=== PATIENT | female | born 1965 | race Caucasian/White ===

== ENCOUNTER 2023-07-20 11:21 | Outpatient (REF) | payer OTHER, SELFPAY ==
[2023-07-20 15:36] LABS: Iron 47 mcg/dL (30-160); Percent Iron Saturation 13 % (15-50); Total Iron Binding Capacity 356 mcg/dL (228-428); Unsaturated Iron Binding 309 ug/dL
[2023-07-20 15:44] LABS: TSH reflex Free T4 7.86 uIU/mL (0.32-4.0)
[2023-07-20 15:49] LABS: Vitamin B12 297 pg/mL (200-900)
[2023-07-20 16:20] LABS: Free T4 (Free Thyroxine) 0.74 ng/dL (0.71-1.85)
== END 2023-07-20 11:22 | disposition home or self-care (01) ==
LOC: HO.WFDLDS 11:21
PROVIDERS: Visit Provider Internal Medicine
DX: R53.83 Other fatigue (principal); R79.89 Other specified abnormal findings of blood chemistry; E03.8 Other specified hypothyroidism; E06.3 Autoimmune thyroiditis
CPT/HCPCS: 36415; 82607; 83540; 84439; 84443

== ENCOUNTER 2023-09-01 08:56 | Outpatient (AMB) | payer OTHER, SELFPAY ==
--- NOTE | 2023-09-01 09:07 | MHC.PC.OV ---
Vital Signs 09/01/23 09:13 Height 5 ft 7 in Weight 163 lb 6 oz BMI 25.6 BP 128/78 Blood Pressure Location Rt brachial Position Sitting Pulse 79 Pulse Source Pulse Oximeter Temp 97.8 F Temp Source Temporal Artery Scan Pulse Oximetry (%) 98 Oxygen Delivery Method Room Air Intake Visit Reasons: 6 week F/U depression Intake Note: patient here for follow up for depression. [place]uillon Debeader Required: No Allergies prochlorperazine [From Compazine] Allergy (Unknown, Verified 09/01/23 09:11) Throat closes Tobacco use date assessed: 07/17/23 Dental Screening Dental Screen Date: 07/17/23 HPI HPI Comments History of Present Illness Details 58 y/o female with past medical history of recurrent sinusitis, SVT likely POTS, anxiety & depression, hypothyroid, anemia presenting for follow up Anxiety/depression: Doing well with additional of low dose wellbutrin to her cymbalta. off zoloft CV: Following with cardiology. Plan for tilt table testing Increased sinus congestion, headache. ROS see HPI PHYSICAL EXAM: GENERAL: Alert and oriented x 3. NAD EYES: EOMI. Anicteric. HENT: Moist mucous membranes. No scleral icterus. No cervical lymphadenopathy. LUNGS: Clear to auscultation bilaterally. CARDIOVASCULAR: Regular rate and rhythm. No murmur. No JVD. ABDOMEN: Soft, non-tender +bs EXTREMITIES: No edema. Non-tender. SKIN: No rashes or lesions. Warm. NEUROLOGIC: No focal neurological deficits. CN II-XII grossly intact PSYCHIATRIC: Cooperative. Appropriate mood and affect ON LICENSE OF [facility] Medical History (Updated 09/03/23 @ 10:56 by Mattie Raymundo MD) Depression Anxiety Psoriasis Headache Peptic ulcer POTS (postural orthostatic tachycardia syndrome) Palpitations Sinusitis Cyst of ovary Family History (Updated 07/17/23 @ 11:52 by Maribel Benedict CMA) Father HTN (hypertension) Hypercholesteremia Cardiovascular disease Basal cell carcinoma Mother Hypercholesteremia Thyroid disorder Anxiety Other Mental disorder Social History (Updated 07/17/23 @ 11:22 by Maribel Benedict CMA) Housing: House e-Cigarette/Vaping Use: Never Used service: No Current occupational status: employed 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 1. Little interest or pleasure in doing things: several days 2. Feeling down, depressed, or hopeless: several days 3. Trouble falling or staying asleep, or sleeping too much: not at all 4. Feeling tired or having little energy: several days 5. Poor appetite or overeating: not at all 6. Feeling bad about yourself - or that you are a failure or have let yourself or your family down: not at all 7. Trouble concentrating on things, such as reading the newspaper or watching television: not at all 8. Moving or speaking so slowly that other people could have noticed. Or the opposite - being so fidgety or restless that you have been moving around a lot more than usual: not at all 9. Thoughts that you would be better off or of hurting yourself in some way: not at all Total score: 3 61313 - PHQ-9 Billing: Yes Source: Developed by Drs. Konstantin Joy, Cata Romero, Román Cagle and colleagues, with an educational jarett from [employer]. Thrive Questionnaire Date Thrive assessed: 09/01/23 I am a: Patient What is your living situation today?: I have a steady place to live Within the past 12 months, did the food you bought not last and you didn't have the money to get more?: Never true Within the past 12 months, did you worry whether your food would run out before you got money to buy more?: Never true Do you have trouble paying for medicines?: No Do you have trouble getting transportation to medical appointments?: No Do you have trouble paying your heating and electricity bill?: No Do you have trouble taking care of your child, family member or friend?: No Do you have trouble with day-to-day activities such as bathing, preparing meals, shopping, managing finances, etc.?: No Are you currently unemployed and looking for a job?: No Are you interested in more education?: No Please select the resources that you would like help with: None Currently or been in a relationship where the following occur: No concerns reported THRIVE Score: 0 TANVI-7 AMB Questionnaire TANVI-7 Date TANVI - 7 assessed: 09/01/23 Feeling nervous, anxious, or on edge: 1 = Several days Not being able to stop or control worryin = Several days Worrying too much about different things: 1 = Several days Trouble relaxin = Not at all Being so restless that it is hard to sit still: 0 = Not at all Becoming easily annoyed or irritable: 0 = Not at all Feeling afraid as if something awful might happen: 0 = Not at all Total TANVI-7 score (0-4 normal; 5-9 mild; 10-14 moderate; 15-21 severe): 3 Source: Developed by Drs. Konstantin Joy, Cata Romero, Román Cagle and colleagues, with an educational jarett from [employer]. TANVI-7 Assessment Billing TANVI-7 Assessment Tool: TANVI-7 Assessment 75881 Physical exam (Primary Care) Vital Signs: Last Vital Signs Temp 97.8 F 09/01/23 09:13 Pulse 79 09/01/23 09:13 BP 128/78 09/01/23 09:13 Pulse Ox 98 09/01/23 09:13 Oxygen Delivery Method Room Air 09/01/23 09:13 BMI result Body Mass Index 25.6 Tobacco/Smoking Status: Tobacco use Status Tobacco use date assessed 07/17/23 09/01/23 09:10 e-Cigarette/Vaping Use Never Used 09/01/23 09:10 PHQ-9: PHQ-9 Score PHQ-9: Total score 3 09/03/23 10:57 Thrive Assessment: Date of Thrive Assessment Date Thrive assessed 09/01/23 09/01/23 09:19 Currently or been in a relationship where the following occur: No concerns reported Assessment and Plan Assessment & Plan (1) Depression, major, recurrent, in partial remission: Comment: continue wellbutrin. continue cymbalta. both lower doses but could taper cymbalta and go up on wellbutrin Code(s): F33.41 - Major depressive disorder, recurrent, in partial remission (2) Recurrent sinus infections: Code(s): J32.9 - Chronic sinusitis, unspecified Medications: New azithromycin 500 mg PO DAILY 5 tabs 0RF 5 days Refilled bupropion HCl XL (Wellbutrin XL) 150 mg PO QAM 90 tabs 3RF amoxicillin-pot clavulanate 875-125 mg 1 tab PO BID 20 tabs 0RF 10 days Coding Level of Care Code Est Pt Level 4 (65327) Diagnoses Depression, major, recurrent, in partial remission F33.41 Recurrent sinus infections J32.9 Additional Codes TANVI-7 Assessment Billing - TANVI-7 Assessment Tool: TANVI-7 Assessment 71041 ([id number])
[2023-09-01 09:13] VITALS: BP 128/78; PULSE 79; TEMP 36.6; O2SAT 98; BMI 25.6
== END 2023-09-01 13:33 | disposition home or self-care (01) ==
PROVIDERS: PCP Internal Medicine; Visit Provider Internal Medicine
DX: J32.9 Chronic sinusitis, unspecified (principal); F33.41 Major depressive disorder, recurrent, in partial remission
CPT/HCPCS: 99214

== ENCOUNTER 2023-09-29 15:38 | Outpatient (REF) | payer OTHER, SELFPAY ==
--- NOTE | ~2023-09-29 | US_ITS ---
EXAMINATION: US THYROID CLINICAL INFORMATION: Other specified hypothyroidism. COMPARISON: None available. TECHNIQUE: Linear transducer grayscale and color Doppler examination with attention to the region of the thyroid. FINDINGS: SIZE: Measurements of the thyroid lobes and nodules are given in sagittal, anteroposterior and transverse dimensions respectively. Right Thyroid Lobe: 5.5 x 1.8 x 1.4 cm, volume 7.2 mL. Parenchyma: The gland echotexture is heterogeneous. Thyroid vascularity is increased. Left Thyroid Lobe: 5.0 x 2.0 x 2.0 cm, volume 10.5 mL. Parenchyma: The gland echotexture is heterogeneous. Thyroid vascularity is increased. Isthmus: 0.3 cm in maximum AP dimension. Estimated total number of nodules greater than or equal to 1 cm: 1. Radio Recorder nodules are described as follows: 1. Location: Right lower pole. Size: 1.1 x 1.0 x 0.8 cm, volume 0.5 mL. Nodule characteristics: Composition: Solid (2). Echogenicity: Hyperechoic (1). Shape: Taller than wide (3). Margins: Lobulated (2). Echogenic Foci: None (0). ACR TI-RADS total points: 8. ACR TI-RADS category: 5. 2. Location: Right lower pole. Size: 0.9 x 0.8 x 0.9 cm, volume 0.3 mL. Nodule characteristics: Composition: Solid (2). Echogenicity: Isoechoic (1). Shape: Not taller than wide (0). Margins: Smooth (0). Echogenic Foci: None (0). ACR TI-RADS total points: 3. ACR TI-RADS category: 3. 3. Location: Left midpole. Size: 2.3 x 1.6 x 1.7 cm, volume 3.1 mL. Nodule characteristics: Composition: Solid (2). Echogenicity: Hypoechoic (2). Shape: Not taller than wide (0). Margins: Smooth (0). Echogenic Foci: None (0). ACR TI-RADS total points: 4. ACR TI-RADS category: 4. NODES: No lymphadenopathy is seen in the tissue surrounding the thyroid gland. US/US thyroid IMPRESSION: 1.1 cm right TR5 thyroid nodule meets criteria for biopsy. Fine-needle aspiration recommended if not already performed. 2.3 cm left TR4 thyroid nodule meets criteria for biopsy. Fine-needle aspiration recommended if not already performed. This study was presented to me on November 20, 2023 for interpretation. PSA staff will provide results to referring provider at this time. Results provided to referring physician as requested. ACR TI-RADS RECOMMENDATION REFERENCE: Ultrasound-guided fine-needle aspiration, follow up ultrasound, no further followup. * TR1 (0 point) and TR2 (2 points): No FNA or followup * TR3 (3 points): FNA if more than or equal to 2.5 cm in maximum dimension, follow up ultrasound in 1, 3 and 5 years if 1.5 to 2.4 cm in maximum dimension. * TR4 (4-6 points): FNA if more than or equal to 1.5 cm in maximum dimension, follow up ultrasound in 1, 2, 3 and 5 years if 1 to 1.4 cm in maximum dimension. * TR5 (more than or equal to 7 points): FNA if more than or equal to 1 cm in maximum dimension, follow up ultrasound every year for 5 years if 0.5 to 0.9 cm in maximum dimension. * TR3, TR4 or TR5 nodules that are below the size threshold for follow up receive no followup. Electronically signed by: Lidia Santana MD 11/20/2023 08:26 AM EDT
== END 2023-09-29 15:39 | disposition home or self-care (01) ==
LOC: HO.US 15:38
PROVIDERS: PCP Internal Medicine; Visit Provider Internal Medicine
DX: E04.1 Nontoxic single thyroid nodule (principal); E03.8 Other specified hypothyroidism; E06.3 Autoimmune thyroiditis
CPT/HCPCS: 76536

== ENCOUNTER 2023-11-27 14:33 | Outpatient (AMB) | payer OTHER, SELFPAY ==
--- NOTE | 2023-11-27 14:07 | A.OFFPC_ITS ---
Intake Visit Reasons: thyroid u/s Intake Note: Patient would like to discuss the ultrasound results. 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 She is currently off levothyroxine. Has been off for some time. History of SVT. Anxiety/depression: Doing well with additional of low dose wellbutrin to her cymbalta. off zoloft CV: Following with cardiology. Has upcoming appt Increased sinus congestion, headache. Has felt flu like symptoms, increase sinus pressure, excessive fatigue for the past 6 weeks. ROS see HPI PHYSICAL EXAM: Telehealth [facility] Medical History (Updated 11/27/23 @ 14:24 by Mattie Raymundo MD) Depression Anxiety Psoriasis Headache Peptic ulcer POTS (postural orthostatic tachycardia syndrome) Palpitations Sinusitis Cyst of ovary Family History (Updated 07/17/23 @ 11:52 by Maribel Benedict CMA) Father HTN (hypertension) Hypercholesteremia Cardiovascular disease Basal cell carcinoma Mother Hypercholesteremia Thyroid disorder Anxiety Other Mental disorder Social History (Updated 07/17/23 @ 11:22 by Maribel Benedict CMA) Housing: House e-Cigarette/Vaping Use: Never Used service: No Current occupational status: employed 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 Konstantin Joy, Cata Romero, Román Cagle and colleagues, with an educational jarett from [employer]. Physical exam (Primary Care) Tobacco/Smoking Status: Tobacco use Status Tobacco use date assessed 07/17/23 11/27/23 14:20 e-Cigarette/Vaping Use Never Used 11/27/23 14:20 Thrive Assessment: Date of Thrive Assessment Date Thrive assessed 09/01/23 11/27/23 14:20 Telehealth Telehealth Telehealth Platform: Telephone Location of provider rendering services: practice address Location of patient: address on file Patient Identification confirmed using: Name, : Yes Telehealth method: voice only Patient verbally consented to treatment: Yes Patient verbally consented to billing insurance company: Yes Patient informed of any privacy concerns related to visit: Yes Minutes spent on Phone/Video with Pt.: 25 Assessment and Plan Assessment & Plan (1) Flu-like symptoms: Code(s): R68.89 - Other general symptoms and signs Plan: Labs ordered (2) Thyroid nodule: Code(s): E04.1 - Nontoxic single thyroid nodule Plan: Thyroid nodules-some meeting criteria for biopsy-referral to endocrine placed Check TSH Orders: Orders Monotest 11/28/23 R68.89 - Other general symptoms and signs Complete Blood Count Auto Diff 11/28/23 R68.89 - Other general symptoms and signs Lyme IgG/IgM w/reflex to WB 11/28/23 R68.89 - Other general symptoms and signs Medications: Refilled azithromycin 500 mg PO DAILY 5 tabs 0RF 5 days Coding Level of Care Code Tele Est Pt Level 4 (22108) Diagnoses Flu-like symptoms 8. Thyroid nodule E04.1
== END 2023-11-27 17:03 | disposition home or self-care (01) ==
LOC: HO.HMCFM 14:33
PROVIDERS: PCP Internal Medicine; Visit Provider Internal Medicine
DX: E04.1 Nontoxic single thyroid nodule (principal); R68.89 Other general symptoms and signs

== ENCOUNTER → 2023-11-27 14:33 | Outpatient (BNVA) | payer OTHER, SELFPAY | PROVIDERS: PCP Internal Medicine; Visit Provider Internal Medicine | DX: R68.89 Other general symptoms and signs (principal) ==

== ENCOUNTER 2023-11-28 13:54 | Outpatient (REF) | payer OTHER, SELFPAY ==
[2023-11-28 18:13] LABS: MANUAL DIFF FLAG NO
[2023-11-28 18:56] LABS: Basophils Percent Auto 0.8 % (0-2); Eosinophils Absolute Auto 0.2 X10*3/uL (0.0-0.4); Hematocrit 38.9 % (37.0-47.0); Hemoglobin 12.3 g/dl (12.0-16.0); Imm Gran Abs Auto 0.01 X10*3/uL (0.00-0.03); Imm Gran Pct Auto 0.3 % (0.0-0.4); Lymphocytes Absolute Auto 1.3 X10*3/uL (1.2-4.9); Mean Corpuscular HGB Conc 31.6 g/dl (31.0-35.0); Mean Corpuscular Hemoglobin 26.6 pg (27.0-33.0); Mean Platelet Volume 9.7 fL (9.4-12.3); Monocytes Absolute Auto 0.3 X10*3/uL (0.1-1.2); Monocytes Percent Auto 7.9 % (2-11); Neutrophils Absolute Auto 1.8 x10*3/uL (2.0-8.3); Platelet Count 204 X10*3/uL (160-400); Red Blood Count 4.63 X10*6/uL (4.20-5.50); Red Cell Distribution Width 13.6 % (11.0-16.0); White Blood Count 3.7 X10*3/uL (4.8-10.8)
[2023-11-28 18:58] LABS: Cholesterol 238 mg/dL (<200); HDL Cholesterol 55 mg/dL (>40); Iron 56 mcg/dL (30-160); LDL Cholesterol Calculated 164 mg/dL (<100); Percent Iron Saturation 16 % (15-50); Total Iron Binding Capacity 342 mcg/dL (228-428); Triglycerides 99 mg/dL (<150); Unsaturated Iron Binding 286 ug/dL
[2023-11-28 19:18] LABS: TSH reflex Free T4 3.73 uIU/mL (0.32-4.0)
[2023-11-28 20:14] LABS: Monotest Negative (Negative)
[2023-11-29 20:08] LABS: Lyme Abs Screen <0.90 index
== END 2023-11-28 13:55 | disposition home or self-care (01) ==
LOC: HO.WFDLDS 13:54
PROVIDERS: Visit Provider Internal Medicine
DX: R53.83 Other fatigue (principal); R68.89 Other general symptoms and signs; E06.3 Autoimmune thyroiditis; E03.8 Other specified hypothyroidism; R79.89 Other specified abnormal findings of blood chemistry; J32.9 Chronic sinusitis, unspecified
CPT/HCPCS: 36415; 80061; 83540; 84443; 85025; 86308; 86617; 86618

== ENCOUNTER 2023-12-08 07:40 | Outpatient (AMB) | payer OTHER, SELFPAY ==
--- NOTE | 2023-12-08 07:49 | MHC.OFFVIS ---
Vital Signs 12/08/23 07:50 Height 5 ft 7 in Weight 166 lb 14.239 oz BMI 26.1 BP 148/92 H Blood Pressure Location Lt brachial Position Sitting Pulse 85 Pulse Source Pulse Oximeter Intake Visit Reasons: Nontoxic single thyroid nodule-conf Intake Note: New patient present today for nontoxic single thyroid nodule office visit. Airline Lounge Receptionist Required: No Accompanied by: Daughter Allergies prochlorperazine [From Compazine] Allergy (Unknown, Verified 12/08/23 07:52) Throat closes Medication List - Last Reconciled 12/08/23 by Karen Cosby MD amoxicillin 1,000 mg PO BID amoxicillin-pot clavulanate 875-125 mg 1 tab PO BID 10 days azithromycin 500 mg PO DAILY 5 days blood sugar diagnostic ([employer] Ultra Test strips) As directed bupropion HCl XL (Wellbutrin XL) 150 mg PO QAM ntrgdxywlq-tvchgawuagbfo-xdge 50-325-40 mg 1 tab PO Q6H PRN 30 days ciclopirox 8% topical clobetasol 0.05% topical DAILY clotrimazole 1% 1 appl topical BID clotrimazole-betamethasone 1-0.05 % 1 appl topical BID duloxetine 60 mg PO DAILY fluticasone propionate 50 mcg/actuation 1 spray intranasal BID lorazepam 1 mg PO Q6H PRN 28 days mupirocin 2% 1 appl topical BID 30 days propranolol 20 mg PO TID silver sulfadiazine 1% appl topical HPI Comments Details: 58-year-old female coming in today for initial evaluation of multiple thyroid nodules. Also has history of hypothyroidism. Hypothyrodism was diagnosed 2016 and fabienne was on levothyroxine 75 mcg daily for a few years but was not very regular with it. She has now been off it for at least a year. Most rceent blood work from 07/27 showed TSH high at 7.8 and normal free T4 , however she remained off the medication and then most recent labs from 11/30/23 were normal TSH at 3.73. Diagnosed with thyroid nodules in [address] [facility] underwent FNA [address] [place] she thinks , was benign not sure how many nodules or which side. Ultrasound from September 2023, I reviewed the images myself which show multiple bilateral thyroid nodules. She has a left dominant 2.3 cm solid hypoechoic nodule, TR 4 category, per DAVID this is intermediate suspicion nodule with a 10-20% chance of malignancy. Meets criteria for FNA. On the right side she has a dominant 1.1 cm right lower pole nodule which is reported as taller than wide and lobulated making it a TR 5 category nodule, however when I look at the images myself, it is not very distinguished nodule, almost appears as if she has a pseudonodule. Given her history of Jelly's/hypothyroidism, she might have pseudonodules. I would like to hold off on biopsy of this nodule for now, we will look at it with the ultrasound briefly when I biopsy her left dominant nodule. But for now we will plan to follow this with a 6 month repeat ultrasound. Another subcentimeter right lower pole nodule 0.9 cm in maximum dimension does not meet criteria for biopsy, solid, isoechoic, TR 3 nodule, low suspicion category per DAVID guidelines with a 5-10% chance malignancy. Patient currently denies heat or cold intolerance, diarrhea or constipation, hair loss, palpitation, anxiety, weight changes, mood changes, low energy, changes in appearance of eyes or vision changes, tremors, increased diaphoresis or dry skin. Post menopausal since 49. Was recenlty diagnosed with POTs , was having palpitations, tachycardria before but since starting propranolol and other measures for POTS , all of this has resolved. Still reports fatigue. Not worsening. Gained 6 lbs over the summer. Patient denies any difficulty swallowing with food , but just some trouble swallowing with big pills , pain on swallowing or voice changes or difficulty breathing. Patient denies any history of childhood neck radiation. Denies having ever used lithium, amiodarone or biotin supplements. Patient denies any family history of thyroid cancer or thyroid disease. Daughter has thyroid nodules and Hashimotos. 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 [employer] Review of systems Constitutional: no fevers, chills or weight loss HEENT: no changes in vision Cardiac:palpitation now resolved with propranolol Pulmonary: No SOB GI:No abdominal pain, no nausea or vomiting, no anorexia, no blood in stool : no burning micturition, dysuria or increase in urinary frequency Physical exam General: sitting comfortably in no acute distress HEENT: normocephalic/atraumatic, EOM intact, moist oral mucosa Neck: supple, symmetrical, palpable left-sided 2 cm nodule Cardiac: normal heart sounds Pulm: normal breath sounds B/L, no added breath sounds Abd: not distended, no tenderness Extremities: no edema, no signs of myxedema Neuro: AAO x3, Speech: normal, no facial droop, moving all 4 extremities [facility] Medical History (Updated 12/08/23 @ 10:29 by Karen Cosby MD) Multinodular goiter Depression Anxiety Psoriasis Headache Peptic ulcer POTS (postural orthostatic tachycardia syndrome) Palpitations Sinusitis Cyst of ovary Family History Father HTN (hypertension) Hypercholesteremia Cardiovascular disease Basal cell carcinoma Mother Hypercholesteremia Thyroid disorder Anxiety Other Mental disorder Social History Housing: House e-Cigarette/Vaping Use: Never Used service: No Current occupational status: employed 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 Meets criteria for FNA. Unclear whether this was biopsied before. She also has a left lower lobe 1.1 cm nodule that is labeled as solid, hyperechoic, taller than wide and lobulated and commented on as a TR 5 nodule, however when I reviewed the images myself, she has a very heterogenous gland so looks more like a pseudonodule. I will plan to look at this nodule briefly when I plan to do the biopsy of the left mid lobe 2.3 cm nodule. CLINICAL INFORMATION: Other specified hypothyroidism. COMPARISON: None available. TECHNIQUE: Linear transducer grayscale and color Doppler examination with attention to the region of the thyroid. FINDINGS: SIZE: Measurements of the thyroid lobes and nodules are given in sagittal, anteroposterior and transverse dimensions respectively. Right Thyroid Lobe: 5.5 x 1.8 x 1.4 cm, volume 7.2 mL. Parenchyma: The gland echotexture is heterogeneous. Thyroid vascularity is increased. Left Thyroid Lobe: 5.0 x 2.0 x 2.0 cm, volume 10.5 mL. Parenchyma: The gland echotexture is heterogeneous. Thyroid vascularity is increased. Isthmus: 0.3 cm in maximum AP dimension. Estimated total number of nodules greater than or equal to 1 cm: 1. Lead Press Operator nodules are described as follows: 1. Location: Right lower pole. Size: 1.1 x 1.0 x 0.8 cm, volume 0.5 mL. Nodule characteristics: Composition: Solid (2). Echogenicity: Hyperechoic (1). Shape: Taller than wide (3). Margins: Lobulated (2). Echogenic Foci: None (0). ACR TI-RADS total points: 8. ACR TI-RADS category: 5. 2. Location: Right lower pole. Size: 0.9 x 0.8 x 0.9 cm, volume 0.3 mL. Nodule characteristics: Composition: Solid (2). Echogenicity: Isoechoic (1). Shape: Not taller than wide (0). Margins: Smooth (0). Echogenic Foci: None (0). ACR TI-RADS total points: 3. ACR TI-RADS category: 3. 3. Location: Left midpole. Size: 2.3 x 1.6 x 1.7 cm, volume 3.1 mL. Nodule characteristics: Composition: Solid (2). Echogenicity: Hypoechoic (2). Shape: Not taller than wide (0). Margins: Smooth (0). Echogenic Foci: None (0). ACR TI-RADS total points: 4. ACR TI-RADS category: 4. NODES: No lymphadenopathy is seen in the tissue surrounding the thyroid gland. US/US thyroid IMPRESSION: 1.1 cm right TR5 thyroid nodule meets criteria for biopsy. Fine-needle aspiration recommended if not already performed. 2.3 cm left TR4 thyroid nodule meets criteria for biopsy. Fine-needle aspiration recommended if not already performed. This study was presented to me on November 20, 2023 for interpretation. PSA staff will provide results to referring provider at this time. Results provided to referring physician as requested. 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 She was irregular when she was taking it. However she has been off it for about a year, recently she was having some symptoms tachycardia, palpitations, fatigue, however was also diagnosed POTS recently in your symptoms are improved with propranolol. She had blood work done which showed elevated TSH of 7.8 in July 2023 when she was off levothyroxine however continued to remain off it and most recently blood work done in November 2023 showed normal TSH of 3.27. Her weight has remained stable. Her palpitations/tachycardia has resolved she continues to have fatigue but it is not excessively worsening. At this time she can remain off levothyroxine if needed plan to repeat her labs in another 4 weeks. This could be in her own history dying, unusual for her to require levothyroxine for so many years and then come off it now. Plan: -ordered TSH, free T4 to be done in 1 month -remain off levothyroxine for now (2) Multinodular goiter: Code(s): E04.2 - Nontoxic multinodular goiter Category: Medical Plan: Patient with no personal history of head or neck radiation, with no family history of thyroid cancer who has a history multiple thyroid nodules diagnosed in 2013. She has had a biopsy of at least 1 of these nodules but she is not sure which side was done or what nodule was biopsied. She reports the result was benign. Ultrasound from September 2023, I reviewed the images myself which show multiple bilateral thyroid nodules. She has a left dominant 2.3 cm solid hypoechoic nodule, TR 4 category, per DAVID this is intermediate suspicion nodule with a 10-20% chance of malignancy. Meets criteria for FNA. On the right side she has a dominant 1.1 cm right lower pole nodule which is reported as taller than wide and lobulated making it a TR 5 category nodule, however when I look at the images myself, it is not very distinguished nodule, almost appears as if she has a pseudonodule. Given her history of Jelly's/hypothyroidism, she might have pseudonodules. I would like to hold off on biopsy of this nodule for now, we will look at it with the ultrasound briefly when I biopsy her left dominant nodule. But for now we will plan to follow this with a 6 month repeat ultrasound. Another subcentimeter right lower pole nodule 0.9 cm in maximum dimension does not meet criteria for biopsy, solid, isoechoic, TR 3 nodule, low suspicion category per DAVID guidelines with a 5-10% chance malignancy. I explained that it is common to have thyroid nodules. About 95% of the time these nodules are benign. However if the nodule is > 1 cm in size or suspicious on ultrasound then a fine need aspiration biopsy is recommended. We discussed that a FNAB involves 4-5 passes with a small gauge needle and material obtained is sent off for cytology.If the cytopathology is benign then the nodule will be followed annually with repeat ultrasounds. However if it is suspicious or malignant, we will need to discuss further management. Indeterminate cytology can be further investigated with repeat FNA, genetic testing or empiric lobectomy. Malignant cytology is managed with either lobectomy or total thyroidectomy. We discussed briefly that thyroid cancer is, in most patients, an indolent disease that does not affect mortality. We will arrange for FNA at next available opening of the left lower lobe 2.3 cm nodule and patient will follow up with me in clinic thereafter for results and further decision making. Plan: -obtain records of previous biopsy/ultrasound results from 04/19 possible -FNA of the left lower lobe 2.3 cm nodule with follow up 1-2 weeks after biopsy to discuss results -plan to monitor the right lower lobe 1.1 cm nodule with a repeat ultrasound 6 months which would be in June 2024 but we will also look at it when I do the biopsy of left lower lobe nodule Plan I spent 45 minutes in reviewing the record, seeing the patient and documenting in the medical record. Orders: Orders Thyroid Stimulating Hormone 1 Month E03.8 - Other specified hypothyroidism, E04.1 - Nontoxic single thyroid nodule, E06.3 - Autoimmune thyroiditis Thyroglobulin Antibodies 1 Month E03.8 - Other specified hypothyroidism, E04.1 - Nontoxic single thyroid nodule, E06.3 - Autoimmune thyroiditis Thyroid Peroxidase Antibodies 1 Month E03.8 - Other specified hypothyroidism, E04.1 - Nontoxic single thyroid nodule, E06.3 - Autoimmune thyroiditis US biopsy thyroid Today E04.1 - Nontoxic single thyroid nodule Free T4 (Free Thyroxine) 1 Month E03.8 - Other specified hypothyroidism, E04.1 - Nontoxic single thyroid nodule, E06.3 - Autoimmune thyroiditis US thyroid 6 Months E04.1 - Nontoxic single thyroid nodule Patient Instructions: Do blood work in 1 month We will schedule you for a biopsy of your left sided nodule and follow up with results Please do cancel your procedure with IR if your preference is to do this with us Plan for repeat ultrasound in June 2024 IF you are able to obtain your records that would be great, please attach pictures of records and send through portal or fax them Coding Level of Care Code New Pt Level 4 (78564) Diagnoses 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
[2023-12-08 07:50] VITALS: BP 148/92; PULSE 85; BMI 26.1
== END 2023-12-08 09:52 | disposition home or self-care (01) ==
PROVIDERS: PCP Internal Medicine; Visit Provider Student in an Organized Health Care Education/Training Program
DX: E03.8 Other specified hypothyroidism (principal); E06.3 Autoimmune thyroiditis; E04.2 Nontoxic multinodular goiter
CPT/HCPCS: 99204

== ENCOUNTER → 2023-12-08 07:40 | Outpatient (BNVA) | payer OTHER, SELFPAY | PROVIDERS: PCP Internal Medicine; Visit Provider Student in an Organized Health Care Education/Training Program ==

== ENCOUNTER → 2023-12-27 07:58 | Outpatient (BNV) | payer OTHER, SELFPAY | PROVIDERS: PCP Internal Medicine; Visit Provider Student in an Organized Health Care Education/Training Program | DX: E04.1 Nontoxic single thyroid nodule (principal) | CPT/HCPCS: 10005 ==

== ENCOUNTER 2023-12-27 08:56 | Outpatient (REF) | payer OTHER, SELFPAY ==
[2023-12-27 11:30] LABS: MANUAL DIFF FLAG NO
[2023-12-27 11:36] LABS: Eosinophils Absolute Auto 0.3 X10*3/uL (0.0-0.4); Eosinophils Percent Auto 6.7 % (0-4); Hematocrit 37.6 % (37.0-47.0); Hemoglobin 11.7 g/dl (12.0-16.0); Imm Gran Abs Auto 0.01 X10*3/uL (0.00-0.03); Imm Gran Pct Auto 0.3 % (0.0-0.4); Lymphocytes Absolute Auto 1.2 X10*3/uL (1.2-4.9); Lymphocytes Percent Auto 32.1 % (20-40); Mean Corpuscular HGB Conc 31.1 g/dl (31.0-35.0); Mean Corpuscular Hemoglobin 25.9 pg (27.0-33.0); Mean Corpuscular Volume 83.2 fL (80.0-98.0); Mean Platelet Volume 10.2 fL (9.4-12.3); Monocytes Absolute Auto 0.3 X10*3/uL (0.1-1.2); Monocytes Percent Auto 8.5 % (2-11); Neutrophils Percent Auto 51.4 % (45-73); Platelet Count 195 X10*3/uL (160-400); Red Blood Count 4.52 X10*6/uL (4.20-5.50); Red Cell Distribution Width 13.9 % (11.0-16.0); White Blood Count 3.9 X10*3/uL (4.8-10.8)
[2023-12-27 12:53] LABS: Free T4 (Free Thyroxine) 0.74 ng/dL (0.71-1.85); Thyroid Stimulating Hormone 3.53 uIU/mL (0.32-4.0)
[2023-12-29 04:05] LABS: Thyroglobulin Antibodies 1 IU/mL (< or = 1); Thyroid Peroxidase Antibodies 435 IU/mL (<9)
== END 2023-12-27 08:57 | disposition home or self-care (01) ==
LOC: HO.WFDLDS 08:56
PROVIDERS: Referring Provider Internal Medicine; Visit Provider Student in an Organized Health Care Education/Training Program
DX: R68.89 Other general symptoms and signs (principal); E03.8 Other specified hypothyroidism; E06.3 Autoimmune thyroiditis; E04.1 Nontoxic single thyroid nodule
CPT/HCPCS: 36415; 84439; 84443; 85025; 86376; 86800

== ENCOUNTER 2024-01-05 09:00 | Outpatient (AMB) | payer OTHER, SELFPAY ==
--- NOTE | 2024-01-05 09:14 | A.OFFVIS_ITS ---
Intake Visit Reasons: Abdominal pain Allergies prochlorperazine [From Compazine] Allergy (Unknown, Verified 12/08/23 07:52) Throat closes HPI Comments Details: 58 y/o female with past medical history of recurrent sinusitis, SVT likely POTS, anxiety & depression, hypothyroid, anemia presenting for abdominal pain Patient reports a one week history of pain in her lower abdomen (right side) that is above the ovaries and below and beside the umbilicus. History of appendectomy. Associated bloating and and distention. Tender to touch. bowel movements are irregular and loose without blood. No prior colonoscopy. No fevers seeing endocrine for thyroid. Non diagnostic biopsy. Sending alternate vial Anxiety/depression: Doing well with additional of low dose wellbutrin to her cymbalta. off zoloft CV: Following with cardiology. ROS see HPI PHYSICAL EXAM: GENERAL: Alert and oriented x 3. NAD. non toxic appearing EYES: EOMI. Anicteric. HENT: No scleral icterus. ABDOMEN: Patient grimaces when she palpates her abdomen [facility] Medical History (Updated 01/05/24 @ 10:02 by Mattie Raymundo MD) Multinodular goiter Depression Anxiety Psoriasis Headache Peptic ulcer POTS (postural orthostatic tachycardia syndrome) Palpitations Sinusitis Cyst of ovary Family History Father HTN (hypertension) Hypercholesteremia Cardiovascular disease Basal cell carcinoma Mother Hypercholesteremia Thyroid disorder Anxiety Other Mental disorder Social History Housing: House e-Cigarette/Vaping Use: Never Used service: No Current occupational status: employed 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 Current occupational exposures/hazards: No Cognitive needs: No Hearing needs: No Vision needs: Yes (glasses) Telehealth Telehealth Telehealth Platform: [facility] Location of provider rendering services: practice address Location of patient: address on file Patient Identification confirmed using: Name, : Yes Telehealth method: video Patient verbally consented to treatment: Yes Patient verbally consented to billing insurance company: Yes Patient informed of any privacy concerns related to visit: Yes Minutes spent on Phone/Video with Pt.: 31 Assessment & Plan Assessment & Plan (1) RLQ abdominal pain: Code(s): R10.31 - Right lower quadrant pain Category: Medical Plan: concern for gastroenteritis, diverticulitis. Urgent CT ordered (2) Umbilical pain: Code(s): R10.33 - Periumbilical pain Category: Medical Plan: see above Orders: Orders CT abdomen pelvis w IV con Today R10.31 - Right lower quadrant pain, R10.33 - Periumbilical pain Medications: New Readi-Cat 2 2%(w/v) (barium sulfate) 1 bottle two times daily for one day per radiology instructions 2 ea 0RF 1 day NS Refilled amoxicillin-pot clavulanate 875-125 mg 1 tab PO BID 20 tabs 1RF 10 days syvxmjamkf-fxgaukcnvugdu-bayg 50-325-40 mg 1 tab PO Q6H PRN 112 tabs 3RF pain 30 days Coding Level of Care Code Tele Est Pt Level 4 (04753) Diagnoses RLQ abdominal pain R10.31 Umbilical pain R10.33 Time Spent (min) 31
== END 2024-01-05 10:06 | disposition home or self-care (01) ==
LOC: HO.HMCFM 09:00
PROVIDERS: PCP Internal Medicine; Visit Provider Internal Medicine
DX: R10.31 Right lower quadrant pain (principal); R10.33 Periumbilical pain

== ENCOUNTER → 2024-01-05 09:00 | Outpatient (BNVA) | payer OTHER, SELFPAY | PROVIDERS: PCP Internal Medicine; Visit Provider Internal Medicine ==

== ENCOUNTER 2024-01-10 14:32 | Outpatient (AMB) | payer OTHER, SELFPAY ==
--- NOTE | 2024-01-10 14:37 | A.OFFVIS_ITS ---
Vital Signs 3 01/10/24 14:38 Height 5 ft 7 in Weight 166 lb 14.239 oz BMI 26.1 BP 156/82 H Blood Pressure Location Lt brachial Position Sitting Pulse 83 Pulse Source Pulse Oximeter Intake Visit Reasons: Biopsy f/u-conf Intake Note: Patient present today for biopsy results. Siebel Administrator Required: No Accompanied by: Spouse Allergies prochlorperazine [From Compazine] Allergy (Unknown, Verified 01/10/24 14:41) Throat closes HPI Comments Details: 58-year-old female coming in today for follow up of multinodular goiter. She is here today to discuss the results of her biopsy of the left 2.3 cm dominant nodule. HPI from prior visit Hypothyrodism was diagnosed 2016 and fabienne was on levothyroxine 75 mcg daily for a few years but was not very regular with it. She has now been off it for at least a year. blood work from 07/27 showed TSH high at 7.8 and normal free T4 , however she remained off the medication and then labs from 11/30/23 were normal TSH at 3.73. Diagnosed with thyroid nodules in 2013 Was following at [place] underwent FNA 2014 in [place] she thinks , was benign not sure how many nodules or which side. Ultrasound from September 2023, I reviewed the images myself which show multiple bilateral thyroid nodules. She has a left dominant 2.3 cm solid hypoechoic nodule, TR 4 category, per DAVID this is intermediate suspicion nodule with a 10- 20% chance of malignancy. Meets criteria for FNA. On the right side she has a dominant 1.1 cm right lower pole nodule which is reported as taller than wide and lobulated making it a TR 5 category nodule, however when I look at the images myself, it is not very distinguished nodule, almost appears as if she has a pseudonodule. Given her history of Jelly's/hypothyroidism, she might have pseudonodules. I would like to hold off on biopsy of this nodule for now, we will look at it with the ultrasound briefly when I biopsy her left dominant nodule. But for now we will plan to follow this with a 6 month repeat ultrasound. Another subcentimeter right lower pole nodule 0.9 cm in maximum dimension does not meet criteria for biopsy, solid, isoechoic, TR 3 nodule, low suspicion category per DAVID guidelines with a 5-10% chance malignancy. Patient currently denies heat or cold intolerance, diarrhea or constipation, hair loss, palpitation, anxiety, weight changes, mood changes, low energy, changes in appearance of eyes or vision changes, tremors, increased diaphoresis or dry skin. Post menopausal since 49. Was recenlty diagnosed with POTs , was having palpitations, tachycardria before but since starting propranolol and other measures for POTS , all of this has resolved. Still reports fatigue. Not worsening. Gained 6 lbs over the summer. Patient denies any difficulty swallowing with food , but just some trouble swallowing with big pills , pain on swallowing or voice changes or difficulty breathing. Patient denies any history of childhood neck radiation. Denies having ever used lithium, amiodarone or biotin supplements. Patient denies any family history of thyroid cancer or thyroid disease. Daughter has thyroid nodules and Hashimotos. Interval history Underwent FNA biopsy of the left dominant 2.3 cm nodule on 12/27/2023, which came back as nondiagnostic [place] category 1. Most recent labs 12/27/2023 showed normal thyroid function. 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[employer] [facility] Review of systems Constitutional: no fevers, chills or weight loss HEENT: no changes in vision Cardiac:palpitation now resolved with propranolol Pulmonary: No SOB GI:No abdominal pain, no nausea or vomiting, no anorexia, no blood in stool : no burning micturition, dysuria or increase in urinary frequency Physical exam General: sitting comfortably in no acute distress HEENT: normocephalic/atraumatic, EOM intact, moist oral mucosa Neck: supple, symmetrical, palpable left-sided 2 cm nodule Cardiac: normal heart sounds Pulm: normal breath sounds B/L, no added breath sounds Abd: not distended, no tenderness Extremities: no edema, no signs of myxedema Neuro: AAO x3, Speech: normal, no facial droop, moving all 4 extremities Laboratory Tests 12/27/23 09:00 TSH 3.53 Free T4 0.74 Laboratory Tests 07/20/23 11/28/23 11:22 13:57 TSH 7.86 H 3.73 Free T4 0.74 EXAMINATION: US THYROID 09/2023 CLINICAL INFORMATION: Other specified hypothyroidism. COMPARISON: None available. TECHNIQUE: Linear transducer grayscale and color Doppler examination with attention to the region of the thyroid. FINDINGS: SIZE: Measurements of the thyroid lobes and nodules are given in sagittal, anteroposterior and transverse dimensions respectively. Right Thyroid Lobe: 5.5 x 1.8 x 1.4 cm, volume 7.2 mL. Parenchyma: The gland echotexture is heterogeneous. Thyroid vascularity is increased. Left Thyroid Lobe: 5.0 x 2.0 x 2.0 cm, volume 10.5 mL. Parenchyma: The gland echotexture is heterogeneous. Thyroid vascularity is increased. Isthmus: 0.3 cm in maximum AP dimension. Estimated total number of nodules greater than or equal to 1 cm: 1. Opinion Polls Survey Worker nodules are described as follows: 1. Location: Right lower pole. Size: 1.1 x 1.0 x 0.8 cm, volume 0.5 mL. Nodule characteristics: Composition: Solid (2). Echogenicity: Hyperechoic (1). Shape: Taller than wide (3). Margins: Lobulated (2). Echogenic Foci: None (0). ACR TI-RADS total points: 8. ACR TI-RADS category: 5. 2. Location: Right lower pole. Size: 0.9 x 0.8 x 0.9 cm, volume 0.3 mL. Nodule characteristics: Composition: Solid (2). Echogenicity: Isoechoic (1). Shape: Not taller than wide (0). Margins: Smooth (0). Echogenic Foci: None (0). ACR TI-RADS total points: 3. ACR TI-RADS category: 3. 3. Location: Left midpole. Size: 2.3 x 1.6 x 1.7 cm, volume 3.1 mL. Nodule characteristics: Composition: Solid (2). Echogenicity: Hypoechoic (2). Shape: Not taller than wide (0). Margins: Smooth (0). Echogenic Foci: None (0). ACR TI-RADS total points: 4. ACR TI-RADS category: 4. NODES: No lymphadenopathy is seen in the tissue surrounding the thyroid gland. US/US thyroid IMPRESSION: 1.1 cm right TR5 thyroid nodule meets criteria for biopsy. Fine-needle aspiration recommended if not already performed. 2.3 cm left TR4 thyroid nodule meets criteria for biopsy. Fine-needle aspiration recommended if not already performed. This study was presented to me on November 20, 2023 for interpretation. [facility] staff will provide results to referring provider at this time. Results provided to referring physician as requested. 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 She has had a biopsy of at least 1 of these nodules but she is not sure which side was done or what nodule was biopsied. She reports the result was benign. Ultrasound from September 2023, I reviewed the images myself which show multiple bilateral thyroid nodules. She has a left dominant 2.3 cm solid hypoechoic nodule, TR 4 category, per DAVID this is intermediate suspicion nodule with a 10- 20% chance of malignancy. Meets criteria for FNA. On the right side she has a dominant 1.1 cm right lower pole nodule which is reported as taller than wide and lobulated making it a TR 5 category nodule, however when I look at the images myself, it is not very distinguished nodule, almost appears as if she has a pseudonodule. Given her history of Jelly's/hypothyroidism, she might have pseudonodules. We decided to hold off on biopsy of this nodule for now, Another subcentimeter right lower pole nodule 0.9 cm in maximum dimension does not meet criteria for biopsy, solid, isoechoic, TR 3 nodule, low suspicion category per DAVID guidelines with a 5-10% chance malignancy. Underwent FNA biopsy of the left dominant 2.3 cm nodule on 12/27/2023, which came back as nondiagnostic [place] category 1. I explained to the patient that we can get nondiagnostic results about 5-15% of the time. The chances of getting a diagnostic result after nondiagnostic is 60-80% so we will have to repeat the biopsy in about 3 months. When I plan to do a repeat biopsy in March 2024 I will also take a look at the right dominant lower pole 1.1 cm nodule to see if it has grown in size or needs to be biopsied/versus whether it is a pseudonodule. Most recent labs 12/27/2023 showed normal thyroid function. 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 She was irregular when she was taking it. However she has been off it for about a year, recently she was having some symptoms tachycardia, palpitations, fatigue, however was also diagnosed POTS recently in your symptoms are improved with propranolol. She had blood work done which showed elevated TSH of 7.8 in July 2023 when she was off levothyroxine however continued to remain off it and most recently blood work done in November and December 2023 showed normal TSH . Her weight has remained stable. Her palpitations/tachycardia has resolved she continues to have fatigue but it is not excessively worsening. 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
[2024-01-10 14:38] VITALS: BP 156/82; PULSE 83; BMI 26.1
== END 2024-01-10 15:24 | disposition home or self-care (01) ==
LOC: HO.ENCR 14:33
PROVIDERS: PCP Internal Medicine; Visit Provider Student in an Organized Health Care Education/Training Program
DX: E04.2 Nontoxic multinodular goiter (principal); E03.8 Other specified hypothyroidism; E06.3 Autoimmune thyroiditis
CPT/HCPCS: 99213

== ENCOUNTER 2024-02-15 13:58 | Outpatient (REF) | payer OTHER, SELFPAY ==
--- NOTE | ~2024-02-15 | US_ITS ---
EXAMINATION: US PELVIS CLINICAL INFORMATION: Right lower quadrant pain. COMPARISON: None available. TECHNIQUE: Ultrasound of the pelvis is performed using both transabdominal and transvaginal transducers along with Doppler. Transvaginal imaging is performed due to inadequate visualization transabdominally. FINDINGS: Uterus: The uterus is retroverted and retroflexed. It measures 7 x 2.9 x 4.8 cm. The double wall endometrial thickness is 0.2 mm. The uterus is smooth in contour and has normal myometrial echogenicity. No visible fibroid. Adnexa: Both ovaries are visualized. There is normal color flow to the adnexa. There is no ovarian torsion. There is no pelvic ascites or fluid collection. Right ovary measures 1.7 x 1.0 x 1.6 cm. This corresponds to a volume of 1.4 mL. Left ovary measures 2.0 x 1.7 x 1.4 cm. This corresponds to a volume of 2.5 mL. US/US pelvic and transvaginal IMPRESSION: The uterus and ovaries are normal in appearance. Electronically signed by: Truman Feliciano DO 02/16/2024 02:23 PM EST
--- OUTSIDE RECORDS SUMMARY | 2024-02-15 14:02 | XMS_ITS ---
Author Name [facility] Organization Unknown History of Medication Use Medication Directions Dispensed Refills Start Date End Date Stat Ciclopirox (PENLAC) 8 % Kit Apply 1 application(s) topically. 11/19/2023 active LORazepam (ATIVAN) 1 MG tablet Take 1 tablet (1 mg total) by mouth 4 times daily (every 6 hours) as needed for anxiety. 11/19/2023 active clobetasol (TEMOVATE) 0.05 % cream Apply topically 2 (two) times a day. 11/19/2023 active silver sulfADIAZINE (SILVADENE) 1 % cream Apply topically daily. 11/19/2023 active propranolol (INDERAL) 10 MG tablet Take 1 tablet (10 mg total) by mouth 2 (two) times a day. Upon waking and then after 8 hours 11/19/2023 active buPROPion (WELLBUTRIN XL) 150 MG 24 hr tablet Take 1 tablet (150 mg total) by mouth every morning. 11/19/2023 active clotrimazole (LOTRIMIN) 1 % cream Apply topically 2 (two) times a day. 11/19/2023 active mupirocin (BACTROBAN) 2 % cream Apply topically 2 (two) times a day. 11/19/2023 active DULoxetine (CYMBALTA) 60 MG capsule Take 1 capsule (60 mg total) by mouth daily. 11/19/2023 active levothyroxine (SYNTHROID, LEVOTHROID) 75 MCG tablet Take 1 tablet (75 mcg total) by mouth daily on an empty stomach. 11/19/2023 active butalbital-acetaminoph en-caffeine (FioriCET, ESGIC) 50-325-40 mg tablet Take 1 tablet by mouth 4 times daily (every 6 hours) as needed. 11/19/2023 active Problems Problem Status Onset Date Problem Type Date of Resoluti on Source Orthostatic intolerance active EncounterDiagnosisAct CCT
== END 2024-02-15 13:59 | disposition home or self-care (01) ==
LOC: HO.US 13:58
PROVIDERS: PCP Internal Medicine; Visit Provider Internal Medicine
DX: R10.33 Periumbilical pain (principal); R10.31 Right lower quadrant pain
CPT/HCPCS: 76830; 76856

== ENCOUNTER 2024-02-26 15:21 | Outpatient (AMB) | payer OTHER, SELFPAY ==
--- NOTE | 2024-02-26 15:43 | A.OFFPC_ITS ---
Vital Signs 02/26/24 15:59 Height 5 ft 7 in Weight 171 lb 8 oz BMI 26.9 BP 118/82 Blood Pressure Location Lt brachial Position Sitting Pulse 84 Pulse Source Pulse Oximeter Pulse Oximetry (%) 99 Oxygen Delivery Method Room Air Intake Visit Reasons: sinus infection Intake Note: Lower stomach pain, hot flashes, clammy, hair loss. Allergies prochlorperazine [From Compazine] Allergy (Unknown, Verified 01/10/24 14:41) Throat closes Tobacco use date assessed: 07/17/23 Dental Screening Dental Screen Date: 07/17/23 HPI HPI Comments History of Present Illness Details 58 y/o female with past medical history of recurrent sinusitis, SVT likely POTS, anxiety & depression, hypothyroid, anemia presenting for abdominal pain Patient has ongoing mid and lower abdominal pain and considerable bloating. More constipated than usual-stool can be hard or loose. Has intermittent full body sweats, day and night. Denies abnormal weight loss. She was seen in January Patient reports a one week history of pain in her lower abdomen (right side) that is above the ovaries and below and beside the umbilicus. History of appendectomy. Associated bloating and and distention. Tender to touch. bowel movements are irregular and loose without blood. No prior colonoscopy. No fevers. CT abd/pelvis was ordered but not approved. us abd & pelvis was ordered, only pelvis was performed for unclear reasons. This was benign. seeing endocrine for thyroid. Non diagnostic biopsy. TSH has normalized recently. TPO still elevated Anxiety/depression: Doing well with additional of low dose wellbutrin to her cymbalta. off zoloft CV: Following with cardiology, Dr Jossy WEBB see HPI PHYSICAL EXAM: GENERAL: Alert and oriented x 3. NAD EYES: EOMI. Anicteric. HENT: Moist mucous membranes. No scleral icterus. No cervical lymphadenopathy. LUNGS: Clear to auscultation bilaterally. CARDIOVASCULAR: Regular rate and rhythm. No murmur. No JVD. ABDOMEN: Distended, visibly bloated, tender to palptation +bs, no rebound or rigidity EXTREMITIES: No edema. Non-tender. SKIN: No rashes or lesions. Warm. NEUROLOGIC: No focal neurological deficits. CN II-XII grossly intact PSYCHIATRIC: Cooperative. Appropriate mood and affect [facility] Medical History (Updated 02/29/24 @ 14:45 by Mattie Raymundo MD) Multinodular goiter Depression Anxiety Psoriasis Headache Peptic ulcer POTS (postural orthostatic tachycardia syndrome) Palpitations Sinusitis Cyst of ovary Family History Father HTN (hypertension) Hypercholesteremia Cardiovascular disease Basal cell carcinoma Mother Hypercholesteremia Thyroid disorder Anxiety Other Mental disorder Social History Housing: House e-Cigarette/Vaping Use: Never Used service: No Current occupational status: employed 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 1. Little interest or pleasure in doing things: not at all 2. Feeling down, depressed, or hopeless: several days 3. Trouble falling or staying asleep, or sleeping too much: several days 4. Feeling tired or having little energy: more than half the days 5. Poor appetite or overeating: not at all 6. Feeling bad about yourself - or that you are a failure or have let yourself or your family down: not at all 7. Trouble concentrating on things, such as reading the newspaper or watching television: not at all 8. Moving or speaking so slowly that other people could have noticed. Or the opposite - being so fidgety or restless that you have been moving around a lot more than usual: not at all 9. Thoughts that you would be better off or of hurting yourself in some way: not at all Total score: 4 Source: Developed by Drs. Konstantin Joy, Cata Romero, Román Cagle and colleagues, with an educational jarett from [employer]. Thrive Questionnaire Date Thrive assessed: 09/01/23 I am a: Patient What is your living situation today?: I have a steady place to live Within the past 12 months, did the food you bought not last and you didn't have the money to get more?: Never true Within the past 12 months, did you worry whether your food would run out before you got money to buy more?: Never true Do you have trouble paying for medicines?: No Do you have trouble getting transportation to medical appointments?: No Do you have trouble paying your heating and electricity bill?: No Do you have trouble taking care of your child, family member or friend?: No Do you have trouble with day-to-day activities such as bathing, preparing meals, shopping, managing finances, etc.?: No Are you currently unemployed and looking for a job?: No Are you interested in more education?: No Please select the resources that you would like help with: None Currently or been in a relationship where the following occur: No concerns reported THRIVE Score: 0 AUDIT C Alcohol Use Questionnaire (AUDIT-C) 1. How often do you have a drink containing alcohol?: Never Total Score: 0 TANVI-7 AMB Questionnaire TANVI-7 Date TANVI - 7 assessed: 09/01/23 Feeling nervous, anxious, or on edge: 2 = More than half the days Not being able to stop or control worryin = More than half the days Worrying too much about different things: 2 = More than half the days Trouble relaxin = More than half the days Being so restless that it is hard to sit still: 2 = More than half the days Becoming easily annoyed or irritable: 1 = Several days Feeling afraid as if something awful might happen: 0 = Not at all Total TANVI-7 score (0-4 normal; 5-9 mild; 10-14 moderate; 15-21 severe): 11 Source: Developed by Drs. Konstantin Joy, Cata Romero, Román Cagle and colleagues, with an educational jarett from [employer]. Physical exam (Primary Care) Vital Signs: Last Vital Signs Pulse 84 02/26/24 15:59 BP 118/82 02/26/24 15:59 Pulse Ox 99 02/26/24 15:59 Oxygen Delivery Method Room Air 02/26/24 15:59 BMI result Body Mass Index 26.9 Tobacco/Smoking Status: Tobacco use Status Tobacco use date assessed 07/17/23 02/26/24 15:44 e-Cigarette/Vaping Use Never Used 02/26/24 15:44 PHQ-9: PHQ-9 Score PHQ-9: Total score 4 02/29/24 14:45 Thrive Assessment: Date of Thrive Assessment Date Thrive assessed 09/01/23 02/26/24 15:44 Currently or been in a relationship where the following occur: No concerns reported Coding Level of Care Code Est Pt Level 4 (93195) Diagnoses Abdominal bloating R14.0 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 Labs ordered, printed -patient plans to go to [place] (2) Hypothyroid: Code(s): E03.9 - Hypothyroidism, unspecified Category: Medical Qualifiers: Hypothyroidism type: due to Jelly's thyroiditis Qualified Code(s): E03.8 - Other specified hypothyroidism; E06.3 - Autoimmune thyroiditis Plan: Currently euthyroid with evidence of ongoing autoimmune disease (3) Depression, major, recurrent, in partial remission: Code(s): F33.41 - Major depressive disorder, recurrent, in partial remission Category: Medical Plan: Continue current medications Orders: Orders Basic Metabolic Panel 02/26/24 R10.9 - Unspecified abdominal pain, R14.0 - Abdominal distension (gaseous) Complete Blood Count Auto Diff 02/26/24 R61 - Generalized hyperhidrosis IRON PROFILE 02/26/24 R61 - Generalized hyperhidrosis TSH reflex Free T4 02/26/24 R61 - Generalized hyperhidrosis UA CC w/rflx Micro + Cult 02/26/24 R61 - Generalized hyperhidrosis H pylori Ag Stool 02/26/24 R10.9 - Unspecified abdominal pain, R14.0 - Abdominal distension (gaseous) T Spot TB 02/26/24 R61 - Generalized hyperhidrosis Referrals Gastroenterology Referral R10.31 - Right lower quadrant pain, R10.33 - Periumbilical pain, R10.9 - Unspecified abdominal pain, R14.0 - Abdominal distension (gaseous) Medications: Refilled amoxicillin-pot clavulanate 875-125 mg 1 tab PO BID 20 tabs 1RF 10 days
[2024-02-26 15:59] VITALS: BP 118/82; PULSE 84; O2SAT 99; BMI 26.9
== END 2024-02-26 16:29 | disposition home or self-care (01) ==
PROVIDERS: PCP Internal Medicine; Visit Provider Internal Medicine
DX: R14.0 Abdominal distension (gaseous) (principal); E03.8 Other specified hypothyroidism; E06.3 Autoimmune thyroiditis; F33.41 Major depressive disorder, recurrent, in partial remission

== ENCOUNTER 2024-03-04 08:54 | Outpatient (REF) | payer OTHER, SELFPAY ==
--- NOTE | ~2024-03-04 | US_ITS ---
EXAMINATION: US ABDOMEN COMPLETE CLINICAL INFORMATION: Periumbilical pain.. Right lower quadrant pain COMPARISON: None available. TECHNIQUE: Real-time imaging of the abdominal viscera. FINDINGS: PANCREAS: Visualized portions are unremarkable. ABDOMINAL AORTA: The proximal, mid, and distal segments are normal in caliber. INFERIOR VENA CAVA: Visualized portions are normal. LIVER: The liver is normal in size. The liver contour is normal. Parenchymal echogenicity is normal. No focal hepatic lesion. There is no intrahepatic biliary duct dilatation seen. GALLBLADDER: The gallbladder is physiologically distended without evidence of stones, sludge, polyps, wall thickening or pericholecystic fluid. Gallbladder wall thickness is 0.26 cm COMMON BILE DUCT: Normal in caliber measuring 0.52 cm in diameter. RIGHT KIDNEY: No hydronephrosis. No renal calculi or focal parenchymal lesions. The kidney measures 11.0 cm in maximum dimension. LEFT KIDNEY: No hydronephrosis. No renal calculi or focal parenchymal lesions. The kidney measures 12.0 cm in maximum dimension. SPLEEN: The spleen measures 12.0 cm in maximum dimension. FREE FLUID: None. US/US abdomen complete IMPRESSION: Unremarkable complete abdomen ultrasound. Electronically signed by: Conrad Mariscal MD 03/04/2024 02:06 PM [facility] [place]
== END 2024-03-04 08:55 | disposition home or self-care (01) ==
LOC: HO.HMGCX 08:54
PROVIDERS: PCP Internal Medicine; Visit Provider Internal Medicine
DX: R10.33 Periumbilical pain (principal); R10.31 Right lower quadrant pain
CPT/HCPCS: 76700

== ENCOUNTER → 2024-03-04 08:57 | Outpatient (BNV) | payer OTHER, SELFPAY | PROVIDERS: PCP Internal Medicine; Visit Provider Radiology Diagnostic Radiology | DX: R10.33 Periumbilical pain (principal); R10.31 Right lower quadrant pain | CPT/HCPCS: 76700 ==

== ENCOUNTER 2024-03-18 15:28 | Outpatient (AMB) | payer OTHER, SELFPAY ==
--- NOTE | 2024-03-18 16:20 | MHC.PC.OV ---
Vital Signs 03/18/24 16:22 Height 5 ft 7 in Intake Visit Reasons: Physical Intake Note: Physical Organisational Psychologist Required: No Allergies prochlorperazine [From Compazine] Allergy (Unknown, Verified 03/18/24 16:20) Throat closes Tobacco use date assessed: 07/17/23 Dental Screening Dental Screen Date: 07/17/23 HPI HPI Comments History of Present Illness Details 58 y/o female with past medical history of recurrent sinusitis, SVT likely POTS, anxiety & depression, hypothyroid, anemia presenting for physical Ongoing mid and lower abdominal pain and considerable bloating. Change in stools-More constipated than usual-stool can be hard or loose. This is now accompanied at times by diarrhea. Has intermittent full body sweats, day and night. For the past 2-3 months now. Had abd & pelvic u/s which were fairly reassuring. Continues to have sweating episodes. She was seen in January Patient reports a one week history of pain in her lower abdomen (right side) that is above the ovaries and below and beside the umbilicus. History of appendectomy. Associated bloating and and distention. Tender to touch. bowel movements are irregular and loose without blood. No prior colonoscopy. No fevers. CT abd/pelvis was ordered but not approved. Seeing endocrine for thyroid. Non diagnostic biopsy. Repeat is scheduled. TSH has normalized recently. TPO still elevated Anxiety/depression: Doing well with additional of low dose wellbutrin to her cymbalta. off zoloft which she did tolerate. She does report that she still is mildly depressed at times. Prone to being overwhelmed. CV: Following with cardiology, Dr Fenton. SVT, POTS. Taking propranolol currently once daily-they recommend getting up to twice daily Recurrent sinus infection-has seen ENT. Recent augmentin course with mild but not near total improvement. ROS see HPI PHYSICAL EXAM: GENERAL: Alert and oriented x 3. NAD EYES: EOMI. Anicteric. HENT: Moist mucous membranes. No scleral icterus. No cervical lymphadenopathy. LUNGS: Clear to auscultation bilaterally. CARDIOVASCULAR: Regular rate and rhythm. No murmur. No JVD. ABDOMEN: Distended, visibly bloated, tender to palptation +bs, no rebound or rigidity EXTREMITIES: No edema. Non-tender. SKIN: No rashes or lesions. Warm. NEUROLOGIC: No focal neurological deficits. CN II-XII grossly intact PSYCHIATRIC: Cooperative. 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 1. Little interest or pleasure in doing things: several days 2. Feeling down, depressed, or hopeless: several days 3. Trouble falling or staying asleep, or sleeping too much: more than half the days 4. Feeling tired or having little energy: more than half the days 5. Poor appetite or overeating: not at all 6. Feeling bad about yourself - or that you are a failure or have let yourself or your family down: not at all 7. Trouble concentrating on things, such as reading the newspaper or watching television: not at all 8. Moving or speaking so slowly that other people could have noticed. Or the opposite - being so fidgety or restless that you have been moving around a lot more than usual: not at all 9. Thoughts that you would be better off or of hurting yourself in some way: not at all Total score: 6 Depression Screening Interpretation: Positive Depression Screening Follow-up: Existing condition and New Medication prescribed Depression Screening Done: Yes 47537 - PHQ-9 Billing: Yes Source: Developed by Drs. Konstantin Joy, Cata Romero, Román Cagle and colleagues, with an educational jarett from [employer]. Thrive Questionnaire Date Thrive assessed: 03/14/24 I am a: Patient What is your living situation today?: I have a steady place to live Within the past 12 months, did the food you bought not last and you didn't have the money to get more?: Never true Within the past 12 months, did you worry whether your food would run out before you got money to buy more?: Never true Do you have trouble paying for medicines?: No Do you have trouble getting transportation to medical appointments?: No Do you have trouble paying your heating and electricity bill?: No Do you have trouble taking care of your child, family member or friend?: No Do you have trouble with day-to-day activities such as bathing, preparing meals, shopping, managing finances, etc.?: No Are you currently unemployed and looking for a job?: No Are you interested in more education?: No Please select the resources that you would like help with: None Currently or been in a relationship where the following occur: I choose not to answer THRIVE Score: 0 AUDIT C Alcohol Use Questionnaire (AUDIT-C) 1. How often do you have a drink containing alcohol?: Never Total Score: 0 TANVI-7 AMB Questionnaire TANVI-7 Date TANVI - 7 assessed: 09/01/23 Feeling nervous, anxious, or on edge: 1 = Several days Not being able to stop or control worryin = Several days Worrying too much about different things: 1 = Several days Trouble relaxin = Several days Being so restless that it is hard to sit still: 0 = Not at all Becoming easily annoyed or irritable: 1 = Several days Feeling afraid as if something awful might happen: 0 = Not at all Total TANVI-7 score (0-4 normal; 5-9 mild; 10-14 moderate; 15-21 severe): 5 Source: Developed by Drs. Konstantin Joy, Cata Romero, Román Cagle and colleagues, with an educational jarett from [employer]. Physical exam (Primary Care) Tobacco/Smoking Status: Tobacco use Status Tobacco use date assessed 07/17/23 03/18/24 16:24 e-Cigarette/Vaping Use Never Used 03/18/24 16:24 PHQ-9: PHQ-9 Score PHQ-9: Total score 6 03/18/24 16:34 Depression Screening Interpretation: Positive Depression Screening Follow-up: Existing condition and New Medication prescribed Thrive Assessment: Date of Thrive Assessment Date Thrive assessed 03/14/24 03/18/24 16:24 Currently or been in a relationship where the following occur: I choose not to answer Coding Level of Care Code Est Pt Prev Care 40-64y(10510) Diagnoses Physical exam Z00.00 Change in bowel function R19.8 Depression, major, recurrent, in partial remission F33.41 Additional Codes PHQ-9 - 24361 - PHQ-9 Billing: Yes ([id number]) Assessment & Plan Assessment & Plan (1) Physical exam: Code(s): Z00.00 - Encounter for general adult medical examination without abnormal findings Category: Medical Plan: Preventive measures discussed Chronic medical conditions, medications reconciled (2) Change in bowel function: Code(s): R19.8 - Other specified symptoms and signs involving the digestive system and abdomen Category: Medical Plan: Patient continues to have abdominal pain, change in bowel function. u/s abd & pelvis non diagnostic. CT abd/pelvis ordered. GI referral (3) Depression, major, recurrent, in partial remission: Code(s): F33.41 - Major depressive disorder, recurrent, in partial remission Category: Medical Plan: Start low dose zoloft 12.5 to 25mg daily. Continue cymbalta, wellbutrin. Orders: Orders CT abdomen pelvis w IV con 03/18/24 R10.9 - Unspecified abdominal pain, R14.0 - Abdominal distension (gaseous), R19.8 - Other specified symptoms and signs involving the digestive system and abdomen, R61 - Generalized hyperhidrosis Medications: New levofloxacin 750 mg PO DAILY 10 tabs 0RF sertraline 25 mg PO DAILY 90 tabs 3RF
== END 2024-03-18 17:18 | disposition home or self-care (01) ==
PROVIDERS: PCP Internal Medicine; Visit Provider Internal Medicine
DX: Z00.00 Encounter for general adult medical examination without abnormal findings (principal); R19.8 Other specified symptoms and signs involving the digestive system and abdomen; F33.41 Major depressive disorder, recurrent, in partial remission

== ENCOUNTER → 2024-03-18 15:28 | Outpatient (BNVA) | payer OTHER, SELFPAY | PROVIDERS: PCP Internal Medicine; Visit Provider Internal Medicine | DX: Z00.00 Encounter for general adult medical examination without abnormal findings (principal); R19.8 Other specified symptoms and signs involving the digestive system and abdomen; R10.30 Lower abdominal pain, unspecified; R14.0 Abdominal distension (gaseous); F33.41 Major depressive disorder, recurrent, in partial remission; F41.9 Anxiety disorder, unspecified | CPT/HCPCS: 96127 ==

== ENCOUNTER 2024-04-03 07:56 | Outpatient (REF) | payer OTHER, SELFPAY ==
--- OUTSIDE RECORDS SUMMARY | 2024-04-03 07:58 | XMS_ITS | Encounter Summary ---
Author Organization [facility] Address [address] [place] [address] Care Team Providers Care Systems Integration Advisor Name Role Phone Mattie Louise MD Primary [facility] Provider [facility], [facility] Primary Care Provider Unavailabl e Mattie Louise MD Primary Care Provider [facility], Pcp Primary Care Provider Unavailabl e Encounter Details Date Type Department Care Team Description 08/30/2016 Pt. Non Urgent Medic al Question Medicine/Pediatrics - [address] [phone] Bella Valderrama PA-C Social History Tobacco Use Types Packs/Day Years Used Date Smoking Tobacco: Never Smokeless Tobacco: Never Alcohol Use Standard Drinks/Week Comments No 0 (1 standard drink = 0.6 oz pur e alcohol) Sex Assigned at Date Recorded Not on file documented as of this encounter Progress Notes * Daniela Trevino L.P.N. - 08/30/2016 4:22 PM EDTFrom: Brie Curry To: Bella Valderrama PA-C Sent: 08/30/2016 3:43 PM EDT Subject: test results Dear Dr. Valderrama, Do you have my Iron, B12 and the rest of the results back as well? Thank you so much. Brie documented in this encounter Plan of Treatment Not on file documented as of this encounter Visit Diagnoses Not on filedocumented in this encounter Care Teams Systems Integration Advisor Relationship Specialty Start Date End Date Mattie Louise MD PCP - General Internal Medicine 02/16/15 07/06/20 [facility], Pcp PCP - General Internal Medicine 07/07/20 12/10/20 Mattie Louise MD PCP - General Internal Medicine 12/11/20 03/02/21 [facility], Pcp PCP - General Internal Medicine 03/03/21 documented as of this encounter
--- OUTSIDE RECORDS SUMMARY | 2024-04-03 07:58 | XMS_ITS | Encounter Summary ---
Author Organization [facility] Address [address] [place] [address] Care Team Providers Care Machine Sneller Name Role Phone Odell Gomes MD Primary Care Provider Saman Villarreal MD Primary Care Provider Unavail able Mattie Louise MD Primary Care Provider Unavaila [facility], Pcp Primary Care Provider Unavailabl e Mattie Louise MD Primary Care Provider [facility], Pcp Primary Care Provider Unavailabl e Encounter Details Date Type Department Care Team Description 01/27/2014 Pt. Non Urgent Medic al Question Medicine/Pediatrics - [address] [phone] Odell Gomes MD Social History Tobacco Use Types Packs/Day Years Used Date Smoking Tobacco: Never Smokeless Tobacco: Never Alcohol Use Standard Drinks/Week Comments No 0 (1 standard drink = 0.6 oz pur e alcohol) Sex Assigned at Date Recorded Not on file documented as of this encounter Progress Notes * Joy Tong Rn - 01/27/2014 11:07 AM ESTFrom: Brie Curry To: Odell Gomes MD Sent: 01/27/2014 10:52 AM EST Subject: my symptoms had not improved Hello, I met with Carlos Cordero on Monday. I do not have her email information on [employer], so I thought itwas best to contact you. She had told me to contact her today (Monday) if my symptoms had not improved or had gotten worse. If this was the case, she would prescribe a Z-Pack for me and fax it to [facility]. My symptoms have not improved, I feel worse than before, and I spent my whole weekend in bed. I believe a Z-Pack will help. If I could get the script sent over today, I would really appreciate it. Thank you, Brie documented in this encounter Plan of Treatment Not on file documented as of this encounter Visit Diagnoses Not on filedocumented in this encounter Care Teams Machine Sneller Relationship Specialty Start Date End Date Odell Gomes MD PCP - General Internal Medicine 07/08/13 03/05/14 Saman Gomes MD PCP - General Internal Medicine 03/06/14 02/15/15 Mattie Louise MD PCP - General Internal Medicine 02/16/15 07/06/20 [facility], Pcp PCP - General Internal Medicine 07/07/20 12/10/20 Mattie Louise MD PCP - General Internal Medicine 12/11/20 03/02/21 [facility], Pcp PCP - General Internal Medicine 03/03/21 documented as of this encounter
--- OUTSIDE RECORDS SUMMARY | 2024-04-03 07:58 | XMS_ITS | Encounter Summary ---
Author Organization [facility] Address [address] [place] [address] Care Team Providers Care Lockstitch Zipper Setter Name Role Phone Mattie Louise MD [facility], Pcp Primary Care Provider Unavailabl e Mattie Louise MD Primary Care Provider [facility], Pcp Primary Care Provider Unavailabl e Encounter Details Date Type Department Care Team Description 12/15/2016 Pt. Non Urgent Medical Question Medicine/Pediatrics - [address] [phone] Mattie Louise MD Social History Tobacco Use Types Packs/Day Years Used Date Smoking Tobacco: Never Smokeless Tobacco: Never Alcohol Use Standard Drinks/Week Comments No 0 (1 standard drink = 0.6 oz pur e alcohol) Sex Assigned at Date Recorded Not on file documented as of this encounter Progress Notes * Dory Liu RN - 12/15/2016 9:25 AM EDTFrom: Brie Curry To: Mattie Louise MD Sent: 12/15/2016 8:18 AM EDT Subject: Sinus Infection Hi Mattie, So after the liquid augmentin antibiotic, my symptoms started to improve, but are not gone. A lot of gross discolored mucus is coming out and I think the infection is still there. Do you think another round of the liquid augmentin would do the trick? Still not feeling too good. Thank you! Brie documented in this encounter Plan of Treatment Not on file documented as of this encounter Visit Diagnoses Not on filedocumented in this encounter Care Teams Lockstitch Zipper Setter Relationship Specialty Start Date End Date Mattie Louise MD PCP - General Internal Medicine 02/16/15 07/06/20 [facility], Pcp PCP - General Internal Medicine 07/07/20 12/10/20 Mattie Louise MD PCP - General Internal Medicine 12/11/20 03/02/21 [facility], Pcp PCP - General Internal Medicine 03/03/21 documented as of this encounter
--- OUTSIDE RECORDS SUMMARY | 2024-04-03 07:58 | XMS_ITS | Encounter Summary ---
Author Organization [facility] Address [address] [place] [address] Care Team Providers Care Field Crop Farm Worker Name Role Phone Mattie Louise MD Primary Care Provider [facility], Pcp Primary Care Provider Unavailabl Mattie Jacobs MD Primary Care Provider [facility], Pcp Primary Care Provider Unavailabl e Encounter Details Date Type Department Care Team Description 06/22/2015 Pt. Non Urgent Medic al Question Medicine/Pediatrics - [address] [phone] Carlos Cordero PA-C Social History Tobacco Use Types Packs/Day Years Used Date Smoking Tobacco: Never Smokeless Tobacco: Never Alcohol Use Standard Drinks/Week Comments No 0 (1 standard drink = 0.6 oz pur e alcohol) Sex Assigned at Date Recorded Not on file documented as of this encounter Progress Notes * Donna Nicole L.P.N. - 06/22/2015 9:28 AM EDTFrom: Brie Curry To: Carlos Cordero PA-C Sent: 06/22/2015 9:24 AM EDT Subject: Sinus Infection Symptoms Continue Hi, The sinus infection symptoms have improved since I started antibiotics; however, they have not completely gone away and I believe that is partially due to the fact that the infection was so far alongbefore I came in to see you. Sinus pressure, post-nasal drip, mucus/discharge, sinus pain, and fatigue still continue. I think I need another round of antibiotics - would you recommend this? It wouldhave to be in liquid form though since it's easier for me to take. Thank you so much, Brie documented in this encounter Plan of Treatment Not on file documented as of this encounter Visit Diagnoses Not on filedocumented in this encounter Care Teams Field Crop Farm Worker Relationship Specialty Start Date End Date Mattie Louise MD PCP - General Internal Medicine 02/16/15 07/06/20 [facility], Pcp PCP - General Internal Medicine 07/07/20 12/10/20 Mattie Louise MD PCP - General Internal Medicine 12/11/20 03/02/21 [facility], Pcp PCP - General Internal Medicine 03/03/21 documented as of this encounter
--- OUTSIDE RECORDS SUMMARY | 2024-04-03 07:58 | XMS_ITS | Clinical Summary ---
Author Organization [facility] Address [address] [place] [address] Care Team Providers Care Global Project Manager Name Role Phone Mattie Raymundo MD Primary Care Provider [phone] Allergies Active Allergy Reactions Criticality Noted Date Comments Prochlorperazine Anaphylaxis High 11/14/2023 Medications Medication Sig Dispensed Refills Start Date End Date Status buPROPion (WELLBUTRIN XL) 150 MG 24 hr tablet Take 1 tablet (150 mg total) by mouth every morning. 10/21/2023 Active butalbital-acetamino phen-caffeine (FioriCET, ESGIC) 50-325-40 mg tablet Take 1 tablet by mouth 4 times daily (every 6 hours) as needed. 09/18/2023 Active DULoxetine (CYMBALTA) 60 MG capsule Take 1 capsule (60 mg total) by mouth daily. 09/11/2023 Active levothyroxine (SYNTHROID, LEVOTHROID) 75 MCG tablet Take 1 tablet (75 mcg total) by mouth daily on an empty stomach. 10/09/2023 Active LORazepam (ATIVAN) 1 MG tablet Take 1 tablet (1 mg total) by mouth 4 times daily (every 6 hours) as needed for anxiety. 10/17/2023 Active Ciclopirox (PENLAC) 8 % Kit Apply 1 application(s) topically. Active clobetasol (TEMOVATE) 0.05 % cream Apply topically 2 (two) times a day. Active clotrimazole (LOTRIMIN) 1 % cream Apply topically 2 (two) times a day. Active mupirocin (BACTROBAN) 2 % cream Apply topically 2 (two) times a day. Active silver sulfADIAZINE (SILVADENE) 1 % cream Apply topically daily. Active propranolol (INDERAL) 10 MG tabletIndications:PO TS (postural orthostatic tachycardia syndrome) Take 1 tablet (10 mg total) by mouth 2 (two) times a day. Upon waking and then after 8 hours 60 tablet 5 11/14/2023 05/12/2024 Active Encounters Date Type Department Care Team Description 01/19/2024 10:13 AM EST - 01/19/2024 11:59 PM EST Hospital Encounter [facility] [place] at [address] [phone] Kartik Freitas PA-C Discharge Disposition: Home or Self Care from Last 3 Months Social History Tobacco Use Types Packs/Day Years Used Date Smoking Tobacco: Never Assessed Sex and Gender Information Value Date Recorded Sex Assigned at Female 10/18/2023 10:55 AM EDT Gender Identity Female 10/18/2023 10:55 AM EDT Sexual Orientation Heterosexual (straight) 10/17 10:55 AM EDT Last Filed Vital Signs Vital Sign Reading Time Taken Comments Blood Pressure 149/93 11/14/2023 9:35 AM EDT Pulse 114 11/14/2023 9:34 AM EDT Temperature - - Respiratory Rate - - Oxygen Saturation 97% 11/14/2023 9:34 AM EDT Inhaled Oxygen Concentration - - Weight 74.8 kg (164 lb 12.8 oz) 11/14/2023 9:34 AM EDT Height 170.2 cm (5' 7 ) 11/14/2023 9:34 AM EDT Body Mass Index 25.81 11/14/2023 9:34 AM EDT Plan of Treatment Upcoming Encounters Date Type Department Care Team (Late st Contact Info) Description 05/10/2024 10:30 AM EST Appointment [facility] [place] at [address] [phone] Kartik Freitas PA-C [address] [place] [address] Health Maintenance Due Date Last Done Comments Hepatitis C Virus Screening 1964 HIV Screening 1977 DTaP/Tdap/Td Vaccines (1 - Tdap) 06/22/1983 Hepatitis B Vaccines (1 of 3 - 19+ 3-dose series) 06/04 Pap Smear (Ages 21-65) 1985 Mammogram 2004 Colonoscopy 2009 Pneumococcal Vaccines 50+ (1 of 1 - PCV) 2014 Zoster (Shingles) Vaccine (1 of 2) 2014 Influenza Vaccine 10/05/2023 COVID-19 Vaccine ( - 2023- season) 2023 Care Teams Global Project Manager Relationship Specialty Start Date End Date Mattie Raymundo MD [address] [place] [phone] PCP - General Internal Medicine 10/18/23
--- OUTSIDE RECORDS SUMMARY | 2024-04-03 07:58 | XMS_ITS | Encounter Summary ---
Author Organization [facility] Address [address] [place] [address] Care Team Providers Care Mothercraft Nurse Name Role Phone Mattie Louise MD Primary Care Provider Unavaila [facility], Pcp Primary Care Provider Unavailabl e Mattie Louise MD Primary Care Provider [facility], Pcp Primary Care Provider Unavailabl e Encounter Details Date Type Department Care Team Description 06/22/2015 Orders Only Medicine/Pediatrics - [address] [phone] Carlos Cordero PA-C Social History Tobacco Use Types Packs/Day Years Used Date Smoking Tobacco: Never Smokeless Tobacco: Never Alcohol Use Standard Drinks/Week Comments No 0 (1 standard drink = 0.6 oz pur e alcohol) Sex Assigned at Date Recorded Not on file documented as of this encounter Plan of Treatment Not on file documented as of this encounter Visit Diagnoses Not on filedocumented in this encounter Care Teams Mothercraft Nurse Relationship Specialty Start Date End Date Mattie Louise MD PCP - General Internal Medicine 02/16/15 07/06/20 [facility], Pcp PCP - General Internal Medicine 07/07/20 12/10/20 Mattie Louise MD PCP - General Internal Medicine 12/11/20 03/02/21 [facility], Pcp PCP - General Internal Medicine 03/03/21 documented as of this encounter
--- OUTSIDE RECORDS SUMMARY | 2024-04-03 07:58 | XMS_ITS | Encounter Summary ---
Author Organization [facility] Address [address] [place] [address] Care Team Providers Care Machine Heel Seat Fitter Name Role Phone Mattie Louise MD Primary Care Provider Unavaila [facility], Pcp Primary Care Provider Unavailabl e Mattie Louise MD Primary Care Provider Unavaila [facility], Pcp Primary Care Provider Unavailabl e Encounter Details Date Type Department Care Team Description 01/04/2019 [facility] Medical Records [address] [place] [id number] Abstract, Provider Social History Tobacco Use Types Packs/Day Years [...] filedocumented in this encounter Care Teams Machine Heel Seat Fitter Relationship Specialty Start Date End Date Mattie Louise MD PCP - General Internal Medicine 02/16/15 07/06/20 [facility], Pcp PCP - General Internal Medicine 07/07/20 12/10/20 Mattie Louise MD PCP - General Internal Medicine 12/11/20 03/02/21 [facility], Pcp PCP - General Internal Medicine 03/03/21 documented as of this encounter
--- OUTSIDE RECORDS SUMMARY | 2024-04-03 07:58 | XMS_ITS | Encounter Summary ---
Author Organization [facility] Address [address] [place] [address] Care Team Providers Care Grooming Assistant Name Role Phone Mattie Louise MD Primary Care Provider Unavaila [facility], Pcp Primary Care Provider Unavailabl e Mattie Louise MD Primary Care Provider [facility], Pcp Primary Care Provider Unavailabl e Encounter Details Date Type Department Care Team Description 01/04/2019 Orders Only Medical Records [address] [place] [id number] Mattie Louise MD Social History Tobacco Use Types Packs/Day Years Used Date Smoking Tobacco: Never Smokeless Tobacco: Never Alcohol Use Standard Drinks/Week Comments No 0 (1 standard drink = 0.6 oz pur e alcohol) Sex Assigned at Date Recorded Not on file documented as of this encounter Plan of Treatment Not on file documented as of this encounter Procedures Procedure Name Priority Date/Time Associated Diagnosis Comments OUTSIDE ECHO Routine 12/31/2018 documented in this encounter Results * OUTSIDE ECHO (12/31/2018) Mattie Louise MD CARDIOLOGY documented in this encounter Visit Diagnoses Not on filedocumented in this encounter Care Teams Grooming Assistant Relationship Specialty Start Date End Date Mattie Louise MD PCP - General Internal Medicine 02/16/15 07/06/20 [facility], Pcp PCP - General Internal Medicine 07/07/20 12/10/20 Mattie Louise MD PCP - General Internal Medicine 12/11/20 03/02/21 [facility], Pcp PCP - General Internal Medicine 03/03/21 documented as of this encounter
--- OUTSIDE RECORDS SUMMARY | 2024-04-03 07:58 | XMS_ITS | Encounter Summary ---
Author Organization [facility] Address [address] [place] [address] Care Team Providers Care Graduate Student Name Role Phone Saman Gomes MD Primary Care Provider Unavail able Mattie Louise MD Primary Care Provider Unavaila [facility], Pcp Primary Care Provider Unavailabl e Mattie Louise MD [facility] Primary Care Provider Unavailabl e Encounter Details Date Type Department Care Team Description 09/24/2014 Pt. Non Urgent Medic al Question Medicine/Pediatrics - [address] [phone] Saman Gomes MD Social History Tobacco Use Types Packs/Day Years Used Date Smoking Tobacco: Never Smokeless Tobacco: Never Alcohol Use Standard Drinks/Week Comments No 0 (1 standard drink = 0.6 oz pur e alcohol) Sex Assigned at Date Recorded Not on file documented as of this encounter Progress Notes * Joy Tong Rn - 09/24/2014 8:58 AM EDTFrom: Brie Curry To: Saman Gomes MD Sent: 09/24/2014 8:52 AM EDT Subject: Anxiety/Lorazepam Hi Dr. Gomes, These past couple of days have been very stressful and last night and the night before I needed to take a lorazepam as I was extremely anxious before bedtime for past two nights. Today, I may need totake an extra one as well, depending on how the day goes. Lots going on! I wanted to notify you immediately because I receive 28 tablets/28 days. How does this change things for this month? Lorazepamis used to treat my anxiety and this anxiety attack was unexpected. Thank you. Brie (If you have any questions please call [phone]) documented in this encounter Plan of Treatment Not on file documented as of this encounter Visit Diagnoses Not on filedocumented in this encounter Care Teams Graduate Student Relationship Specialty Start Date End Date Saman Gomes MD PCP - General Internal Medicine 03/06/14 02/15/15 Mattie Louise MD PCP - General Internal Medicine 02/16/15 07/06/20 Community, Pcp PCP - General Internal Medicine 07/07/20 12/10/20 Mattie Louise MD PCP - General Internal Medicine 12/11/20 03/02/21 Community, Pcp PCP - General Internal Medicine 03/03/21 documented as of this encounter
--- OUTSIDE RECORDS SUMMARY | 2024-04-03 07:58 | XMS_ITS | Encounter Summary ---
Author Organization [facility] Address [address] [place] [address] Care Team Providers Care Sheet Metal Production Worker Name Role Phone Saman Gomes MD Primary Care Provider Unavail able Mattie Louise MD Primary Care Provider Unavaila ble [facility], Pcp Primary Care Provider Unavailabl e Mattie Louise MD Primary Care Provider Unavaila [facility], Pcp Primary Care Provider Unavailabl e Encounter Details Date Type Department Care Team Description 10/08/2014 CLINICAL NUTRITIONIST/[place] Report Medical Records [address] [place] [address] Abstract, Provider Social History Tobacco Use Types [...] on filedocumented in this encounter Care Teams Sheet Metal Production Worker Relationship Specialty Start Date End Date Saman [...]
--- OUTSIDE RECORDS SUMMARY | 2024-04-03 07:58 | XMS_ITS | Encounter Summary ---
Author Organization [facility] Address [address] [place] [address] Care Team Providers Care Superintendent Of Generation Name Role Phone Mattie Louise MD Primary Care Provider Unavaila [facility], Pcp Primary Care Provider Unavailabl e Mattie Louise MD Primary Care Provider Unavaila [facility], Pcp Primary Care Provider Unavailabl e Encounter Details Date Type Department Care Team Description 04/08/2015 Controlled Substance Contract with Plan Medical Records [address] [place] [address] Abstract, Provider Social History Tobacco Use Types [...] on filedocumented in this encounter Care Teams Superintendent Of Generation Relationship Specialty Start Date End Date Mattie Louise MD PCP - General Internal Medicine 02/16/15 07/06/20 Community, Pcp PCP - General Internal Medicine 07/07/20 12/10/20 Mattie Louise MD PCP - General Internal Medicine 12/11/20 03/02/21 Community, Pcp PCP - General Internal Medicine 03/03/21 documented as of this encounter
--- OUTSIDE RECORDS SUMMARY | 2024-04-03 07:58 | XMS_ITS | Encounter Summary ---
Author Organization [facility] Address [address] [place] [address] Care Team Providers Care Grain Oilseed Or Pasture Farm Worker Name Role Phone Mattie Louise MD Primary Care Provider Unavaila [facility], Pcp Primary Care Provider Unavailabl e Mattie Louise MD Primary Care Provider [facility], Pcp Primary Care Provider Unavailabl e Encounter Details Date Type Department Care Team Description 10/27/2015 Orders Only Medicine/Pediatrics - [address] [address] Carlos Cordero PA-C Social History Tobacco Use [...] on filedocumented in this encounter Care Teams Grain Oilseed Or Pasture Farm Worker Relationship Specialty Start Date End Date Mattie Louise MD PCP - General Internal Medicine 02/16/15 07/06/20 Community, Pcp PCP - General Internal Medicine 07/07/20 12/10/20 Mattie Louise MD PCP - General Internal Medicine 12/11/20 03/02/21 Community, Pcp PCP - General Internal Medicine 03/03/21 documented as of this encounter
--- OUTSIDE RECORDS SUMMARY | 2024-04-03 07:58 | XMS_ITS | Encounter Summary ---
Author Organization [facility] Address [address] [place] [address] Care Team Providers Care Hydrogen Plant Operations Manager Name Role Phone Mattie Louise MD Primary Care Provider Unavaila [facility], Pcp Primary Care Provider Unavailabl e Mattie Louise MD Primary Care Provider Unavaila [facility], Pcp Primary Care Provider Unavailabl e Encounter Details Date Type Department Care Team Description 05/23/2016 Orders Only Medicine/Pediatrics - [address] [phone] Bella Valderrama PA-C Leukopenia, unspecified type (Primary Dx) Social History Tobacco Use Types Packs/Day Years Used Date Smoking Tobacco: Never Smokeless Tobacco: Never Alcohol Use Standard Drinks/Week Comments No 0 (1 standard drink = 0.6 oz pur e alcohol) Sex Assigned at Date Recorded Not on file documented as of this encounter Plan of Treatment Not on file documented as of this encounter Results * DIFFERENTIAL WBC COUNT (08/30/2016 9:33 AM EDT) NEUTROPHIL 44 41 - 85 % 08/30/2016 1:15 PM EDT [facility] LYMPHOCYTE 42 15 - 48 % 08/30/2016 1:15 PM EDT [facility] ATYPICAL LYMPHOCYTE 3 1.8 - 4.6 % 08/30/2016 1:15 PM EDT [facility] MONOCYTE 6 0 - 12 % 08/30/2016 1:15 PM EDT [facility] EOSINOPHIL 5 0 - 5 % 08/30/2016 1:15 PM EDT [facility] RBC MORPHOLOGY NORMAL 08/30/2016 1:15 PM EDT [facility] BASOPHIL 0 0 - 2 % 08/30/2016 1:22 PM EDT [facility] 08/30/2016 9:33 AM EDT 08/30/2016 9:33 AM EDT Bella STALLINGS-C LAB Performing Organization Address City/[facility]/ZIP Co de Phone Number [facility] * (ABNORMAL) AUTOMATED HEMOGRAM PLATELET COUNT (08/30/2016 9:33 AM EDT) WBC 4.2(L) 4.8 - 10.8 x10-3 08/30/2016 12:29 PM EDT [facility] RBC 4.6 3.8 - 4.8 x10-6 08/30/2016 12:29 PM EDT [facility] HGB 13.1 11.5 - 16.0 g/dl 08/30/2016 12:29 PM EDT [facility] HCT 39.7 35 - 47 % 08/30/2016 12:29 PM EDT [facility] MCV 86.3 79 - 98 fl 08/30/2016 12:29 PM EDT [facility] MCH 28.5 27 - 32 pg 08/30/2016 12:29 PM EDT [facility] MCHC 33.0 32 - 37 g/dl 08/30/2016 12:29 PM EDT [facility] RDW 13.6 11 - 15 % 08/30/2016 12:29 PM EDT [facility] PLT COUNT 207 130 - 400 x10-3 08/30/2016 12:29 PM EDT [facility] MEAN PLATELET VOLUME 10.8 7 - 11 fl 08/30/2016 12:29 PM EDT [facility] 08/30/2016 9:33 AM EDT 08/30/2016 9:33 AM EDT Bella Valderrama PA-C LAB Performing Organization Address City/[facility]/ZIP Co de Phone Number [facility] [address] [place] [address] documented in this encounter Visit Diagnoses Diagnosis Leukopenia, unspecified type- Primary documented in this encounter Care Teams Hydrogen Plant Operations Manager Relationship Specialty Start Date End Date Mattie Louise MD PCP - General Internal Medicine 02/16/15 07/06/20 Community, Pcp PCP - General Internal Medicine 07/07/20 12/10/20 Mattie Louise MD PCP - General Internal Medicine 12/11/20 03/02/21 Community, Pcp PCP - General Internal Medicine 03/03/21 documented as of this encounter
--- OUTSIDE RECORDS SUMMARY | 2024-04-03 07:59 | XMS_ITS | Encounter Summary ---
Author Organization [facility] Address [address] [place] [address] Care Team Providers Care Prosthetic Aides Teacher Name Role Phone Mattie Louise MD Primary Care Provider Unavaila [facility], Pcp Primary Care Provider Unavailabl e Mattie Louise MD [facility], [facility] Primary Care Provider Unavailabl e Encounter Details Date Type Department Care Team Description 07/06/2018 PNO Controlled Substance Contract Medical Records [address] [place] [address] Abstract, Provider Social History Tobacco Use Types [...] on filedocumented in this encounter Care Teams Prosthetic Aides Teacher Relationship Specialty Start Date End Date Mattie Louise MD PCP - General Internal Medicine 02/16/15 07/06/20 Community, Pcp PCP - General Internal Medicine 07/07/20 12/10/20 Mattie Louise MD PCP - General Internal Medicine 12/11/20 03/02/21 Community, Pcp PCP - General Internal Medicine 03/03/21 documented as of this encounter
--- OUTSIDE RECORDS SUMMARY | 2024-04-03 07:59 | XMS_ITS | Encounter Summary ---
Author Organization [facility] Address [address] [place] [address] Care Team Providers Care Counting Machine Operator Name Role Phone Mattie Louise MD Primary Care Provider Unavaila [facility], Pcp Primary Care Provider Unavailabl e Mattie Louise MD Primary Care Provider [facility], Pcp Primary Care Provider Unavailabl e Encounter Details Date Type Department Care Team Description 12/14/2015 Controlled Substance Plan Medical Records [address] [place] [address] Abstract, Provider Social History Tobacco Use Types [...] on filedocumented in this encounter Care Teams Counting Machine Operator Relationship Specialty Start Date End Date Mattie Louise MD PCP - General Internal Medicine 02/16/15 07/06/20 Community, Pcp PCP - General Internal Medicine 07/07/20 12/10/20 Mattie Louise MD PCP - General Internal Medicine 12/11/20 03/02/21 Community, Pcp PCP - General Internal Medicine 03/03/21 documented as of this encounter
--- OUTSIDE RECORDS SUMMARY | 2024-04-03 07:59 | XMS_ITS | Encounter Summary ---
Author Organization [facility] Address [address] [place] [address] Care Team Providers Care Mill Recorder Name Role Phone Odell Gomes MD Primary Care Provider Unavailab Saman Malik MD Primary Care Provider Unavail able Mattie Louise MD Primary Care Provider Unavaila [facility], Pcp Primary Care Provider Unavailabl e Mattie Louise MD Primary Care Provider [facility], Pcp Primary Care Provider Unavailabl e Reason for Visit * Reason Comments E-prescribe Rx Request Encounter Details Date Type Department Care Team Description 12/01/2013 Refill Medicine/Pediatrics - [address] [address] Edith Frazier FNP E-prescribe Rx Request Social History Tobacco Use Types Packs/Day Years Used Date Smoking Tobacco: Never Smokeless Tobacco: Never Alcohol Use Standard Drinks/Week Comments No 0 (1 standard drink = 0.6 oz pur e alcohol) Sex Assigned at Date Recorded Not on file documented as of this encounter Miscellaneous Notes * Telephone Encounter - Dory Mills M.A. - 12/02/2013 10:[address] Gomes - please review. Last ov for meds 08/23/13 - due 02/2014. Per below, message left for pt to call. Per last Endo note, not taking thyroid replacement. Component Value Date TSH 4.06 11/19/2013 T4 0.88 Component Value Date NA 140 08/22/2013 K 4.0 08/22/2013 CO2 24.2 08/22/2013 CL 106 08/22/2013 BUN 10 08/22/2013 CREAT 0.8 08/22/2013 GLU 92 08/22/2013 ALB 4.3 08/22/2013 SGOT 24 08/22/2013 SGPT 18 08/22/2013 TBILI 0.3 08/22/2013 ALKPHOS 85 08/22/2013 TP 7.0 08/22/2013 CA 8.9 08/22/2013 GFR > 60 08/22/2013 * Telephone Encounter - Jessica Tanya - 12/02/2013 9:16 AM EDT Patient would like script to be: E-PRESCRIBED/FAXED TO PHARMACY WHEN WAS THE PATIENT'S LAST APPOINTMENT IN ADULT MEDICINE? 10/21/13 WHEN WAS THE LAST TIME THE PATIENT SAW THEIR PCP? 08/23/13 Does patient have an upcoming appointment? [facility] to refill request. Appt due (THE MEDICATION REQUESTED IS ON THE MED LIST ABOVE) All of the medications requested were on the CURRENT MEDS list Did you check the Pharmacy information above?: YES Patient wants: 90 -day supply Is this a mail order prescription request ? NO Patients current insurance carrier is: Payor: [facility] / Plan: PPO $20 [place] [id number] / Product Type: PPO [id number] documented in this encounter Plan of Treatment Not on file documented as of this encounter Visit Diagnoses Not on filedocumented in this encounter Care Teams Mill Recorder Relationship Specialty Start Date End Date Odell [...]
--- OUTSIDE RECORDS SUMMARY | 2024-04-03 07:59 | XMS_ITS | Encounter Summary ---
Author Organization [facility] Address [address] [place] [address] Care Team Providers Care Service Support Representative Name Role Phone Odell Gomes MD Primary Care Provider Kiraab Saman Malik MD Primary Care Provider Unavail able Mattie Louise MD Primary Care Provider Unavaila [facility], Pcp Primary Care Provider Unavailabl e Mattie Louise MD Primary Care Provider [facility], Pcp Primary Care Provider Unavailabl e Encounter Details Date Type Department Care Team Description 08/29/2013 Controlled Substance Contract with Plan Medical Records [address] [place] [address] Abstract, Provider Social History Tobacco Use Types [...] on filedocumented in this encounter Care Teams Service Support Representative Relationship Specialty Start Date End Date Odell [...]
--- OUTSIDE RECORDS SUMMARY | 2024-04-03 07:59 | XMS_ITS | Encounter Summary ---
Author Organization [facility] Address [address] [place] [address] Care Team Providers Care Environmental Health And Safety Intern Name Role Phone Mattie Louise MD Primary Care Provider Unavaila [facility], Pcp Primary Care Provider Unavailabl e Mattie Louise MD Primary Care Provider Unavaila [facility], Pcp Primary Care Provider Unavailabl e Encounter Details Date Type Department Care Team Description 03/04/2016 [facility] Medical Records [address] [place] [address] Abstract, Provider Social History Tobacco Use Types [...] on filedocumented in this encounter Care Teams Environmental Health And Safety Intern Relationship Specialty Start Date End Date Mattie Louise MD PCP - General Internal Medicine 02/16/15 07/06/20 Community, Pcp PCP - General Internal Medicine 07/07/20 12/10/20 Mattie Louise MD PCP - General Internal Medicine 12/11/20 03/02/21 Community, Pcp PCP - General Internal Medicine 03/03/21 documented as of this encounter
--- OUTSIDE RECORDS SUMMARY | 2024-04-03 07:59 | XMS_ITS | Encounter Summary ---
Author Organization [facility] Address [address] [place] [address] Care Team Providers Care Lining Marker Name Role Phone Mattie Louise MD Primary Care Provider [facility], Pcp Primary Care Provider Unavailabl e Mattie Louise MD Primary Care Provider [facility], Pcp Primary Care Provider Unavailabl e Encounter Details Date Type Department Care Team Description 01/07/2016 Refill POCKET SECRETARY ASSEMBLER - [address] [address] Clare Nick MD Social History Tobacco Use Types Packs/Day Years Used Date Smoking Tobacco: Never Smokeless Tobacco: Never Alcohol Use Standard Drinks/Week Comments No 0 (1 standard drink = 0.6 oz pur e alcohol) Sex Assigned at Date Recorded Not on file documented as of this encounter Miscellaneous Notes * Telephone Encounter - Aubree Helm R.N. - 01/07/2016 9:30 AM EDTFrom: Brie Curry To: Clare Nick MD Sent: 01/07/2016 9:04 AM EDT Subject: Medication Renewal Request Original authorizing provider: MD Brie Reyes would like a refill of the following medications: clotrimazole-betamethasone (LOTRISONE) cream [Clare Nick MD] Preferred pharmacy: [id number] [place] [address] Comment: please refill. thank you! Medication renewals requested in this message routed to other providers: lorazepam (ATIVAN) 1 MG tablet [Mattie Raymundo MD] documented in this encounter Plan of Treatment Not on file documented as of this encounter Visit Diagnoses Not on filedocumented in this encounter Care Teams Lining Marker Relationship Specialty Start Date End Date Mattie Louise MD PCP - General Internal Medicine 02/16/15 07/06/20 Community, Pcp PCP - General Internal Medicine 07/07/20 12/10/20 Mattie Louise MD PCP - General Internal Medicine 12/11/20 03/02/21 Community, Pcp PCP - General Internal Medicine 03/03/21 documented as of this encounter
--- OUTSIDE RECORDS SUMMARY | 2024-04-03 07:59 | XMS_ITS | Encounter Summary ---
Author Organization [facility] Address [address] [place] [address] Care Team Providers Care Sugar Presser Name Role Phone Mattie Louise MD [facility], Pcp Primary Care Provider Unavailabl e Mattie Louise MD Primary Care Provider [facility], Pcp Primary Care Provider Unavailabl e Reason for Referral * Non CHALINO (Routine) - Unable to reach/declined Specialty Diagnoses / Procedures Referred By Contbrain t Referred To Contact Endocrinology Procedures REFERRAL TO ENDOCRINOLOGY Bella Valderrama PA-C [address] [place] [phone] Harinder Eisenberg MD Referral ID Status Reason Start Date Expiration Date V isits Requested Visits Authorized [id number] 10/17-2 Unable to reach/decli luis alfredo 10/01/2018 10/01/2019 12 12 Encounter Details Date Type Department Care Team Description 10/01/2018 Orders Only Medicine/Pediatrics - [address] [address] Bella Valderrama PA-C Social History Tobacco Use [...] on filedocumented in this encounter Care Teams Sugar Presser Relationship Specialty Start Date End Date Mattie Louise MD PCP - General Internal Medicine 02/16/15 07/06/20 Community, Pcp PCP - General Internal Medicine 07/07/20 12/10/20 Mattie Louise MD PCP - General Internal Medicine 12/11/20 03/02/21 Community, Pcp PCP - General Internal Medicine 03/03/21 documented as of this encounter
--- OUTSIDE RECORDS SUMMARY | 2024-04-03 07:59 | XMS_ITS | Encounter Summary ---
Author Organization [facility] Address [address] [place] [address] Care Team Providers Care Mill Machinist Name Role Phone Mattie Louise MD Primary Care Provider [facility], Pcp Primary Care Provider Unavailabl e Mattie Louise MD Primary Care Provider [facility], Pcp Primary Care Provider Unavailabl e Encounter Details Date Type Department Care Team Description 03/21/2016 Pt. Non Urgent Medical Question Medicine/Pediatrics - [address] [phone] Mattie Louise MD Social History Tobacco Use Types Packs/Day Years Used Date Smoking Tobacco: Never Smokeless Tobacco: Never Alcohol Use Standard Drinks/Week Comments No 0 (1 standard drink = 0.6 oz pur e alcohol) Sex Assigned at Date Recorded Not on file documented as of this encounter Progress Notes * Daniela Trevino L.P.N. - 03/22/2016 9:28 AM ESTFrom: Brie Curry To: Mattie Raymundo MD Sent: 03/21/2016 6:38 PM EST Subject: B12 Dear Dr. Raymundo, The last time I called to make an appt. to get my monthly B12 shot, I got an appointment 3 weeks later. I would like to have it this week before [facility] year begins [facility] [employer]. Can you order a B12 shot this week, please? Thank you so much! CordiallyBrie documented in this encounter Plan of Treatment Not on file documented as of this encounter Visit Diagnoses Not on filedocumented in this encounter Care Teams Mill Machinist Relationship Specialty Start Date End Date Mattie Louise MD PCP - General Internal Medicine 02/16/15 07/06/20 Community, Pcp PCP - General Internal Medicine 07/07/20 12/10/20 Mattie Louise MD PCP - General Internal Medicine 12/11/20 03/02/21 Community, Pcp PCP - General Internal Medicine 03/03/21 documented as of this encounter
--- OUTSIDE RECORDS SUMMARY | 2024-04-03 07:59 | XMS_ITS | Encounter Summary ---
Author Organization [facility] Address [address] [place] [address] Care Team Providers Care Accounts Payable Associate Name Role Phone Odell Gomes MD Primary Care Provider Saman Villarreal MD Primary Care Provider Unavail able Mattie Louise MD Primary Care Provider Unavaila [facility], Pcp Primary Care Provider Unavailabl e Mattie Louise MD Primary Care Provider [facility], Pcp Primary Care Provider Unavailabl e Encounter Details Date Type Department Care Team Description 09/20/2013 Pt. Non Urgent Medic al Question Medicine/Pediatrics - [address] [phone] Odell Gomes MD Social History Tobacco Use Types Packs/Day Years Used Date Smoking Tobacco: Never Smokeless Tobacco: Never Alcohol Use Standard Drinks/Week Comments No 0 (1 standard drink = 0.6 oz pur e alcohol) Sex Assigned at Date Recorded Not on file documented as of this encounter Progress Notes * Donna Nicole L.P.N. - 09/20/2013 2:35 PM EDTFrom: Brie Curry To: Odell Gomes MD Sent: 09/20/2013 2:14 PM EDT Subject: test results Hello, I would love to get my test results from the ultrasound before doctor leaves for the weekend. Thank you so so much. Brie Curry my cell [phone] documented in this encounter Plan of Treatment Not on file documented as of this encounter Visit Diagnoses Not on filedocumented in this encounter Care Teams Accounts Payable Associate Relationship Specialty Start Date End Date Odell [...]
--- NOTE | 2024-04-03 08:30 | PM.PROC ---
Brief Operative Note Date of procedure: 04/03/24 Pre-op diagnosis: left mid pole 2.3 cm thyroid nodule FNA biopsy Post-op diagnosis: same Procedure: THYROID FINE NEEDLE ASPIRATION PROCEDURE NOTE ? PROCEDURE PERFORMED: Ultrasound-guided FNA of thyroid nodule ? OPERATORS: Dr. Karen Cosby ? INDICATION: left mid pole 2.3 cm thyroid nodule ; FNA performed to assess for malignancy ? DESCRIPTION OF PROCEDURE: The indications for FNA (to assess for malignancy) were reviewed with the patient in detail. Potential complications (e.g., bleeding, infection, damage to local structures, absence of clear diagnosis after FNA) were reviewed. Alternatives to FNA including conservative observation or surgery were described. The patient understood and agreed to proceed. This was documented by the signing of the written informed consent form. A time-out was performed to confirm the patient's identity and the site of planned FNA. The nodule of interest was identified using ultrasound (14 MHz linear array probe). The site of FNA was then draped in the usual fashion and carefully cleaned and prepared using alcohol swabs. The skin at the previously-identified site of needle insertion was iced and sprayed with numbing spray. Under ultrasound guidance, _5_ passes were performed using a 1.5-inch, 25-gauge needle, and sample was obtained via capillary action. The needle tip was clearly visualized to be within the nodule at the time of sampling for _4_ of _5_ passes The patient tolerated the procedure well. There were no immediate complications. A small adhesive bandage was applied, and the patient was advised to take acetaminophen (rather than NSAIDs) for any discomfort and to report any signs of inflammation/infection or marked swelling. IMPRESSION: Technically successful ultrasound-guided fine needle aspiration of left mid pole 2.3 cm thyroid nodule. PLAN: The patient was advised that I will provide follow-up regarding the cytology result and any subsequent plans. Karen Cosby MD Endocrinology Attending Condition: stable Disposition: same day
== END 2024-04-03 07:57 | disposition home or self-care (01) ==
LOC: HO.US 07:56
PROVIDERS: PCP Internal Medicine; Visit Provider Student in an Organized Health Care Education/Training Program
DX: E04.2 Nontoxic multinodular goiter (principal)
CPT/HCPCS: 10005; 88173; 88305

== ENCOUNTER → 2024-04-03 07:56 | Outpatient (BNV) | payer OTHER, SELFPAY | PROVIDERS: PCP Internal Medicine; Visit Provider Student in an Organized Health Care Education/Training Program | DX: E04.1 Nontoxic single thyroid nodule (principal) | CPT/HCPCS: 10005 ==

== ENCOUNTER 2024-04-12 10:06 | Outpatient (REF) | payer OTHER, SELFPAY ==
--- OUTSIDE RECORDS SUMMARY | 2024-04-12 10:54 | XMS_ITS | Encounter Summary ---
Author Organization [facility] Address [address] [place] [address] Care Team Providers Care Clockmaker Name Role Phone Mattie Raymundo MD Primary Care Provider [phone] Encounter Details Date Type Department Care Team ([facility] Contact Info) Description 04/08/2024 Refill [facility] Heart & Vascular [place] at [facility] - Cardiology [address] [place] [address] Kartik Freitas PA-C [address] [place] [id number] Social History Tobacco Use Types Packs/Day Years Used Date Smoking Tobacco: Never Assessed Sex and Gender Information Value Date Recorded Sex Assigned at Female 10/18/2023 10:55 AM EDT Gender Identity Female 10/18/2023 10:55 AM EDT Sexual Orientation Heterosexual (straight) 10/17 10:55 AM EDT documented as of this encounter Miscellaneous Notes * Telephone Encounter - Peterson Hogan RN - 04/08/2024 9:34 AM EST Refill for Propranolol 10 mg tabs requested. Chart reviewed and medication noted. Last visit 01/19/2024 Next visit 05/10/2024 90 day prescription with 3 refills sent documented in this encounter Plan of Treatment Upcoming Encounters Date Type Department Care Team (Late st Contact Info) Description 05/10/2024 10:30 AM EST Appointment [facility] Heart & Vascular [place] at [facility] - Cardiology [address] [place] [address] Kartik Freitas PA-C [address] [place] [address] documented as of this encounter Visit Diagnoses Diagnosis POTS (postural orthostatic tachycardia syndrome) Unspecified tachycardia documented in this encounter Care Teams Clockmaker Relationship Specialty Start Date End Date Mattie Raymundo MD [address] [place] [phone] PCP - General Internal Medicine 10/18/23 documented as of this encounter
--- OUTSIDE RECORDS SUMMARY | 2024-04-12 10:54 | XMS_ITS | Clinical Summary ---
Author Organization [facility] Address [address] [place] [address] Care Team Providers Care Rail Express Clerk Name Role Phone Mattie Raymundo MD Primary Care Provider [phone] Allergies Active Allergy Reactions Criticality Noted Date Comments Prochlorperazine Anaphylaxis High 11/14/2023 Medications Medication Sig Dispensed Refills Start Date End Date Status buPROPion (WELLBUTRIN XL) 150 MG 24 hr tablet Take 1 tablet (150 mg total) by mouth every morning. 10/21/2023 Active butalbital-acetami nophen-caffeine (FioriCET, ESGIC) 50-325-40 mg tablet Take 1 [...] topically daily. Active propranolol (INDERAL) 10 MG tabletIndications: POTS (postural orthostatic tachycardia syndrome) Take 1 tablet (10 mg total) by mouth 2 (two) times a day. Upon waking and then after 8 hours 60 tablet 5 04/08/2024 10/05/2024 Active propranolol (INDERAL) 10 MG tabletIndications: POTS (postural orthostatic tachycardia syndrome) Take 1 tablet (10 mg total) by mouth 2 (two) times a day. Upon waking and then after 8 hours 60 tablet 5 11/14/2023 04/08/2024 Discontinue d(Reorder) Encounters Date Type Department Care Team Description 04/08/2024 Refill [facility] Heart & Vascular [place] at [address] [phone] Kartik Freitas PA-C 01/19/2024 10:13 AM EST - 01/19/2024 11:59 PM EST Hospital Encounter [facility] Heart & Vascular [place] at [address] [phone] Kartik Freitas PA-C Discharge Disposition: Home or [...] Info) Description 05/10/2024 10:30 AM EST Appointment [facility] Heart & Vascular [place] at [facility] - Cardiology [address] [place] [address] Kartik Freitas PA-C [address] [place] [address] Health Maintenance Due Date Last Done Comments [...] Influenza Vaccine 10/05/2023 COVID-19 Vaccine ( - 2023-25 season) 2023 Care Teams Rail Express Clerk Relationship Specialty Start Date End Date Mattie Raymundo MD [address] [place] [phone] PCP - General Internal Medicine 10/18/23
[2024-04-12 12:02] LABS: Appearance Urine Clear; Color Urine Dark Yellow; Glucose Urine UA Negative (Negative); Leukocyte Esterase Urine Negative (Negative); Nitrite Urine Negative (Negative); PH 5.5 (5.0-9.0); Specific Gravity - Urine >= 1.030 (1.005-1.025); Urine Blood Negative (Negative); Urine Ketones Trace mg/dL (Negative); Urine Protein Negative (Neg-Trace)
[2024-04-12 12:16] LABS: Alanine Aminotransferase 9 U/L (0-31); Alkaline Phosphatase 87 U/L (39-117); Amylase 69 U/L (28-100); Anion Gap 8 (12-20); Aspartate Amino Transferase 18 U/L (5-31); Bilirubin Total 0.3 mg/dL (0.0-1.0); Blood Urea Nitrogen 13 mg/dL (9-16); Carbon Dioxide 27 mmol/L (22-29); Chloride 109 mmol/L (96-108); Estimated Glomerular Filt Rate > 60; Glucose Random 99 mg/dL (60-115); Lipase 32 U/L (8-78); Potassium 4.1 mmol/L (3.3-5.1); Sodium 140 mmol/L (135-145); Total Protein 7.2 g/dL (6.5-8.0)
[2024-04-12 12:17] LABS: Monotest Negative (Negative)
[2024-04-12 12:42] LABS: Erythrocyte Sedimentation Rate 12 MM/HR (0-20)
[2024-04-15 18:24] LABS: Babesia IgG <1:64 titer (<1:64); Babesia IgM <1:20 titer (<1:20)
== END 2024-04-12 10:07 | disposition home or self-care (01) ==
LOC: HO.WFDLDS 10:06
PROVIDERS: Visit Provider Internal Medicine
DX: M35.3 Polymyalgia rheumatica (principal); R14.0 Abdominal distension (gaseous); R10.9 Unspecified abdominal pain
CPT/HCPCS: 36415; 80053; 81003; 82150; 82550; 83690; 85652; 86141; 86308; 86753; 87086

== ENCOUNTER 2024-04-17 13:46 | Outpatient (AMB) | payer OTHER, SELFPAY ==
[2024-04-17 13:51] VITALS: BP 140/78; PULSE 78; O2SAT 94; BMI 27.6
--- NOTE | 2024-04-17 13:51 | A.OFFVIS_ITS ---
Vital Signs 3 04/17/24 13:51 Height 5 ft 7 in Weight 175 lb 14.862 oz BMI 27.6 BP 140/78 H Blood Pressure Location Lt brachial Position Sitting Pulse 78 Pulse Source Pulse Oximeter Pulse Oximetry (%) 94 Oxygen Delivery Method Room Air Intake Visit Reasons: Biopsy f/u Intake Note: Patient present for biopsy results. Adjunct Teacher Required: No Accompanied by: Spouse Allergies prochlorperazine [From Compazine] Allergy (Unknown, Verified 04/17/24 13:55) Throat closes HPI Comments Details: 58-year-old female coming in today for follow up of multinodular goiter. She is here today to discuss the results of her biopsy of the left 2.3 cm dominant nodule. HPI from prior visit Hypothyrodism was diagnosed 2016 and fabienne was on levothyroxine 75 mcg daily for a few years but was not very regular with it. She has now been off it for at least a year. blood work from 07/27 showed TSH high at 7.8 and normal free T4 , however she remained off the medication and then labs from 11/30/23 were normal TSH at 3.73. Diagnosed with thyroid nodules in 2013 Was following at [place] underwent FNA 2013 in [place] she thinks , was benign not sure how many nodules or which side. Ultrasound from September 2023, I reviewed the images myself which show multiple bilateral thyroid nodules. She has a left dominant 2.3 cm solid hypoechoic nodule, TR 4 category, per DAVID this is intermediate suspicion nodule with a 10- 20% chance of malignancy. Meets criteria for FNA. On the right side she has a dominant 1.1 cm right lower pole nodule which is reported as taller than wide and lobulated making it a TR 5 category nodule, however when I look at the images myself, it is not very distinguished nodule, almost appears as if she has a pseudonodule. Given her history of Jelly's/hypothyroidism, she might have pseudonodules. I would like to hold off on biopsy of this nodule for now, we will look at it with the ultrasound briefly when I biopsy her left dominant nodule. But for now we will plan to follow this with a 6 month repeat ultrasound. Another subcentimeter right lower pole nodule 0.9 cm in maximum dimension does not meet criteria for biopsy, solid, isoechoic, TR 3 nodule, low suspicion category per DAVID guidelines with a 5-10% chance malignancy. Patient currently denies heat or cold intolerance, diarrhea or constipation, hair loss, palpitation, anxiety, weight changes, mood changes, low energy, changes in appearance of eyes or vision changes, tremors, increased diaphoresis or dry skin. Post menopausal since 49. Was recenlty diagnosed with POTs , was having palpitations, tachycardria before but since starting propranolol and other measures for POTS , all of this has resolved. Still reports fatigue. Not worsening. Gained 6 lbs over the summer. Patient denies any difficulty swallowing with food , but just some trouble swallowing with big pills , pain on swallowing or voice changes or difficulty breathing. Patient denies any history of childhood neck radiation. Denies having ever used lithium, amiodarone or biotin supplements. Patient denies any family history of thyroid cancer or thyroid disease. Daughter has thyroid nodules and Hashimotos. Underwent FNA biopsy of the left dominant 2.3 cm nodule on 12/27/2023, which came back as nondiagnostic [place] category 1. labs 12/27/2023 showed normal thyroid function. Interval history Repeat FNA of the left dominant 2.3 cm nodule on 04/03/2024 came back as suspicious for follicular neoplasm [place] category 4, however unfortunately Afirma came back as no results due to low RNA yield. Patient is also today describing to me that over the past few months she is also having more trouble swallowing pills as well as food. She has the last 1 to finish her food. She is also complaining of some voice raspiness. She is also having more heat intolerance, fatigue. 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 [employer] Review of systems Constitutional: no fevers, chills or weight loss HEENT: no changes in vision Cardiac:palpitation now resolved with propranolol Pulmonary: No SOB GI:No abdominal pain, no nausea or vomiting, no anorexia, no blood in stool : no burning micturition, dysuria or increase in urinary frequency Physical exam General: sitting comfortably in no acute distress HEENT: normocephalic/atraumatic, EOM intact, moist oral mucosa Neck: supple, symmetrical, palpable left-sided 2 cm nodule Cardiac: normal heart sounds Pulm: normal breath sounds B/L, no added breath sounds Abd: not distended, no tenderness Extremities: no edema, no signs of myxedema Neuro: AAO x3, Speech: normal, no facial droop, moving all 4 extremities Laboratory Tests 12/27/23 09:00 TSH 3.53 Free T4 0.74 Laboratory Tests 07/20/23 11/28/23 11:22 13:57 TSH 7.86 H 3.73 Free T4 0.74 Laboratory Tests 12/27/23 09:00 TSH 3.53 Free T4 0.74 EXAMINATION: US THYROID 09/2023 CLINICAL INFORMATION: Other specified hypothyroidism. COMPARISON: None available. TECHNIQUE: Linear transducer grayscale and color Doppler examination with attention to the region of the thyroid. FINDINGS: SIZE: Measurements of the thyroid lobes and nodules are given in sagittal, anteroposterior and transverse dimensions respectively. Right Thyroid Lobe: 5.5 x 1.8 x 1.4 cm, volume 7.2 mL. Parenchyma: The gland echotexture is heterogeneous. Thyroid vascularity is increased. Left Thyroid Lobe: 5.0 x 2.0 x 2.0 cm, volume 10.5 mL. Parenchyma: The gland echotexture is heterogeneous. Thyroid vascularity is increased. Isthmus: 0.3 cm in maximum AP dimension. Estimated total number of nodules greater than or equal to 1 cm: 1. Human Resource Consultant nodules are described as follows: 1. Location: Right lower pole. Size: 1.1 x 1.0 x 0.8 cm, volume 0.5 mL. Nodule characteristics: Composition: Solid (2). Echogenicity: Hyperechoic (1). Shape: Taller than wide (3). Margins: Lobulated (2). Echogenic Foci: None (0). ACR TI-RADS total points: 8. ACR TI-RADS category: 5. 2. Location: Right lower pole. Size: 0.9 x 0.8 x 0.9 cm, volume 0.3 mL. Nodule characteristics: Composition: Solid (2). Echogenicity: Isoechoic (1). Shape: Not taller than wide (0). Margins: Smooth (0). Echogenic Foci: None (0). ACR TI-RADS total points: 3. ACR TI-RADS category: 3. 3. Location: Left midpole. Size: 2.3 x 1.6 x 1.7 cm, volume 3.1 mL. Nodule characteristics: Composition: Solid (2). Echogenicity: Hypoechoic (2). Shape: Not taller than wide (0). Margins: Smooth (0). Echogenic Foci: None (0). ACR TI-RADS total points: 4. ACR TI-RADS category: 4. NODES: No lymphadenopathy is seen in the tissue surrounding the thyroid gland. US/US thyroid IMPRESSION: 1.1 cm right TR5 thyroid nodule meets criteria for biopsy. Fine-needle aspiration recommended if not already performed. 2.3 cm left TR4 thyroid nodule meets criteria for biopsy. Fine-needle aspiration recommended if not already performed. This study was presented to me on November 20, 2023 for interpretation. [facility] staff will provide results to referring provider at this time. Results provided to referring physician as requested. 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 Current occupational exposures/hazards: No Cognitive needs: No Hearing needs: No Vision needs: Yes (glasses) Physical Exam Vital Signs: Last Vital Signs Pulse 78 04/17/24 13:51 BP 140/78 H 04/17/24 13:51 Pulse Ox 94 04/17/24 13:51 Oxygen Delivery Method Room Air 04/17/24 13:51 BMI result Body Mass Index 27.6 Assessment & Plan Assessment & Plan (1) Thyroid nodule: Code(s): E04.1 - Nontoxic single thyroid nodule Category: Medical (2) Multinodular goiter: Code(s): E04.2 - Nontoxic multinodular goiter Category: Medical Plan: Patient with no personal history of head or neck radiation, with no family history of thyroid cancer who has a history multiple thyroid nodules diagnosed in 2013. She has had a biopsy of at least 1 of these nodules but she is not sure which side was done or what nodule was biopsied. She reports the result was benign. Ultrasound from September 2023, I reviewed the images myself which show multiple bilateral thyroid nodules. She has a left dominant 2.3 cm solid hypoechoic nodule, TR 4 category, per DAVID this is intermediate suspicion nodule with a 10- 20% chance of malignancy. Meets criteria for FNA. On the right side she has a dominant 1.1 cm right lower pole nodule which is reported as taller than wide and lobulated making it a TR 5 category nodule, however when I look at the images myself, it is not very distinguished nodule, almost appears as if she has a pseudonodule. Given her history of Jelly's/hypothyroidism, she might have pseudonodules. We decided to hold off on biopsy of this nodule for now, Another subcentimeter right lower pole nodule 0.9 cm in maximum dimension does not meet criteria for biopsy, solid, isoechoic, TR 3 nodule, low suspicion category per DAVID guidelines with a 5-10% chance malignancy. Underwent FNA biopsy of the left dominant 2.3 cm nodule on 12/27/2023, which came back as nondiagnostic [place] category 1. Repeat FNA of the left dominant 2.3 cm nodule on 04/03/2024 came back as suspicious for follicular neoplasm [place] category 4, however unfortunately Afirma came back as no results due to low RNA yield. I explained to the patient that [place] category 4 nodules have a 30% chance of malignancy, but a lot of these nodules can be benign follicular adenoma, NIFTP and ideally we would like to see molecular testing on this nodule. I discussed with her both options of doing another biopsy to sent for Afirma sampling versus proceeding with lobectomy and we discussed risks and benefit of both options. She is agreeable to do another biopsied to send for Afirma sampling but she would also like to meet with the endocrine surgeon for evaluation of lobectomy versus total thyroidectomy. Patient is also now complaining of some compressive symptoms, I told her that her nodule is relatively small and I can not be totally certain that the compressive symptoms are due to the nodule, however we are going to refer her to Endocrine surgery for evaluation of lobectomy/total thyroidectomy. She is also having more heat intolerance, fatigue. We will check thyroid function. Plan: -scheduled for repeat FNA of the left midlower lobe 2.3 cm nodule for Afirma sampling with follow up 1-2 weeks after biopsy to discuss results -ordered TSH, free T4 to be done now -referral placed to Dr. 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 She was irregular when she was taking it. However she has been off it for about a year, recently she was having some symptoms tachycardia, palpitations, fatigue, however was also diagnosed POTS recently in your symptoms are improved with propranolol. She had blood work done which showed elevated TSH of 7.8 in July 2023 when she was off levothyroxine however continued to remain off it and most recently blood work done in November and December 2023 showed normal TSH . Her weight has remained stable. Her palpitations/tachycardia has resolved she continues to have fatigue which she feels has worsened recently as well as some heat intolerance. We will repeat thyroid function testing. Plan: -repeat TSH, free T4 now -remain off levothyroxine for now Plan see above Orders: Orders 2 US biopsy thyroid Today E04.1 - Nontoxic single thyroid nodule Thyroid Stimulating Hormone Today E04.2 - Nontoxic multinodular goiter Free T4 (Free Thyroxine) Today E04.2 - Nontoxic multinodular goiter Referrals 2 General Surgery Referral E04.2 - Nontoxic multinodular goiter Patient Instructions: I spent 30 minutes in reviewing the record, seeing the patient and documenting in the medical record. 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
--- OUTSIDE RECORDS SUMMARY | 2024-04-17 15:09 | XMS_ITS | Encounter Summary ---
Author Organization [employer] [facility] Address [address] [place] [address] Care Team Providers Care Body Shop Floorperson Name Role Phone Saman Gomes MD Primary Care Provider Unavail able Mattie Louise MD Primary Care Provider Unavaila [facility], Pcp Primary Care Provider Unavailabl e Mattie Louise [facility] Provider Unavailabl e Encounter Details Date Type Department Care Team Description 09/24/2014 Pt. Non Urgent Medic al Question Medicine/Pediatrics - [address] [phone] Saman Gomes MD Social History Tobacco Use [...] (If you have any questions please call [phone]) documented in this encounter Plan of Treatment Not on file documented as of this encounter Visit Diagnoses Not on filedocumented in this encounter Care Teams Body Shop Floorperson Relationship Specialty Start Date End Date Saman [...]
--- OUTSIDE RECORDS SUMMARY | 2024-04-17 15:09 | XMS_ITS | Encounter Summary ---
Author Organization [facility] Address [address] [place] [address] Care Team Providers Care Java Developer Analyst Name Role Phone Mattie Louise MD Primary Care Provider [facility], Pcp Primary Care Provider Unavailabl Mattie Jacobs MD Primary Care Provider [facility], Pcp Primary Care Provider Unavailabl e Encounter Details Date Type Department Care Team Description 06/22/2015 Pt. Non Urgent Medic al Question Medicine/Pediatrics - [address] [phone] Carlso Cordero PA-C Social History Tobacco Use Types [...] on filedocumented in this encounter Care Teams Java Developer Analyst Relationship Specialty Start Date End Date Mattie Louise MD PCP - General Internal Medicine 02/16/15 07/06/20 [facility] Pcp PCP - General Internal Medicine 07/07/20 12/10/20 Mattie Louise MD PCP - General Internal Medicine 12/11/20 03/02/21 [facility], Pcp PCP - General Internal Medicine 03/03/21 documented as of this encounter
--- OUTSIDE RECORDS SUMMARY | 2024-04-17 15:09 | XMS_ITS | Encounter Summary ---
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[employer]/[facility] Report Medical Records [address] [place] [id number] Abstract, Provider Social History Tobacco Use Types [...] on filedocumented in this encounter Care Teams Property Controller Relationship Specialty Start Date End Date Odell Gomes MD PCP - General Internal Medicine 07/08/13 03/05/14 Saman Gomes MD PCP - General Internal Medicine 03/06/14 02/15/15 Mattie Louise MD PCP - General Internal Medicine 02/16/15 07/06/20 [facility], Pcp PCP - General Internal Medicine 07/07/20 12/10/20 Mattie Louise MD PCP - General Internal Medicine 12/11/20 03/02/21 [facility], Pcp PCP - General Internal Medicine 03/03/21 documented as of this encounter
--- OUTSIDE RECORDS SUMMARY | 2024-04-17 15:09 | XMS_ITS | Encounter Summary ---
Author Organization [facility] Address [address] [place] [address] Care Team Providers Care Jumpbasting Canvas Baster Name Role Phone Mattie Louise MD Primary Care Provider [facility], Pcp Primary Care Provider Unavailabl e Mattie Louise MD Primary Care Provider [facility], Pcp Primary Care Provider Unavailabl e Encounter Details Date Type Department Care Team Description 07/11/2017 Pt. Non Urgent Medical Question Medicine/Pediatrics - [address] [phone] Mattie Louise MD Social History Tobacco Use Types Packs/Day Years Used Date Smoking Tobacco: Never Smokeless Tobacco: Never Alcohol Use Standard Drinks/Week Comments No 0 (1 standard drink = 0.6 oz pur e alcohol) Sex Assigned at Date Recorded Not on file documented as of this encounter Progress Notes * Daniela Trevino L.P.N. - 07/11/2017 10:30 AM EDTFrom: Brie Curry To: Mattie Louise MD Sent: 07/11/2017 9:45 AM EDT Subject: Ongoing sinus infection Dear Dr. Jose Shah, So after the round of augmentin in May, my symptoms started to improve, but now have come back. Alot of gross discolored mucus is coming out and I think the infection is still there. I know it's not allergy stuff and I use the netipot and flonase, but with no relief. Do you think another round of thr augmentin would do the trick? Still not feeling too good and it's been over a month. Thank you! Brie documented in this encounter Plan of Treatment Not on file documented as of this encounter Visit Diagnoses Not on filedocumented in this encounter Care Teams Jumpbasting Canvas Baster Relationship Specialty Start Date End Date Mattie Louise MD PCP - General Internal Medicine 02/16/15 07/06/20 Community, Pcp PCP - General Internal Medicine 07/07/20 12/10/20 Mattie Louise MD PCP - General Internal Medicine 12/11/20 03/02/21 Community, Pcp PCP - General Internal Medicine 03/03/21 documented as of this encounter
--- OUTSIDE RECORDS SUMMARY | 2024-04-17 15:09 | XMS_ITS | Encounter Summary ---
Author Organization [facility] Address [address] [place] [address] Care Team Providers Care Sanitary Napkin Machine Tender Name Role Phone Odell Gomes MD Primary Care Provider Saman Villarreal MD Primary Care Provider Unavail able Mattie Louise MD Primary Care Provider Unavaila [facility], Pcp Primary Care Provider Unavailabl e Mattie Louise MD Primary Care Provider [facility], Pcp Primary Care Provider Unavailabl e Encounter Details Date Type Department Care Team Description 01/27/2014 Pt. Non Urgent Medic al Question Medicine/Pediatrics - [address] [phone] Odell Gomes MD Social History Tobacco Use [...] do not have her email information on [employer], so I thought itwas best to contact [...] on filedocumented in this encounter Care Teams Sanitary Napkin Machine Tender Relationship Specialty Start Date End Date Odell [...]
--- OUTSIDE RECORDS SUMMARY | 2024-04-17 15:09 | XMS_ITS | Encounter Summary ---
Author Organization [facility] Address [address] [place] [address] Care Team Providers Care Recording Artist Name Role Phone Mattie Louise MD Primary [facility] Provider [facility], Pcp Primary Care Provider Unavailabl e Mattie Louise MD Primary Care Provider [facility], Pcp Primary Care Provider Unavailabl e Reason for Visit * Reason Comments E-prescribe Rx Request Encounter Details Date Type Department Care Team Description 08/18/2016 Refill Medicine/Pediatrics - [address] [phone] Sven aCno PA-C E-prescribe Rx Request Social History Tobacco Use Types Packs/Day Years Used Date Smoking Tobacco: Never Smokeless Tobacco: Never Alcohol Use Standard Drinks/Week Comments No 0 (1 standard drink = 0.6 oz pur e alcohol) Sex Assigned at Date Recorded Not on file documented as of this encounter Miscellaneous Notes * Telephone Encounter - Isabel Carpenter M.A. - 08/18/2016 4:29 PM EDT Rx was refaxed see other telephone encounter Please refuse RX * Telephone Encounter - Romelia Hartman - 08/18/2016 4:25 PM EDT This is a duplicate request. See JAMISON harmon earlier today documented in this encounter Plan of Treatment Not on file documented as of this encounter Visit Diagnoses Diagnosis Anxiety Anxiety state, unspecified documented in this encounter Care Teams Recording Artist Relationship Specialty Start Date End Date Mattie Louise MD PCP - General Internal Medicine 02/16/15 07/06/20 Community, Pcp PCP - General Internal Medicine 07/07/20 12/10/20 Mattie Louise MD PCP - General Internal Medicine 12/11/20 03/02/21 Community, Pcp PCP - General Internal Medicine 03/03/21 documented as of this encounter
--- OUTSIDE RECORDS SUMMARY | 2024-04-17 15:09 | XMS_ITS | Encounter Summary ---
Author Organization [facility] Address [address] [place] [address] Care Team Providers Care Senior Case Manager Name Role Phone Mattie Louise MD Primary Care Provider Unavaila [facility], Pcp Primary Care Provider Unavailabl e Mattie Louise MD Primary Care Provider [facility], Pcp Primary Care Provider Unavailabl e Reason for Visit * Reason Onset Date Comments TEST RESULTS 05/23/2016 Encounter Details Date Type Department Care Team Description 05/23/2016 Telephone Medicine/Pediatrics - [address] [phone] Mattie Louise MD TEST RESULTS Social History Tobacco Use Types Packs/Day Years Used Date Smoking Tobacco: Never Smokeless Tobacco: Never Alcohol Use Standard Drinks/Week Comments No 0 (1 standard drink = 0.6 oz pur e alcohol) Sex Assigned at Date Recorded Not on file documented as of this encounter Miscellaneous Notes * Telephone Encounter - Dory Liu RN - 05/23/2016 3:23 PM EDT Please review labs done on 05/20 * Telephone Encounter - Jodi Torres M.A. - 05/23/2016 3:22 PM EDT Pt looking for bl work done 05/20/16 please review. * Telephone Encounter - Donna David - 05/23/2016 2:57 PM EDT Inform patient: ANY URGENT OR ABNORMAL RESULTS WIILL RESULT IN A CALL BACK TO THE PATIENT JAKE. Type of test: :lab work Date test was performed: 05/20/16 Where was the test performed: [facility] Who ordered this test?: cali stanford Is the doctor here today?: YES Can the message wait until the doctor returns?: NO IF PATIENT'S PCP IS NOT IN INSTRUCT PATIENT THAT THEY WILL RECEIVE A CALL BACK WHEN THE PCP IS IN THE OFFICE NEXT. documented in this encounter Plan of Treatment Not on file documented as of this encounter Visit Diagnoses Not on filedocumented in this encounter Care Teams Senior Case Manager Relationship Specialty Start Date End Date Mattie Louise MD PCP - General Internal Medicine 02/16/15 07/06/20 Community, Pcp PCP - General Internal Medicine 07/07/20 12/10/20 Mattie Louise MD PCP - General Internal Medicine 12/11/20 03/02/21 Community, Pcp PCP - General Internal Medicine 03/03/21 documented as of this encounter
--- OUTSIDE RECORDS SUMMARY | 2024-04-17 15:09 | XMS_ITS | Clinical Summary ---
Author Organization [facility] Address [address] [place] [address] Care Team Providers Care Boat Rigger Name Role Phone Mattie Raymundo MD Primary Care Provider Allergies Active Allergy Reactions Criticality Noted Date [...] Type Department Care Team Description 04/08/2024 Refill [facility] Heart & Vascular [place] at [address] [phone] Kartik Freitas PA-C 01/19/2024 10:13 AM EST - 01/19/2024 11:59 PM EST Hospital Encounter [facility] Heart & [place] [place] at [address] [phone] Kartik Freitas PA-C Discharge Disposition: Home or [...] Info) Description 05/10/2024 10:30 AM EST Appointment [facility] Heart & [facility] [place] at [facility] - Cardiology [address] [place] [address] Kartik Freitas PA-C [address] [place] [address] Health Maintenance Due Date Last Done Comments [...] ( - 2023-25 season) 2023 Care Teams Boat Rigger Relationship Specialty Start Date End Date Mattie Raymundo MD [address] [place] [phone] PCP - General Internal Medicine 10/18/23
--- OUTSIDE RECORDS SUMMARY | 2024-04-17 15:09 | XMS_ITS | Encounter Summary ---
Author Organization [facility] Address [address] [place] [address] Care Team Providers Care Surg Tech Name Role Phone Saman Gomes MD Primary Care Provider Unavail able Mattie Louise MD Primary Care Provider Unavaila [facility], Pcp Primary Care Provider Unavailabl e Mattie Louise MD Primary Care Provider [facility]availa [facility], Pcp Primary Care Provider Unavailabl e Reason for Visit * Reason Onset Date Comments Quality-fobt 10/03/2014 Encounter Details Date Type Department Care Team Description 10/03/2014 Telephone Medicine/Pediatrics - [address] [phone] Saman Gomes MD Quality-fobt Social History Tobacco Use Types Packs/Day Years Used Date Smoking Tobacco: Never Smokeless Tobacco: Never Alcohol Use Standard Drinks/Week Comments No 0 (1 standard drink = 0.6 oz pur e alcohol) Sex Assigned at Date Recorded Not on file documented as of this encounter Miscellaneous Notes * Telephone Encounter - Jodi Torres M.A. - 10/13/2014 2:07 PM EDT Please notify pt of negative FOBT, thanks. * Telephone Encounter - Jodi Torres M.A. - 10/03/2014 8:37 AM EDT FOBT kit given to pt. documented in this encounter Plan of Treatment Not on file documented as of this encounter Procedures Procedure Name Priority Date/Time Associated Diagnosis Comments CHG BLOOD OCCULT FECAL HGB DETER IA QUAL FECES 1-3 Routine 10/13/2014 2:05 PM EDT Special screening for malignant neoplasms, colon documented in this encounter Results * BLOOD OCCULT QUAL FECAL HEMGLBN (10/13/2014 2:05 PM EDT) OCCULT BLOOD, STOOL neg INTERNAL CONTROL VALID yes Stool 10/13/2014 2:05 PM EDT Saman Gomes MD LAB documented in this encounter Visit Diagnoses Diagnosis Special screening for malignant neoplasms, colon- Primary documented in this encounter Care Teams Surg Tech Relationship Specialty Start Date End Date Saman [...]
--- OUTSIDE RECORDS SUMMARY | 2024-04-17 15:09 | XMS_ITS | Encounter Summary ---
Author Organization [facility] Address [address] [place] [address] Care Team Providers Care Business Representative Name Role Phone Saman Gomes MD Primary Care Provider Unavail able Mattie Louise MD Primary Care Provider Unavaila [facility], Pcp Primary Care Provider Unavailabl e Mattie Louise MD Primary Care Provider Unavaila [facility], Pcp Primary Care Provider Unavailabl e Encounter Details Date Type Department Care Team Description 07/14/2014 Controlled Substance Contract with Plan Medical Records [address] [place] [id number] Abstract, Provider Social History Tobacco Use Types [...] on filedocumented in this encounter Care Teams Business Representative Relationship Specialty Start Date End Date Saman [...]
--- OUTSIDE RECORDS SUMMARY | 2024-04-17 15:09 | XMS_ITS | Encounter Summary ---
Author Organization [facility] Address [address] [place] [address] Care Team Providers Care Bobbin Inspector Name Role Phone Mattie Louise MD Primary Care Provider Unavaila [facility], Pcp Primary Care Provider Unavailabl e Mattie Louise MD Primary [facility], Pcp Primary Care Provider Unavailabl e Encounter Details Date Type Department Care Team Description 05/26/2017 PNO Controlled Substance Contract Medical Records [address] [place] [id number] Abstract, Provider Social History Tobacco Use Types [...] on filedocumented in this encounter Care Teams Bobbin Inspector Relationship Specialty Start Date End Date Mattie Louise MD PCP - General Internal Medicine 02/16/15 07/06/20 Community, Pcp PCP - General Internal Medicine 07/07/20 12/10/20 Mattie Louise MD PCP - General Internal Medicine 12/11/20 03/02/21 Community, Pcp PCP - General Internal Medicine 03/03/21 documented as of this encounter
--- OUTSIDE RECORDS SUMMARY | 2024-04-17 15:09 | XMS_ITS | Clinical Summary ---
Author Organization [facility] Address [address] [place] [address] Care Team Providers Care Ui Application Developer Name Role Phone Community, Pcp Primary Care Provider Unavailabl e Allergies Active Allergy Reactions Severity Noted Date Comments Benzyl Iuv-Oqwsqwuyyzgizueg-Tgxhcifex Anaphylaxis 07/12/2013 Medications Medication Sig Dispensed Refills Start Date End Date Status Ferrous Sulfate (IRON) 325 (65 FE) MG Tab Take 1 Tab by mouth 3 times daily. 270 Tab 0 04/08/2015 Active silver sulfADIAZINE (SILVADENE) 1 % cream Apply topically as needed 50 g 1 05/19/2017 Active fluticasone (FLONASE) 50 MCG/ACT nasal spray Use 2 spray per nostril daily. 1 Bottle 5 11/01/2017 Active vitamin D (ERGOCALCIFEROL) 78223 units capsule TAKE ONE CAPSULE BY MOUTH ONE TIME PER WEEK 12 Cap 1 11/27/2018 Active levothyroxine (SYNTHROID, LEVOTHROID) 88 MCG tablet Take 1 Tab by mouth daily for 360 days. 30 Tab 11 12/06/2019 Active Cyanocobalamin ([facility] B-12) 1000 MCG/15ML Liquid Take by mouth. 450 mL 0 12/20/2019 Active pantoprazole (PROTONIX) 40 MG tablet Take 1 Tab by mouth daily. 90 Tab 1 01/07/2020 Active JLTXVEOCPA-DIJG-GTIFB INE 50-325-40 MG OR TABS (FIORICET, ESGIC) per tablet Take 1 tablet by mouth every 6 hours as needed for Pain or Headaches. 20 Tab 0 03/09/2020 Active clotrimazole-betameth asone (LOTRISONE) creamIndications:Othe r fatigue,Personal history of diseases of the blood and blood-forming organs and certain disorders involving the immune mechanism APPLY TO AREA SPARINGLY TWICE A DAY FOR UP TO TWO WEEKS 30 g 2 04/17/2020 Active lorazepam (ATIVAN) 1 MG tabletIndications:Anx iety,Fatigue, unspecified type,History of anemia,Vitamin D deficiency Take 1 Tab by mouth every 6 hours as needed for Anxiety. 112 Tab 0 05/04/2020 Active Active Problems Problem Noted Date Increased PTH level 10/17/2018 Recurrent sinus infections 06/13/2018 Leukopenia 05/23/2016 Vitamin D Deficiency-16 on 08/22/13, 20 o n 05/02/14 08/23/2013 History of anemia 08/02/2013 Allergic rhinitis 07/12/2013 Migraine with aura (weakness in shoulder s is aura)-Neuro at [facility] 07/12/2013 Hypothyroidism 07/12/2013 Anxiety 07/12/2013 Seizure 10/20/2010 Overview: 2010, felt secondary to abrupt withdrawal of fioricet, EEG negative for seizure activity Family History Medical History Relation Name Comments Hypertension Father Arthritis Mother Thyroid Disorder Mother Hypertension Paternal Grandmother CA Breast Negative Hx CA Colon Negative Hx CA Ovarian Negative Hx Uterine Cancer Negative Hx Relation Name Status Comments Brother Alive migraines, HTN Daughter Alive migraines, kerwin rgies Father Alive HTN Maternal Grandfather (Age 20s) t uberculosis from war Maternal Grandmother (Age 82) raj faith, from overmedication with anesthesia Mother Alive migraines Paternal Grandfather (Age 65) ? Paternal Grandmother (Age 91) ol d age Son Alive healthy Social History Tobacco Use Types Packs/Day Years Used Date Smoking Tobacco: Never Smokeless Tobacco: Never Alcohol Use Standard Drinks/Week Comments No 0 (1 standard drink = 0.6 oz pur e alcohol) Sex Assigned at Date Recorded Not on file Last Filed Vital Signs Vital Sign Reading Time Taken Comments Blood Pressure 124/80 12/28/2020 2:12 PM EDT Pulse 139 03/09/2020 8:38 AM EST Temperature 36.8 ??C (98.2 ??F) 03/09/2020 8:38 AM ES T Respiratory Rate 12 03/09/2020 8:38 AM EST Oxygen Saturation 98% 03/09/2020 8:38 AM EST Inhaled Oxygen Concentration - - Weight 61.7 kg (136 lb) 12/28/2020 2:12 PM EDT Height 170.2 cm (5' 7 ) 12/28/2020 2:12 PM EDT Body Mass Index 21.3 12/28/2020 2:12 PM EDT Plan of Treatment Health Maintenance Due Date Last Done Comments Covid-19 Vaccine (#1) 1964 DTAP/TDAP/TD (1 - Tdap) 06/22/1983 MAMMOGRAM 2004 SHINGLES VACCINE (1 of 2) 2014 COLON CANCER SCREEN WITH STO OL CARD 10/14/2015 10/13/2014 BASELINE HEALTH EXAM 40-64 04/08/2017 04/08/2015, CERVICAL CANCER SCREENING 05/17/20202015, 07/04/2014 (External Completion of test per patient (Patient reports normal results)) INFLUENZA (#1) 2023 11/18/2014 (Refu sed), 03/17/2014 (Refused) CHOLESTEROL SCREENING 12/04/2024 12/05/2019 , 06/13/2018, 12/02/2016, Additional history exists PNEUMOCOCCAL VACCINE FOR HIG H RISK PATIENTS (#1) 2029 HEPATITIS C SCREENING Completed 08/22/2013 Care Teams Ui Application Developer Relationship Specialty Start Date End Date Community, Pcp PCP - General Internal Medicine 03/03/21
--- OUTSIDE RECORDS SUMMARY | 2024-04-17 15:09 | XMS_ITS | Encounter Summary ---
Author Organization [facility] Address [address] [place] [id number] Care Team Providers Care Sheet Catcher Name Role Phone Mattie Raymundo MD Primary Care Provider [phone] Encounter Details Date Type Department Care Team ([facility] Contact Info) Description 04/08/2024 Refill [facility] Heart & Vascular [place] at [facility] - Cardiology [address] [place] [address] Kartik Freitas PA-C [address] [place] [id number] Social History Tobacco Use Types Packs/Day Years [...] Info) Description 05/10/2024 10:30 AM EST Appointment [facility] Heart & Vascular [place] at [facility] - Cardiology [address] [place] [address] Kartik Freitas PA-C [address] [place] [address] documented as of this encounter Visit Diagnoses Diagnosis POTS (postural orthostatic tachycardia syndrome) Unspecified tachycardia documented in this encounter Care Teams Sheet Catcher Relationship Specialty Start Date End Date Mattie Raymundo MD [address] [place] [phone] PCP - General Internal Medicine 10/18/23 documented as of this encounter
--- OUTSIDE RECORDS SUMMARY | 2024-04-17 15:09 | XMS_ITS | Encounter Summary ---
Author Organization [facility] Address [address] [place] [address] Care Team Providers Care Print Color Operator Name Role Phone Mattie Louise MD Primary Care Provider [facility], Pcp Primary Care Provider Unavailabl e Mattie Louise MD Primary Care Provider [facility], Pcp Primary Care Provider Unavailabl e Encounter Details Date Type Department Care Team Description 01/14/2019 Pt. Non Urgent Medical Question Medicine/Pediatrics - [address] [phone] Mattie Louise MD Social History Tobacco Use Types Packs/Day Years Used Date Smoking Tobacco: Never Smokeless Tobacco: Never Alcohol Use Standard Drinks/Week Comments No 0 (1 standard drink = 0.6 oz pur e alcohol) Sex Assigned at Date Recorded Not on file documented as of this encounter Progress Notes * Daniela Trevino L.P.N. - 01/15/2019 8:36 AM ESTFrom: Brie Curry To: Mattie Louise MD Sent: 01/14/2019 7:27 PM EST Subject: Event heart monitor resoults Dear Dr. Raymundo, I was wondering after today's visit with Dr. Perez, who will be receiving the resoults of the event heart monitor i had for a month? I think you since you were the one that ordered it for me. But Dr. Perez will contact [facility] where i had my ultrasound of the heart to see if they have it. I signed a release form to give him permission to get all the results from them. Thank you so much for all that you do. All the best, Brie Silva Dr. gave me propranolol as an abortive med. and ordered a stress test. RS documented in this encounter Plan of Treatment Not on file documented as of this encounter Visit Diagnoses Not on filedocumented in this encounter Care Teams Print Color Operator Relationship Specialty Start Date End Date Mattie Louise MD PCP - General Internal Medicine 02/16/15 07/06/20 Community, Pcp PCP - General Internal Medicine 07/07/20 12/10/20 Mattie Louise MD PCP - General Internal Medicine 12/11/20 03/02/21 Community, Pcp PCP - General Internal Medicine 03/03/21 documented as of this encounter
--- OUTSIDE RECORDS SUMMARY | 2024-04-17 15:09 | XMS_ITS | Encounter Summary ---
Author Organization [facility] Address [address] [place] [address] Care Team Providers Care Drop Wire Stringer Name Role Phone Mattie Louise MD Primary Care Provider [facility], Pcp Primary Care Provider Unavailabl Mattie Jacobs MD Primary Care Provider [facility], Pcp Primary Care Provider Unavailabl e Encounter Details Date Type Department Care Team Description 03/31/2017 Pt. Non Urgent Medic al Question Medicine/Pediatrics - [address] [phone] Carlos Cordero PA-C Social History Tobacco Use Types Packs/Day Years Used Date Smoking Tobacco: Never Smokeless Tobacco: Never Alcohol Use Standard Drinks/Week Comments No 0 (1 standard drink = 0.6 oz pur e alcohol) Sex Assigned at Date Recorded Not on file documented as of this encounter Progress Notes * Daniela Trevino L.P.NZeus - 03/31/2017 9:59 AM ESTFrom: Brie Curry To: Carlos Cordero PA-C Sent: 03/31/2017 7:20 AM EST Subject: Sinus Infection Dear Carlos, I hope you are well. I am writing because you told me to follow-up if I don't feel completely better with the round penicillin, so that we can try a more traditional antibiotic to treat my sinus infection. Though I have improved slightly, I know that I waited too long (as you also noticed) and I believe I need Augmentin to completely finish off the infection. I know I usually have liquid forms ofantibiotic, but can I please have the pill form of the Augmentin? The liquid form gives me indigestion and more of an upset stomach, so I want to practice swallowing the pills instead. I think the Augmentin pills will definitely make me feel 100%. Please let me know if you have any questions. Thankyou! All the best, Brie documented in this encounter Plan of Treatment Not on file documented as of this encounter Visit Diagnoses Not on filedocumented in this encounter Care Teams Drop Wire Stringer Relationship Specialty Start Date End Date Mattie Louise MD PCP - General Internal Medicine 02/16/15 07/06/20 Community, Pcp PCP - General Internal Medicine 07/07/20 12/10/20 Mattie Louise MD PCP - General Internal Medicine 12/11/20 03/02/21 Community, Pcp PCP - General Internal Medicine 03/03/21 documented as of this encounter
--- OUTSIDE RECORDS SUMMARY | 2024-04-17 15:09 | XMS_ITS | Encounter Summary ---
Author Organization [facility] Address [address] [place] [address] Care Team Providers Care Donations Attendant Name Role Phone Odell oGmes MD Primary Care Provider Saman Villarreal MD Primary Care Provider Unavail able Mattie Louise MD Primary Care Provider Unavaila [facility], Pcp Primary Care Provider Unavailabl e Mattie Louise MD Primary Care Provider [facility], Pcp Primary Care Provider Unavailabl e Encounter Details Date Type Department Care Team Description 01/27/2014 Pt. Non Urgent Medic al Question Medicine/Pediatrics - [address] [phone] Odell Gomes MD Social History Tobacco Use Types Packs/Day Years Used Date Smoking Tobacco: Never Smokeless Tobacco: Never Alcohol Use Standard Drinks/Week Comments No 0 (1 standard drink = 0.6 oz pur e alcohol) Sex Assigned at Date Recorded Not on file documented as of this encounter Progress Notes * Joy Tong Rn - 01/27/2014 11:01 AM ESTFrom: Brie Curry To: Odell Gomes MD Sent: 01/27/2014 10:51 AM EST Subject: symptoms had not improved Aisha, I met with Carlos Cordero on Monday. I do not have her email information on [employer], so I thought itwas best to contact [...] on filedocumented in this encounter Care Teams Donations Attendant Relationship Specialty Start Date End Date Odell [...]
--- OUTSIDE RECORDS SUMMARY | 2024-04-17 15:10 | XMS_ITS | Encounter Summary ---
Author Organization [facility] Address [address] [place] [address] Care Team Providers Care Typing Checker Name Role Phone Mattie Louise MD Primary Care Provider Unavaila [facility], Pcp Primary Care Provider Unavailabl e Mattie Louise MD Primary Care Provider [facility], Pcp Primary Care Provider Unavailabl e Encounter Details Date Type Department Care Team Description 10/02/2018 [facility] Medical Records [address] [place] [id number] Abstract, Provider Social History Tobacco Use Types [...] on filedocumented in this encounter Care Teams Typing Checker Relationship Specialty Start Date End Date Mattie Louise MD PCP - General Internal Medicine 02/16/15 07/06/20 [facility], Pcp PCP - General Internal Medicine 07/07/20 12/10/20 Mattie Louise MD PCP - General Internal Medicine 12/11/20 03/02/21 [facility], Pcp PCP - General Internal Medicine 03/03/21 documented as of this encounter
--- OUTSIDE RECORDS SUMMARY | 2024-04-17 15:10 | XMS_ITS | Encounter Summary ---
Author Organization [employer] [facility] Address [address] [place] [address] Care Team Providers Care Car Dropper Name Role Phone Odell Gomes MD Primary Care Provider Unavailab Saman Malik MD Primary Care Provider Unavail able Mattie Louise MD Primary Care Provider Unavaila [facility], Pcp Primary Care Provider Unavailabl e Mattie Louise MD Primary Care Provider [facility], Pcp Primary Care Provider Unavailabl e Reason for Visit * Reason Comments E-prescribe Rx Request Encounter Details Date Type Department Care Team Description 12/01/2013 Refill Medicine/Pediatrics - [address] [phone] Edith Frazier FNP E-prescribe Rx Request Social [...] an upcoming appointment? [facility]ill [facility]. Appt due (THE MEDICATION REQUESTED IS ON THE MED LIST ABOVE) All of the medications requested were on the CURRENT MEDS list Did you check the Pharmacy information above?: YES Patient wants: 90 -day supply Is this a mail order prescription request ? NO Patients current insurance carrier is: Payor: [facility] / Plan: PPO $20 STORY [id number] / Product Type: PPO [id number] documented in this encounter Plan of Treatment Not on file documented as of this encounter Visit Diagnoses Not on filedocumented in this encounter Care Teams Car Dropper Relationship Specialty Start Date End Date Odell [...]
--- OUTSIDE RECORDS SUMMARY | 2024-04-17 15:10 | XMS_ITS | Encounter Summary ---
Author Organization [facility] Address [address] [place] [address] Care Team Providers Care Record Producer Name Role Phone Mattie Louise MD Primary Care Provider [facility], Pcp Primary Care Provider Mattie Tineo MD Primary Care Provider [facility], Pcp Primary Care Provider Unavailabl e Encounter Details Date Type Department Care Team Description 10/03/2018 Pt. Non Urgent Medical Question Medicine/Pediatrics - [address] [phone] Mattie Louise MD Social History Tobacco Use Types Packs/Day Years Used Date Smoking Tobacco: Never Smokeless Tobacco: Never Alcohol Use Standard Drinks/Week Comments No 0 (1 standard drink = 0.6 oz pur e alcohol) Sex Assigned at Date Recorded Not on file documented as of this encounter Progress Notes * Dory Liu RN - 10/03/2018 4:00 PM EDTFrom: Brie Curry To: Mattie Louise MD Sent: 10/03/2018 3:38 PM EDT Subject: Test Results Hi Dr. Raymundo, Thanks for sending the test results back. I would love to try restarting the B12 injections for nowto see if that will remedy the deficiency. Also, for the levothyroxine/thyroid issue - do you thinkwe can up my dose to be like [place]'s (my daughter's)? She had trouble lowering her TSH until it was prescribed as the 75 mcg dose Monday-Monday, and two 75 mcg tablets on Monday. Maybe I can do the same and see if it levels out before increasing the daily dose overall? It may be just what I need since the TSH isn't dangerously high, but enough for me to feel it. Look forward to hearing back! Best, Brie documented in this encounter Plan of Treatment Not on file documented as of this encounter Visit Diagnoses Not on filedocumented in this encounter Care Teams Record Producer Relationship Specialty Start Date End Date Mattie Louise MD PCP - General Internal Medicine 02/16/15 07/06/20 [facility], Pcp PCP - General Internal Medicine 07/07/20 12/10/20 Mattie Louise MD PCP - General Internal Medicine 12/11/20 03/02/21 [facility], Pcp PCP - General Internal Medicine 03/03/21 documented as of this encounter
--- OUTSIDE RECORDS SUMMARY | 2024-04-17 15:10 | XMS_ITS | Encounter Summary ---
Author Organization [facility] Address [address] [place] [address] Care Team Providers Care Embossing Clerk Name Role Phone Odell Gomes MD Primary [...] Non Urgent Medic al Question Medicine/Pediatrics - [address] [phone] Odell Gomes MD Social History Tobacco Use [...] so so much. Brie Curry my cell [phone] documented in this encounter Plan of Treatment Not on file documented as of this encounter Visit Diagnoses Not on filedocumented in this encounter Care Teams Embossing Clerk Relationship Specialty Start Date End Date Odell [...]
--- OUTSIDE RECORDS SUMMARY | 2024-04-17 15:10 | XMS_ITS | Encounter Summary ---
Author Organization [facility] Address [address] [place] [address] Care Team Providers Care Engineering Secretary Name Role Phone Mattie Louise MD Primary Care Provider [facility], Pcp Primary Care Provider Unavailabl Mattie Jacobs MD Primary Care Provider [facility], Pcp Primary Care Provider Unavailabl e Encounter Details Date Type Department Care Team Description 06/14/2018 Orders Only Medicine/Pediatrics - [address] [phone] Bella Valderrama PA-C Low serum calcium (Primary Dx); Hypothyroidism, unspecified type Social History Tobacco Use Types Packs/Day Years Used Date Smoking Tobacco: Never Smokeless Tobacco: Never Alcohol Use Standard Drinks/Week Comments No 0 (1 standard drink = 0.6 oz pur e alcohol) Sex Assigned at Date Recorded Not on file documented as of this encounter Plan of Treatment Scheduled Orders Name Type Priority Associated Diagnoses Orde r Schedule THYROID PROFILE W/TSH Lab Routine Hypothyroidism, unspecified type Expected: 06/14/2018, Expires: 06/14/2019 documented as of this encounter Results * CALCIUM,TOTAL (10/01/2018 9:19 AM EDT) CALCIUM 9.3 8.5 - 10.5 mg/dL 10/01/2018 12:55 PM EDT [facility] 10/01/2018 9:19 AM EDT 10/01/2018 9:19 AM EDT Bella Valderrama PA-C LAB [email or web address] Facile System * (ABNORMAL) PTH INTACT (10/01/2018 9:19 AM EDT) INTACT PTH 99(H) 18 - 88 pg/mL 10/01/2018 2:16 PM EDT [facility] 10/01/2018 9:19 AM EDT 10/01/2018 9:19 AM EDT Bella Valderrama PA-C LAB [facility] documented in this encounter Visit Diagnoses Diagnosis Low serum calcium- Primary Hypothyroidism, unspecified type documented in this encounter Care Teams Engineering Secretary Relationship Specialty Start Date End Date Mattie Louise MD PCP - General Internal Medicine 02/16/15 07/06/20 [facility], Pcp PCP - General Internal Medicine 07/07/20 12/10/20 Mattie Louise MD PCP - General Internal Medicine 12/11/20 03/02/21 [facility], Pcp PCP - General Internal Medicine 03/03/21 documented as of this encounter
--- OUTSIDE RECORDS SUMMARY | 2024-04-17 15:10 | XMS_ITS | Encounter Summary ---
Author Organization [facility] Address [address] [place] [address] Care Team Providers Care Event Marketing Coordinator Name Role Phone Odell Gomes MD Primary Care Provider Kiraab Saman Malik MD Primary Care Provider Unavail able Mattie Louise MD Primary Care Provider Unavaila [facility], Pcp Primary Care Provider Unavailabl e Mattie Louise MD [facility], Pcp Primary Care Provider Unavailabl e Encounter Details Date Type Department Care Team Description 07/15/2013 Release of Information Medical Records [address] [place] [id number] Abstract, Provider Social History Tobacco Use Types [...] on filedocumented in this encounter Care Teams Event Marketing Coordinator Relationship Specialty Start Date End Date Odell [...]
--- OUTSIDE RECORDS SUMMARY | 2024-04-17 15:10 | XMS_ITS | Encounter Summary ---
Author Organization [facility] Address [address] [place] [address] Care Team Providers Care Engineering Teacher Name Role Phone Odell Gomes MD Primary Care Provider Kiraab Saman Malik MD Primary Care Provider Unavail able Mattie Louise MD Primary Care Provider Unavaila [facility], Pcp Primary Care Provider Unavailabl e Mattie Louise MD Primary Care Provider [facility], Pcp Primary Care Provider Unavailabl e Encounter Details Date Type Department Care Team Description 08/29/2013 Controlled Substance Contract with Plan Medical Records [address] [place] [id number] Abstract, Provider Social History Tobacco Use Types [...] on filedocumented in this encounter Care Teams Engineering Teacher Relationship Specialty Start Date End Date Odell [...]
--- OUTSIDE RECORDS SUMMARY | 2024-04-17 15:10 | XMS_ITS | Encounter Summary ---
Author Organization [facility] Address [address] [place] [address] Care Team Providers Care Grounds Maintenance Supervisor Name Role Phone Mattie Louise MD Primary Care Provider Unavaila [facility], Pcp Primary Care Provider Unavailabl e Mattie Louise MD Primary Care Provider Unavaila [facility], Pcp Primary Care Provider Unavailabl e Reason for Visit * Reason Onset Date Comments Provider Call Back 08/29/2018 Encounter Details Date Type Department Care Team Description 08/29/2018 Telephone Dermatology - [address] [phone] Edilia Limon PA-C Provider Call Back Social History Tobacco Use Types Packs/Day Years Used Date Smoking Tobacco: Never Smokeless Tobacco: Never Alcohol Use Standard Drinks/Week Comments No 0 (1 standard drink = 0.6 oz pur e alcohol) Sex Assigned at Date Recorded Not on file documented as of this encounter Miscellaneous Notes * Telephone Encounter - Esthela Solis M.A. - 09/11/2018 2:29 PM EDT Spoke to pt that she needs to call her insurance and billing dept. * Telephone Encounter - Edilia Limon - 09/10/2018 7:56 AM EDT She will need to discuss this with the insurance company and the billing department. The insurance company can request a copy of her visit. * Telephone Encounter - Esthela Solis M.A. - 09/05/2018 11:34 AM EDT Please advise. Thank you * Telephone Encounter - Edilia Kauffman - 08/29/2018 10:05 AM EDT Patient was here on 09/12/2017 and had skin tags removed that were in her under arm, and that wouldbleed every time she would shave. She has recently gotten a bill for this procedure, and her Insurance company ([employer]) told the patient that the skin tags were considered cosmetic, but that you could appeal this stating that it was medically necessary for the patient to have them removedas they were constantly getting cut/open and to avoid infection. documented in this encounter Plan of Treatment Not on file documented as of this encounter Visit Diagnoses Not on filedocumented in this encounter Care Teams Grounds Maintenance Supervisor Relationship Specialty Start Date End Date Mattie Louise MD PCP - General Internal Medicine 02/16/15 07/06/20 [facility], Pcp PCP - General Internal Medicine 07/07/20 12/10/20 Mattie Louise MD PCP - General Internal Medicine 12/11/20 03/02/21 [facility], Pcp PCP - General Internal Medicine 03/03/21 documented as of this encounter
== END 2024-04-17 14:52 | disposition home or self-care (01) ==
PROVIDERS: PCP Internal Medicine; Visit Provider Student in an Organized Health Care Education/Training Program
DX: E04.1 Nontoxic single thyroid nodule (principal); E04.2 Nontoxic multinodular goiter; E03.8 Other specified hypothyroidism; E06.3 Autoimmune thyroiditis
CPT/HCPCS: 99214

== ENCOUNTER 2024-04-17 13:46 | Outpatient (REF) | payer OTHER, SELFPAY ==
--- OUTSIDE RECORDS SUMMARY | 2024-04-17 16:08 | XMS_ITS | Encounter Summary ---
Author Organization [facility] Address [address] [place] [address] Care Team Providers Care Sandblaster Supervisor Name Role Phone Mattie Louise MD Primary [facility] Provider [facility], Pcp Primary Care Provider Unavailabl e Mattie Louise MD Primary Care Provider [facility], Pcp Primary Care Provider Unavailabl e Encounter Details Date Type Department Care Team Description 12/15/2016 Pt. Non Urgent Medical Question Medicine/Pediatrics - [address] [phone] Mattie Louise MD Social History Tobacco Use [...] on filedocumented in this encounter Care Teams Sandblaster Supervisor Relationship Specialty Start Date End Date Mattie Louise MD PCP - General Internal Medicine 02/16/15 07/06/20 [facility], Pcp PCP - General Internal Medicine 07/07/20 12/10/20 Mattie Louise MD PCP - General Internal Medicine 12/11/20 03/02/21 [facility], Pcp PCP - General Internal Medicine 03/03/21 documented as of this encounter
--- OUTSIDE RECORDS SUMMARY | 2024-04-17 16:08 | XMS_ITS | Encounter Summary ---
Author Organization [facility] Address [address] [place] [address] Care Team Providers Care Bridge Attacher Name Role Phone Odell Gomes MD Primary Care Provider Kiraab Saman Malik MD Primary Care Provider Unavail able Mattie Louise MD Primary Care Provider [facility]availa [facility]cp Primary Care Provider Unavailabl e Mattie Louise MD [facility] Primary Care Provider Unavailabl e Encounter Details Date Type Department Care Team Description 07/15/2013 Release of Information Medical Records [address] [place] [id number] Abstract, Provider Social History Tobacco Use Types [...] on filedocumented in this encounter Care Teams Bridge Attacher Relationship Specialty Start Date End Date Odell [...]
--- OUTSIDE RECORDS SUMMARY | 2024-04-17 16:08 | XMS_ITS | Encounter Summary ---
Author Organization [facility] Address [address] [place] [address] Care Team Providers Care Supervisor Agricultural Education Name Role Phone Odell Gomes MD Primary Care Provider Saman Villarreal MD Primary Care Provider Unavail able Mattie Louise MD Primary Care Provider Unavaila [facility], Pcp Primary Care Provider Unavailabl e Mattie Louise MD Primary Care Provider [facility], Pcp Primary Care Provider Unavailabl e Encounter Details Date Type Department Care Team Description 01/27/2014 Pt. Non Urgent Medic al Question Medicine/Pediatrics - [address] [phone] Odell Gomes MD Social History Tobacco Use [...] do not have her email information on [employer], so I thought itwas best to contact [...] on filedocumented in this encounter Care Teams Supervisor Agricultural Education Relationship Specialty Start Date End Date Odell [...]
--- OUTSIDE RECORDS SUMMARY | 2024-04-17 16:08 | XMS_ITS | Encounter Summary ---
Author Organization [employer] [facility] Address [address] [place] [address] Care Team Providers Care Window Repairer Name Role Phone Odell Gomes MD Primary Care Provider Kiraab Saman Malik MD Primary Care Provider Unavail able Mattie Louise MD Primary Care Provider Unavaila [facility], Pcp Primary Care Provider Unavailabl e Mattie Louise MD Primary Care Provider [facility], Pcp Primary Care Provider Unavailabl e Encounter Details Date Type Department Care Team Description 08/29/2013 Controlled Substance Contract with Plan Medical Records [address] [place] [address] Abstract, Provider Social History Tobacco Use Types [...] on filedocumented in this encounter Care Teams Window Repairer Relationship Specialty Start Date End Date Odell [...]
--- OUTSIDE RECORDS SUMMARY | 2024-04-17 16:08 | XMS_ITS | Clinical Summary ---
Author Organization [facility] Address [address] [place] [address] Care Team Providers Care Program Attendant Name Role Phone Mattie Raymundo MD Primary Care Provider [phone] Allergies Active Allergy Reactions Criticality Noted Date [...] Type Department Care Team Description 04/08/2024 Refill [facility] [place] at [address] [phone] Kartik Freitas PA-C 01/19/2024 10:13 AM EST - 01/19/2024 11:59 PM EST Hospital Encounter [facility] [place] at [address] [phone] Kartik Freitas PA-C Discharge Disposition: Home or [...] Info) Description 05/10/2024 10:30 AM EST Appointment [facility] [place] at [facility] - Cardiology [address] [place] [address] Kartik Freitas PA-C [address] [place] [address] Health Maintenance Due Date Last Done Comments [...] ( - 2023-25 season) 2023 Care Teams Program Attendant Relationship Specialty Start Date End Date Mattie Raymundo MD [address] [place] [phone] PCP - General Internal Medicine 10/18/23
--- OUTSIDE RECORDS SUMMARY | 2024-04-17 16:08 | XMS_ITS | Encounter Summary ---
Author Organization [facility] Address [address] [place] [address] Care Team Providers Care Staffing Administrator Name Role Phone Saman Gomes MD Primary Care Provider Unavail able Mattie Louise MD Primary Care Provider Unavaila ble [facility], Pcp Primary Care Provider Unavailabl e Mattie Louise MD Primary Care Provider Unavaila [facility], Pcp Primary Care Provider Unavailabl e Encounter Details Date Type Department Care Team Description 08/11/2014 Transfer Records Medical Records [address] [place] [address] Social History Tobacco Use Types Packs/Day Years [...] on filedocumented in this encounter Care Teams Staffing Administrator Relationship Specialty Start Date End Date Saman [...]
--- OUTSIDE RECORDS SUMMARY | 2024-04-17 16:08 | XMS_ITS | Encounter Summary ---
Author Organization [facility] Address [address] [place] [address] Care Team Providers Care Capital Markets Specialist Name Role Phone Mattie Louise MD Primary [facility] Provider [facility], Pcp Primary Care Provider Unavailabl e Mattie Louise MD Primary Care Provider [facility], Pcp Primary Care Provider Unavailabl e Encounter Details Date Type Department Care Team Description 08/30/2016 Pt. Non Urgent Medic al Question Medicine/Pediatrics - [address] [phone] Bella Valderrama PA-C Social History Tobacco Use [...] on filedocumented in this encounter Care Teams Capital Markets Specialist Relationship Specialty Start Date End Date Mattie Louise MD PCP - General Internal Medicine 02/16/15 07/06/20 [facility], Pcp PCP - General Internal Medicine 07/07/20 12/10/20 Mattie Louise MD PCP - General Internal Medicine 12/11/20 03/02/21 [facility], Pcp PCP - General Internal Medicine 03/03/21 documented as of this encounter
--- OUTSIDE RECORDS SUMMARY | 2024-04-17 16:08 | XMS_ITS | Encounter Summary ---
Author Organization [employer] [facility] Address [address] [place] [address] Care Team Providers Care Elevator Repairer Apprentice Name Role Phone Saman Gomes MD Primary Care Provider Unavail able Mattie Louise MD Primary Care Provider Unavaila ble [facility], Pcp Primary Care Provider Unavailabl e Mattie Louise MD Primary Care Provider Unavaila [facility], Pcp Primary Care Provider Unavailabl e Encounter Details Date Type Department Care Team Description 10/08/2014 [facility] Report Medical Records [address] [place] [address] Abstract, Provider Social History Tobacco Use Types [...] on filedocumented in this encounter Care Teams Elevator Repairer Apprentice Relationship Specialty Start Date End Date Saman [...]
--- OUTSIDE RECORDS SUMMARY | 2024-04-17 16:08 | XMS_ITS | Encounter Summary ---
Author Organization [facility] Address [address] [place] [address] Care Team Providers Care Fuel Injection Servicer Name Role Phone Mattie Louise MD Primary Care Provider Unavaila [facility], Pcp Primary Care Provider Unavailabl e Mattie Louise MD Primary Care Provider Unavaila [facility], Pcp Primary Care Provider Unavailabl e Encounter Details Date Type Department Care Team Description 04/08/2015 Controlled Substance Contract with Plan Medical Records [address] [place] [address] Abstract, Provider Social History Tobacco Use Types [...] on filedocumented in this encounter Care Teams Fuel Injection Servicer Relationship Specialty Start Date End Date Mattie Louise MD PCP - General Internal Medicine 02/16/15 07/06/20 [facility], Pcp PCP - General Internal Medicine 07/07/20 12/10/20 Mattie Louise MD PCP - General Internal Medicine 12/11/20 03/02/21 [facility], Pcp PCP - General Internal Medicine 03/03/21 documented as of this encounter
--- OUTSIDE RECORDS SUMMARY | 2024-04-17 16:08 | XMS_ITS | Encounter Summary ---
Author Organization [facility] [facility] Address [address] [place] [address] Care Team Providers Care Slasher Tender Name Role Phone Mattie Louise MD Primary Care Provider Unavaila [facility], Pcp Primary Care Provider Unavailabl e Mattie Louise MD Primary Care Provider Unavaila [facility], Pcp Primary Care Provider Unavailabl e Encounter Details Date Type Department Care Team Description 05/11/2020 [facility] Medical Records [address] [place] [address] Abstract, Provider Social History Tobacco Use Types [...] on filedocumented in this encounter Care Teams Slasher Tender Relationship Specialty Start Date End Date Mattie Louise MD PCP - General Internal Medicine 02/16/15 07/06/20 [facility], Pcp PCP - General Internal Medicine 07/07/20 12/10/20 Mattie Louise MD PCP - General Internal Medicine 12/11/20 03/02/21 [facility], Pcp PCP - General Internal Medicine 03/03/21 documented as of this encounter
--- OUTSIDE RECORDS SUMMARY | 2024-04-17 16:08 | XMS_ITS | Encounter Summary ---
Author Organization [facility] Address [address] [place] [address] Care Team Providers Care Dog Walker Name Role Phone Mattie Louise MD Primary Care Provider Unavaila [facility], Pcp Primary Care Provider Unavailabl e Mattie Louise MD Primary Care Provider [facility], Pcp Primary Care Provider Unavailabl e Reason for Visit * Reason Onset Date Comments TEST RESULTS 05/23/2016 Encounter Details Date Type Department Care Team Description 05/23/2016 Telephone Medicine/Pediatrics - [address] [phone] Mattie Louise MD TEST RESULTS Social History [...] on filedocumented in this encounter Care Teams Dog Walker Relationship Specialty Start Date End Date Mattie Louise MD PCP - General Internal Medicine 02/16/15 07/06/20 [facility], Pcp PCP - General Internal Medicine 07/07/20 12/10/20 Mattie Louise MD PCP - General Internal Medicine 12/11/20 03/02/21 [facility], Pcp PCP - General Internal Medicine 03/03/21 documented as of this encounter
--- OUTSIDE RECORDS SUMMARY | 2024-04-17 16:08 | XMS_ITS | Encounter Summary ---
Author Organization [employer] [facility] Address [address] [place] [address] Care Team Providers Care Manufacturing Coordinator Name Role Phone Mattie Louise MD Primary Care Provider Unavaila [facility], Pcp Primary Care Provider Unavailabl e Mattie Louise MD Primary Care Provider [facility], Pcp Primary Care Provider Unavailabl e Encounter Details Date Type Department Care Team Description 06/22/2015 Orders Only Medicine/Pediatrics - [address] [phone] Carlos Cordero PA-C Social History Tobacco Use [...] on filedocumented in this encounter Care Teams Manufacturing Coordinator Relationship Specialty Start Date End Date Mattie Louise MD PCP - General Internal Medicine 02/16/15 07/06/20 Community, Pcp PCP - General Internal Medicine 07/07/20 12/10/20 Mattie Louise MD PCP - General Internal Medicine 12/11/20 03/02/21 Community, Pcp PCP - General Internal Medicine 03/03/21 documented as of this encounter
--- OUTSIDE RECORDS SUMMARY | 2024-04-17 16:08 | XMS_ITS | Encounter Summary ---
Author Organization [employer] [facility] Address [address] [place] [address] Care Team Providers Care Flying I Instructor Name Role Phone Mattie Louise MD Primary Care Provider Unavaila [facility], Pcp Primary Care Provider Unavailabl e Mattie Louise MD [facility], [facility]cp Primary Care Provider Unavailabl e Encounter Details Date Type Department Care Team Description 07/06/2018 PNO Controlled Substance Contract Medical Records [address] [place] [id number] Abstract, Provider Social History Tobacco Use Types [...] on filedocumented in this encounter Care Teams Flying I Instructor Relationship Specialty Start Date End Date Mattie Louise MD PCP - General Internal Medicine 02/16/15 07/06/20 Community, Pcp PCP - General Internal Medicine 07/07/20 12/10/20 Mattie Louise MD PCP - General Internal Medicine 12/11/20 03/02/21 Community, Pcp PCP - General Internal Medicine 03/03/21 documented as of this encounter
--- OUTSIDE RECORDS SUMMARY | 2024-04-17 16:08 | XMS_ITS | Encounter Summary ---
Author Organization [facility] Address [address] [place] [address] Care Team Providers Care Valve Seater Operator Name Role Phone Mattie Louise MD Primary Care Provider [facility], Pcp Primary Care Provider Unavailabl e Mattie Louise MD Primary Care Provider [facility], Pcp Primary Care Provider Unavailabl e Encounter Details Date Type Department Care Team Description 01/14/2019 Pt. Non Urgent Medical Question Medicine/Pediatrics - [address] [phone] Mattie Louise MD Social History Tobacco Use [...] for me. But Dr. Perez will contact [facility] where i had my ultrasound of [...] on filedocumented in this encounter Care Teams Valve Seater Operator Relationship Specialty Start Date End Date Mattie Louise MD PCP - General Internal Medicine 02/16/15 07/06/20 Community, Pcp PCP - General Internal Medicine 07/07/20 12/10/20 Mattie Louise MD PCP - General Internal Medicine 12/11/20 03/02/21 Community, Pcp PCP - General Internal Medicine 03/03/21 documented as of this encounter
--- OUTSIDE RECORDS SUMMARY | 2024-04-17 16:08 | XMS_ITS | Encounter Summary ---
Author Organization [facility] [facility] Address [address] [place] [address] Care Team Providers Care Chief Electrician Name Role Phone Mattie Louise MD Primary Care Provider Unavaila [facility], Pcp Primary Care Provider Unavailabl e Mattie Louise MD Primary Care Provider [facility], Pcp Primary Care Provider Unavailabl e Encounter Details Date Type Department Care Team Description 04/23/2020 Orders Only Medicine/Pediatrics - [address] [phone] Mattie Louise MD Social History Tobacco Use [...] on filedocumented in this encounter Care Teams Chief Electrician Relationship Specialty Start Date End Date Mattie Louise MD PCP - General Internal Medicine 02/16/15 07/06/20 Community, Pcp PCP - General Internal Medicine 07/07/20 12/10/20 Mattie Louise MD PCP - General Internal Medicine 12/11/20 03/02/21 Community, Pcp PCP - General Internal Medicine 03/03/21 documented as of this encounter
--- OUTSIDE RECORDS SUMMARY | 2024-04-17 16:08 | XMS_ITS | Encounter Summary ---
Author Organization [employer] [facility] Address [address] [place] [address] Care Team Providers Care [facility] Name Role Phone Odell Gomes MD Primary Care Provider Kiraab Saman Malik MD Primary Care Provider Unavail able Mattie Louise MD Primary Care Provider Unavaila [facility], Pcp Primary Care Provider Unavailabl e Mattie Louise MD Primary Care Provider [facility], Pcp Primary Care Provider Unavailabl e Encounter Details Date Type Department Care Team Description 08/06/2013 OPERATIONS LOGISTICS ANALYST/[facility] Report Medical Records [address] [place] [address] Abstract, Provider Social History Tobacco Use Types [...] on filedocumented in this encounter Care Teams [facility] Relationship Specialty Start Date End Date Odell Gomes MD PCP - General Internal Medicine 07/08/13 03/05/14 Saman Gomes MD PCP - General Internal Medicine 03/06/14 02/15/15 Mattie Louise MD PCP - General Internal Medicine 02/16/15 07/06/20 [facility], Pcp PCP - General Internal Medicine 07/07/20 12/10/20 Mattie Louise MD PCP - General Internal Medicine 12/11/20 03/02/21 Community, Pcp PCP - General Internal Medicine 03/03/21 documented as of this encounter
--- OUTSIDE RECORDS SUMMARY | 2024-04-17 16:08 | XMS_ITS | Encounter Summary ---
Author Organization [facility] Address [address] [place] [address] Care Team Providers Care Industrial Engineering Technician Name Role Phone Mattie Raymundo MD Primary Care Provider [phone] Encounter Details Date Type Department Care Team ([facility] Contact Info) Description 04/08/[address] [facility] [place] [facility] - Cardiology [address] [place] [address] Kartik Freitas PA-C [address] [place] [address] Social History Tobacco Use Types Packs/Day Years [...] Info) Description 05/10/2024 10:[address] [facility] [place] [facility] - Cardiology [address] [place] [address] Kartik Freitas PA-C [address] [place] [address] documented as of this encounter Visit Diagnoses Diagnosis POTS (postural orthostatic tachycardia syndrome) Unspecified tachycardia documented in this encounter Care Teams Industrial Engineering Technician Relationship Specialty Start Date End Date Mattie Raymundo MD [address] [place] [phone] PCP - General Internal Medicine 10/18/23 documented as of this encounter
--- OUTSIDE RECORDS SUMMARY | 2024-04-17 16:08 | XMS_ITS | Encounter Summary ---
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 - 05/19/2015 12:58 PM EDTFrom: Brie Curry To: Clare Nick MD Sent: 05/19/2015 12:18 PM EDT Subject: test results Hi Dr. Nick, I was just wondering what were my results of east infection and pop smear tests. Thank you. Brie PS: waiting to p-up correct prescription. documented in this encounter Plan of Treatment Not on file documented as of this encounter Visit Diagnoses Not on filedocumented in this encounter Care Teams Key Maker Relationship Specialty Start Date End Date Mattie Louise MD PCP - General Internal Medicine 02/16/15 07/06/20 Community, Pcp PCP - General Internal Medicine 07/07/20 12/10/20 Mattie Louise MD PCP - General Internal Medicine 12/11/20 03/02/21 Community, Pcp PCP - General Internal Medicine 03/03/21 documented as of this encounter
--- OUTSIDE RECORDS SUMMARY | 2024-04-17 16:09 | XMS_ITS | Encounter Summary ---
Author Organization [employer] [facility] Address [address] [place] [address] Care Team Providers Care District Sales Manager Name Role Phone Mattie Louise MD Primary Care Provider Unavaila [facility], Pcp Primary Care Provider Unavailabl e Mattie Louise MD Primary Care Provider Unavaila [facility], Pcp Primary Care Provider Unavailabl e Encounter Details Date Type Department Care Team Description 03/04/2016 [facility] Medical Records [address] [place] [address] Abstract, Provider Social History Tobacco Use Types [...] on filedocumented in this encounter Care Teams District Sales Manager Relationship Specialty Start Date End Date Mattie Louise MD PCP - General Internal Medicine 02/16/15 07/06/20 Community, Pcp PCP - General Internal Medicine 07/07/20 12/10/20 Mattie Louise MD PCP - General Internal Medicine 12/11/20 03/02/21 Community, Pcp PCP - General Internal Medicine 03/03/21 documented as of this encounter
--- OUTSIDE RECORDS SUMMARY | 2024-04-17 16:09 | XMS_ITS | Encounter Summary ---
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 thank you! Medication renewals requested in this message routed to other providers: lorazepam (ATIVAN) 1 MG tablet [Mattie Raymundo MD] documented in this encounter Plan of Treatment Not on file documented as of this encounter Visit Diagnoses Not on filedocumented in this encounter Care Teams Flower Grower Relationship Specialty Start Date End Date Mattie Louise MD PCP - General Internal Medicine 02/16/15 07/06/20 Community, Pcp PCP - General Internal Medicine 07/07/20 12/10/20 Mattie Louise MD PCP - General Internal Medicine 12/11/20 03/02/21 Community, Pcp PCP - General Internal Medicine 03/03/21 documented as of this encounter
--- OUTSIDE RECORDS SUMMARY | 2024-04-17 16:09 | XMS_ITS | Encounter Summary ---
Author Organization [facility] Address [address] [place] [address] Care Team Providers Care Heat Treater Head Name Role Phone Mattie Louise MD Primary Care Provider Unavaila [facility], Pcp Primary Care Provider Unavailabl e Mattie Louise MD Primary Care Provider [facility], Pcp Primary Care Provider Unavailabl e Encounter Details Date Type Department Care Team Description 10/01/2018 Orders Only Medicine/Pediatrics - [address] [address] Mattie Louise MD Lightheaded (Primary Dx); Hypothyroidism, unspecified type; History of anemia; Scoliosis, unspecified scoliosis type, unspecified spinal region; Back pain, unspecified back location, unspecified back pain laterality, unspecified chronicity Social History Tobacco Use Types Packs/Day Years Used Date Smoking Tobacco: Never Smokeless Tobacco: Never Alcohol Use Standard Drinks/Week Comments No 0 (1 standard drink = 0.6 oz pur e alcohol) Sex Assigned at Date Recorded Not on file documented as of this encounter Plan of Treatment Not on file documented as of this encounter Results * (ABNORMAL) CBC (AUTO DIFF PLATELET) (10/01/2018 9:19 AM EDT) WHITE BLOOD COUNT 3.9(L) 4.8 - 10.8 x10-3/uL 10/01/2018 12:52 PM EDT [facility] RED BLOOD COUNT 4.6 3.8 - 4.8 x10-6/uL 10/01/2018 12:52 PM EDT [facility] Hemoglobin 12.9 11.5 - 16.0 g/dL 10/01/2018 12:52 PM EDT [facility] Hematocrit 40.9 35 - 47 % 10/01/2018 12:52 PM EDT [facility] MEAN CORPUSCULAR VOLUME 89.1 79 - 98 fL 10/01/2018 12:52 PM EDT [facility] CORPUS[facility]ULAR HEMOGLOBIN 28.1 27 - 32 pg 10/01/2018 12:52 PM EDT [facility] MEAN CORPUSCULAR HGB CONC 31.5(L) 32 - 37 g/dL 10/01/2018 12:52 PM EDT [facility] RED CELL DISTRIBUTION WIDTH 12.3 11 - 15 % 10/01/2018 12:52 PM EDT [facility] 170 130 - 400 x10-3/uL 10/01/2018 12:52 PM EDT [facility] MEAN PLATELET VOLUME 10.8 7 - 11 fL 10/01/2018 12:52 PM EDT [facility] NRBC % AUTO 0.0 <1 % 10/01/2018 12:52 PM EDT [facility] NEUTROPHILS % 52.3 % 10/01/2018 12:52 PM EDT [facility] LYMPH % 35.2 % 10/01/2018 12:52 PM EDT [facility] MONO % 6.2 % 10/01/2018 12:52 PM EDT [facility] EOS % 5.2 % 10/01/2018 12:52 PM EDT [facility] BASO % 0.8 % 10/01/2018 12:52 PM EDT [facility] IMMATURE GRANULOCYTES % 0.3 % 10/01/2018 12:52 PM EDT [facility] NRBC # AUTO 0.00 <0.1 x10-3/uL 10/01/2018 12:52 PM EDT [facility] NEUT # 2.02 1.5 - 7.0 x10-3/uL 10/01/2018 12:52 PM EDT [facility] LYMPH # 1.36 1 - 5.0 x10-3/uL 10/01/2018 12:52 PM EDT [facility] MONO # 0.24 0.2 - 1.0 x10-3/uL 10/01/2018 12:52 PM EDT [facility] EOS # 0.20 0 - 0.5 x10-3/uL 10/01/2018 12:52 PM EDT [facility] BASO # 0.03 0 - 0.2 x10-3/uL 10/01/2018 12:52 PM EDT [facility] IMMATURE GRANULOCYTES # 0.01 0 - 0.03 x10-3/uL 10/01/2018 12:52 PM EDT [facility] 10/01/2018 9:19 AM EDT 10/01/2018 9:20 AM EDT Mattie Louise MD LAB [facility] * FERRITIN ASSAY (10/01/2018 9:19 AM EDT) [facility] FERRITIN 17 8 - 252 ng/mL 10/01/2018 1:27 PM EDT [facility] 10/01/2018 9:19 AM EDT 10/01/2018 9:20 AM EDT Mattie Louise MD LAB [facility] * COMPREHENSIVE METABOLIC PANEL (10/01/2018 9:19 AM EDT) Pathologist [facility] GLUCOSE 90 70 - 100 mg/dL 10/01/2018 1:03 PM EDT [facility] Comment:Reference range appl icable to fasting specimens only CREAT 0.80 0.5 - 1.1 mg/dL 10/01/2018 1:03 PM EDT [facility] GLOMERULAR FILTRATION RATE > 60 10/01/2018 1:03 PM EDT [facility] Comment: If patient is -Vincentian, multiply result by 1.21 Chronic Kidney Disease: < 60 ml/min/1.73 square meters Kidney Failure: < 15 ml/min/1.73 square meters NA 141 133 - 145 mmol/L 10/01/2018 1:03 PM EDT [facility] K 4.1 3.5 - 5.5 mmol/L 10/01/2018 1:03 PM EDT [facility] CL 107 96 - 110 mmol/L 10/01/2018 1:03 PM EDT [facility] CARBON DIOXIDE (CO2) 28 21 - 32 mmol/L 10/01/2018 1:03 PM EDT [facility] ANION GAP 6 3 - 11 10/01/2018 1:03 PM EDT [facility] CALCIUM 9.2 8.5 - 10.5 mg/dL 10/01/2018 1:03 PM EDT [facility] TOTAL PROTEIN (TP) 7.3 6.0 - 8.0 G/dL 10/01/2018 1:03 PM EDT [facility] Albumin 3.9 3.2 - 5.0 G/dL 10/01/2018 1:03 PM EDT [facility] SGOT 10 10 - 42 U/L 10/01/2018 1:03 PM EDT [facility] SGPT 14 10 - 60 U/L 10/01/2018 1:03 PM EDT [facility] Blood Urea Nitrogen 16 5 - 25 mg/dL 10/01/2018 1:27 PM EDT [facility] BILIRUBIN TOTAL 0.3 0.0 - 1.4 mg/dL 10/01/2018 1:27 PM EDT [facility] ALK PHOS 71 42 - 121 U/L 10/01/2018 1:27 PM EDT [facility] 10/01/2018 9:19 AM EDT 10/01/2018 9:20 AM EDT Mattie Louise MD LAB [facility] * (ABNORMAL) THYROID PROFILE W/TSH (10/01/2018 9:19 AM EDT) TSH CASCADE 4.52(H) 0.40 - 4.00 uIU/ml 10/01/2018 1:11 PM EDT [facility] 10/01/2018 9:19 AM EDT 10/01/2018 9:20 AM EDT Mattie Louise MD LAB [facility] * (ABNORMAL) VITAMIN B-12, ASSAY (10/01/2018 9:19 AM EDT) VITAMIN B12 219(L) 250 - 900 pg/mL 10/01/2018 1:27 PM EDT [facility] 10/01/2018 9:19 AM EDT 10/01/2018 9:20 AM EDT Mattie Louise MD LAB Performing Organization Address City/[facility]/ZIP Co de Phone Number [employer] * IRON/TIBC (10/01/2018 9:19 AM EDT) IRON (FE) 57 40 - 150 ug/dL 10/01/2018 1:03 PM EDT [facility] TOTAL IRON BINDING CAPACITY 342 250 - 450 ug/dL 10/01/2018 1:27 PM EDT [facility] % FE SATURATION 17 15 - 50 % 9 1:27 PM EDT [facility] 10/01/2018 9:19 AM EDT 10/01/2018 9:20 AM EDT Mattie Louise MD LAB Performing Organization Address [facility] Co de Phone Number [employer] documented in this encounter Visit Diagnoses Diagnosis Lightheaded- Primary Dizziness and giddiness Hypothyroidism, unspecified type History of anemia Personal history of diseases of blood and blood-forming organs Scoliosis, unspecified scoliosis type, unspecified spinal region Back pain, unspecified back location, unspecified back pain laterality, unspecified chronicity documented in this encounter Care Teams Heat Treater Head Relationship Specialty Start Date End Date Mattie Louise MD PCP - General Internal Medicine 02/16/15 07/06/20 Community, Pcp PCP - General Internal Medicine 07/07/20 12/10/20 Mattie Louise MD PCP - General Internal Medicine 12/11/20 03/02/21 Community, Pcp PCP - General Internal Medicine 03/03/21 documented as of this encounter
--- OUTSIDE RECORDS SUMMARY | 2024-04-17 16:09 | XMS_ITS | Encounter Summary ---
Author Organization [facility] Address [address] [place] [address] Care Team Providers Care Quiller Runner Name Role Phone Mattie Louise MD Primary Care Provider [facility], Pcp Primary Care Provider Mattie Tineo MD Primary Care Provider [facility], Pcp Primary Care Provider Unavailabl e Encounter Details Date Type Department Care Team Description 10/03/2018 Pt. Non Urgent Medical Question Medicine/Pediatrics - [address] [phone] Mattie Louise MD Social History Tobacco Use [...] can up my dose to be like Chester's (my daughter's)? She had trouble lowering her [...] on filedocumented in this encounter Care Teams Quiller Runner Relationship Specialty Start Date End Date Mattie Louise MD PCP - General Internal Medicine 02/16/15 07/06/20 Community, Pcp PCP - General Internal Medicine 07/07/20 12/10/20 Mattie Louise MD PCP - General Internal Medicine 12/11/20 03/02/21 Community, Pcp PCP - General Internal Medicine 03/03/21 documented as of this encounter
--- OUTSIDE RECORDS SUMMARY | 2024-04-17 16:09 | XMS_ITS | Encounter Summary ---
Author Organization [facility] Address [address] [place] [address] Care Team Providers Care Grain Distributor Name Role Phone Mattie Louise MD [facility], Pcp Primary Care Provider Unavailabl e Mattie Louise MD Primary Care Provider [facility], Pcp Primary Care Provider Unavailabl e Reason for Referral * Non CHALINO (Routine) - Unable to reach/declined Specialty Diagnoses / Procedures Referred By Contbrain t Referred To Contact Endocrinology Procedures REFERRAL TO ENDOCRINOLOGY Bella Valderrama PA-C [address] [place] [id number] Harinder Eisenberg MD Referral ID Status Reason Start Date Expiration Date V isits Requested Visits Authorized [id number] & [id number] 10/17-2 Unable to reach/decli luis alfredo 10/01/2018 10/01/2019 12 12 Encounter Details Date Type Department Care Team Description 10/01/2018 Orders Only Medicine/Pediatrics - [address] [phone] Bella Valderrama PA-C Social History Tobacco Use [...] filedocumented in this encounter Care Teams Grain Distributor Relationship Specialty Start Date End Date Mattie Louise MD PCP - General Internal Medicine 02/16/15 07/06/20 Community, Pcp PCP - General Internal Medicine 07/07/20 12/10/20 Mattie Louise MD PCP - General Internal Medicine 12/11/20 03/02/21 Community, Pcp PCP - General Internal Medicine 03/03/21 documented as of this encounter
--- OUTSIDE RECORDS SUMMARY | 2024-04-17 16:09 | XMS_ITS | Encounter Summary ---
Author Organization [facility] Address [address] [place] [address] Care Team Providers Care Truck Sales Representative Name Role Phone Odell Gomes MD Primary Care Provider Saman Villarreal MD Primary Care Provider Unavail able Mattie Louise MD Primary Care Provider Unavaila [facility], Pcp Primary Care Provider Unavailabl e Mattie Louise MD Primary Care Provider [facility], Pcp Primary Care Provider Unavailabl e Encounter Details Date Type Department Care Team Description 09/20/2013 Pt. Non Urgent Medic al Question Medicine/Pediatrics - [address] [phone] Odell Gomes MD Social History Tobacco Use [...] so so much. Brie Curry my cell [phone] documented in this encounter Plan of Treatment Not on file documented as of this encounter Visit Diagnoses Not on filedocumented in this encounter Care Teams Truck Sales Representative Relationship Specialty Start Date End Date [...]
--- OUTSIDE RECORDS SUMMARY | 2024-04-17 16:09 | XMS_ITS | Encounter Summary ---
Author Organization [facility] Address [address] [place] [address] Care Team Providers Care Hearing Instrument Specialist Name Role Phone Mattie Louise MD Primary Care Provider Unavaila [facility], Pcp Primary Care Provider Unavailabl e Mattie Louise MD Primary Care Provider [facility], Pcp Primary Care Provider Unavailabl e Encounter Details Date Type Department Care Team Description 12/14/2015 Controlled Substance Plan Medical Records [address] [place] [id number] Abstract, Provider Social History Tobacco Use Types [...] on filedocumented in this encounter Care Teams Hearing Instrument Specialist Relationship Specialty Start Date End Date Mattie Louise MD PCP - General Internal Medicine 02/16/15 07/06/20 Community, Pcp PCP - General Internal Medicine 07/07/20 12/10/20 Mattie Louise MD PCP - General Internal Medicine 12/11/20 03/02/21 Community, Pcp PCP - General Internal Medicine 03/03/21 documented as of this encounter
--- OUTSIDE RECORDS SUMMARY | 2024-04-17 16:09 | XMS_ITS | Encounter Summary ---
Author Organization [facility] Address [address] [place] [address] Care Team Providers Care Member Service Specialist Name Role Phone Mattie Louise MD Primary Care Provider Unavaila [facility], Pcp Primary Care Provider Unavailabl e Mattie Louise MD Primary Care Provider Unavaila [facility], Pcp Primary Care Provider Unavailabl e Reason for Visit * Reason Onset Date Comments Provider Call Back 08/29/2018 Encounter Details Date Type Department Care Team Description 08/29/2018 Telephone Dermatology - [address] [phone] Edilia Limon PA-C Provider Call Back Social [...] for this procedure, and her Insurance company ([email or web address]) told the patient that the skin tags were considered cosmetic, but that you could appeal this stating that it was medically necessary for the patient to have them removedas they were constantly getting cut/open and to avoid infection. documented in this encounter Plan of Treatment Not on file documented as of this encounter Visit Diagnoses Not on filedocumented in this encounter Care Teams Member Service Specialist Relationship Specialty Start Date End Date Mattie Louise MD PCP - General Internal Medicine 02/16/15 07/06/20 [facility], Pcp PCP - General Internal Medicine 07/07/20 12/10/20 Mattie Louise MD PCP - General Internal Medicine 12/11/20 03/02/21 Community, Pcp PCP - General Internal Medicine 03/03/21 documented as of this encounter
[2024-04-17 16:23] LABS: Free T4 (Free Thyroxine) 0.86 ng/dL (0.71-1.85); Thyroid Stimulating Hormone 4.24 uIU/mL (0.32-4.0)
== END 2024-04-17 13:47 | disposition home or self-care (01) ==
LOC: HO.LAB 13:46
PROVIDERS: PCP Internal Medicine; Visit Provider Student in an Organized Health Care Education/Training Program
DX: E04.2 Nontoxic multinodular goiter (principal)
CPT/HCPCS: 36415; 84439; 84443

== ENCOUNTER 2024-05-01 13:50 | Outpatient (REF) | payer OTHER, SELFPAY ==
--- NOTE | ~2024-05-01 | CT_ITS ---
EXAMINATION: CT ABDOMEN PELVIS WITH IV CONTRAST HISTORY: R14.0 - Abdominal distension (gaseous) COMPARISON: There are no prior studies for comparison. TECHNIQUE: CT scan of the abdomen and pelvis was performed following administration of 85 mL Omnipaque 350 using standard departmental protocol. Coronal and sagittal reformatted images were generated and reviewed. The patient received oral contrast material. This CT exam was performed with one or more of the following dose reduction techniques: automated exposure control, adjustment of the mA and/or kV according to patient size, use of iterative reconstruction technique. DLP: 457 mGy-cm FINDINGS: LOWER CHEST: The visualized lung bases are clear. There is no pleural effusion. CARDIOVASCULATURE: The heart is normal in size. There is no pericardial effusion. LIVER: The liver is normal in size and contour. No liver mass is identified. The hepatic and portal veins are patent. GALLBLADDER / BILE DUCTS: The gallbladder is unremarkable. There is no intra or extrahepatic biliary ductal dilatation. SPLEEN: The spleen is normal in size. No focal splenic lesion is identified. PANCREAS: The pancreas is unremarkable in appearance. ADRENAL GLANDS: Within normal limits. KIDNEYS/RETROPERITONEUM: No renal calculi are identified. There is no hydronephrosis. No renal masses are identified. LYMPH NODES: No abdominal or pelvic lymphadenopathy. VASCULATURE: The abdominal aorta is normal in caliber. MESENTERY/PERITONEUM: No free fluid. No masses. There is no free intraperitoneal gas. STOMACH: The stomach is collapsed, limiting evaluation. SMALL BOWEL: The small bowel is normal in caliber. COLON: There is a moderate to large amount of stool throughout the colon. APPENDIX: The appendix is not seen, however no inflammatory changes are seen adjacent to the cecum. URINARY BLADDER/PELVIC ORGANS: The urinary bladder is collapsed, limiting evaluation. The uterus is unremarkable. BONES / SOFT TISSUES: No suspicious bony or soft tissue abnormalities. CT/CT abdomen pelvis w IV con IMPRESSION: Moderate to large amount of stool throughout the colon. Electronically signed by: Konstantin Mcdowell MD 05/01/2024 02:37 PM [facility]
[2024-05-01] MEDS: iohexoL 350 MG/ML 100 ML INFUS..BTL IV (14:25)
--- OUTSIDE RECORDS SUMMARY | 2024-05-01 17:00 | XMS_ITS | Clinical Summary ---
Author Organization [facility] Address [address] [place] [address] Care Team Providers Care Waterworks Chief Engineer Name Role Phone Mattie Raymundo MD Primary Care Provider [phone] Allergies Active Allergy Reactions Criticality Noted Date [...] Type Department Care Team Description 04/08/[address] [facility] Heart & Vascular [place] at [address] [phone] Kartik Freitas PA-C from Last 3 Months Social History Tobacco [...] Info) Description 05/10/2024 10:30 AM EST Appointment [facility] Heart & Vascular [place] at [address] [place] [phone] Kartik Freitas PA-C [address] [place] [address] Health Maintenance Due Date Last Done Comments [...] ( - 2023-25 season) 2023 Care Teams Waterworks Chief Engineer Relationship Specialty Start Date End Date Mattie Raymundo MD [address] [place] [phone] PCP - General Internal Medicine 10/18/23
--- OUTSIDE RECORDS SUMMARY | 2024-05-01 17:00 | XMS_ITS | Encounter Summary ---
Author Organization [facility] Address [address] [place] [address] Care Team Providers Care Sort Supervisor Name Role Phone Mattie Raymundo MD Primary Care Provider [phone] Encounter Details Date Type Department Care Team ([facility] Contact Info) Description 04/08/2024 Refill [facility] Heart & Vascular [place] at [facility] - Cardiology [address] [place] [address] Kartik Freitas PA-C [address] [place] [address] Social History Tobacco Use Types Packs/Day Years [...] Info) Description 05/10/2024 10:30 AM EST Appointment [facility] Heart & Vascular [place] at [facility] - Cardiology [address] [place] [address] Kartik Freitas PA-C [address] [place] [address] documented as of this encounter Visit Diagnoses Diagnosis POTS (postural orthostatic tachycardia syndrome) Unspecified tachycardia documented in this encounter Care Teams Sort Supervisor Relationship Specialty Start Date End Date Mattie Raymundo MD [address] [place] [phone] PCP - General Internal Medicine 10/18/23 documented as of this encounter
== END 2024-05-01 13:51 | disposition home or self-care (01) ==
LOC: HO.CT 13:50
PROVIDERS: PCP Internal Medicine; Visit Provider Internal Medicine
DX: R14.0 Abdominal distension (gaseous) (principal); R61 Generalized hyperhidrosis; R10.9 Unspecified abdominal pain; R19.8 Other specified symptoms and signs involving the digestive system and abdomen
CPT/HCPCS: 74177; Q9967

== ENCOUNTER → 2024-05-01 13:51 | Outpatient (BNV) | payer OTHER, SELFPAY | PROVIDERS: PCP Internal Medicine; Visit Provider Radiology Diagnostic Radiology | DX: K56.41 Fecal impaction (principal) | CPT/HCPCS: 74177 ==

== ENCOUNTER 2024-05-08 07:58 | Outpatient (REF) | payer OTHER, SELFPAY ==
--- OUTSIDE RECORDS SUMMARY | 2024-05-08 08:05 | XMS_ITS | Clinical Summary ---
Author Organization [facility] Address [address] [place] [address] Care Team Providers Care Gravity Flow Irrigator Name Role Phone Mattie Raymundo MD Primary Care Provider [phone] Allergies Active Allergy Reactions Criticality Noted Date [...] hours 60 tablet 5 04/08/2024 10/05/2024 Active Encounters Date Type Department Care Team Description 04/08/2024 Refill [facility] Heart & Vascular [place] at [facility] - Cardiology [address] [place] [address] Kartik Freitas PA-C from Last 3 Months [...] 11/14/2023 9:34 AM EDT Plan of Treatment Health Maintenance Due [...] 2) 2014 Influenza Vaccine 10/05/2023 COVID-19 Vaccine (2023- season) 2023 Care Teams Gravity Flow Irrigator Relationship Specialty Start Date End Date Mattie Raymundo MD [address] [place] [phone] PCP - General Internal Medicine 10/18/23
--- OUTSIDE RECORDS SUMMARY | 2024-05-08 08:05 | XMS_ITS | Encounter Summary ---
Author Organization [email or web address] [facility] Address [address] [place] [address] Care Team Providers Care Bulk Gas Specialist Name Role Phone Mattie Louise MD Primary Care Provider Unavaila [facility], Pcp Primary Care Provider Unavailabl e Mattie Louise MD Primary Care Provider Unavaila [facility], Pcp Primary Care Provider Unavailabl e Encounter Details Date Type Department Care Team Description 05/23/2016 Orders Only Medicine/Pediatrics - [address] [phone] Bella Valderrama PA-C Leukopenia, unspecified type (Primary [...] - 85 % 08/30/2016 1:15 PM EDT [facility] LYMPHOCYTE 42 15 - 48 % 08/30/2016 1:15 PM EDT [facility] ATYPICAL LYMPHOCYTE 3 1.8 - 4.6 % 08/30/2016 1:15 PM EDT [facility] MONOCYTE 6 0 - 12 % 08/30/2016 1:15 PM EDT [facility] EOSINOPHIL 5 0 - 5 % 08/30/2016 1:15 PM EDT [facility] RBC MORPHOLOGY NORMAL 08/30/2016 1:15 PM EDT [facility] BASOPHIL 0 0 - 2 % 08/30/2016 1:22 PM EDT [facility] 08/30/2016 9:33 AM EDT 08/30/2016 9:33 AM EDT Bella STALLINGS-C LAB Performing Organization Address City/[facility]/ZIP Co de Phone Number [facility] * (ABNORMAL) AUTOMATED HEMOGRAM PLATELET [...] Co de Phone Number [facility] [address] [place] [address] documented in this encounter Visit Diagnoses Diagnosis Leukopenia, unspecified type- Primary documented in this encounter Care Teams Bulk Gas Specialist Relationship Specialty Start Date End Date Mattie Louise MD PCP - General Internal Medicine 02/16/15 07/06/20 [facility], Pcp PCP - General Internal Medicine 07/07/20 12/10/20 Mattie Louise MD PCP - General Internal Medicine 12/11/20 03/02/21 [facility], Pcp PCP - General Internal Medicine 03/03/21 documented as of this encounter
--- OUTSIDE RECORDS SUMMARY | 2024-05-08 08:05 | XMS_ITS | Encounter Summary ---
Author Organization [facility] Address [address] [place] [address] Care Team Providers Care Parole Officer Name Role Phone Odell Gomes MD Primary Care Provider Saman Villarreal MD Primary Care Provider Unavail able Mattie Louise MD Primary Care Provider Unavaila [facility], Pcp Primary Care Provider Unavailabl e Mattie Louise MD Primary Care Provider [facility], Pcp Primary Care Provider Unavailabl e Encounter Details Date Type Department Care Team Description 01/27/2014 Pt. Non Urgent Medic al Question Medicine/Pediatrics - [address] [phone] Odell Gomes MD Social History Tobacco Use [...] do not have her email information on [employer], so I thought itwas best to contact [...] on filedocumented in this encounter Care Teams Parole Officer Relationship Specialty Start Date End Date Odell [...]
--- OUTSIDE RECORDS SUMMARY | 2024-05-08 08:05 | XMS_ITS | Encounter Summary ---
Author Organization [employer] [facility] Address [address] [place] [address] Care Team Providers Care Shank Scourer Name Role Phone Mattie Louise MD Primary Care Provider Unavaila [facility], Pcp Primary Care Provider Unavailabl e Mattie Louise MD Primary Care Provider [facility], Pcp Primary Care Provider Unavailabl e Encounter Details Date Type Department Care Team Description 03/31/2017 Orders Only Medicine/Pediatrics - [address] [phone] Carlos Cordero PA-C Social History Tobacco Use [...] on filedocumented in this encounter Care Teams Shank Scourer Relationship Specialty Start Date End Date Mattie Louise MD PCP - General Internal Medicine 02/16/15 07/06/20 [facility], Pcp PCP - General Internal Medicine 07/07/20 12/10/20 Mattie Louise MD PCP - General Internal Medicine 12/11/20 03/02/21 [facility], Pcp PCP - General Internal Medicine 03/03/21 documented as of this encounter
--- OUTSIDE RECORDS SUMMARY | 2024-05-08 08:05 | XMS_ITS | Encounter Summary ---
Author Organization [email or web address] [facility] Address [address] [place] [address] Care Team Providers Care Wireless Communications Engineer Name Role Phone Odell Gomes MD Primary Care Provider Kiraab Saman Malik MD Primary Care Provider Unavail able Mattie Louise MD Primary Care Provider Unavaila [facility], Pcp Primary Care Provider Unavailabl e Mattie Louise MD [facility], Pcp Primary Care Provider Unavailabl e Encounter Details Date Type Department Care Team Description 08/06/2013 PARKING OFFICER/[facility] Report Medical Records [address] [place] [address] Abstract, Provider Social History Tobacco Use Types [...] on filedocumented in this encounter Care Teams Wireless Communications Engineer Relationship Specialty Start Date End Date Odell Gomes MD PCP - General Internal Medicine 07/08/13 03/05/14 Saman Gomes MD PCP - General Internal Medicine 03/06/14 02/15/15 Mattie Louise MD PCP - General Internal Medicine 02/16/15 07/06/20 [facility], [facility]cp PCP - General Internal Medicine 07/07/20 12/10/20 Mattie Louise MD PCP - General Internal Medicine 12/11/20 03/02/21 [facility], Pcp PCP - General Internal Medicine 03/03/21 documented as of this encounter
--- OUTSIDE RECORDS SUMMARY | 2024-05-08 08:05 | XMS_ITS | Encounter Summary ---
Author Organization [facility] Address [address] [place] [address] Care Team Providers Care Outside Sales Professional Name Role Phone Mattie Louise MD Primary [facility], Pcp Primary Care Provider Unavailabl e Mattie Louise MD Primary Care Provider [facility], Pcp Primary Care Provider Unavailabl e Reason for Visit * Reason Comments E-prescribe Rx Request Encounter Details Date Type Department Care Team Description 08/18/2016 Refill Medicine/Pediatrics - [address] [address] Sven Cano PA-C E-prescribe Rx Request Social History Tobacco [...] unspecified documented in this encounter Care Teams Outside Sales Professional Relationship Specialty Start Date End Date Mattie Louise MD PCP - General Internal Medicine 02/16/15 07/06/20 [facility], Pcp PCP - General Internal Medicine 07/07/20 12/10/20 Mattie Louise MD PCP - General Internal Medicine 12/11/20 03/02/21 [facility], Pcp PCP - General Internal Medicine 03/03/21 documented as of this encounter
--- OUTSIDE RECORDS SUMMARY | 2024-05-08 08:05 | XMS_ITS | Encounter Summary ---
Author Organization [employer] [facility] Address [address] [place] [address] Care Team Providers Care Network Architect Name Role Phone Saman Gomes MD Primary Care Provider Unavail able Mattie Louise MD Primary Care Provider Unavaila [facility], Pcp Primary Care Provider Unavailabl e Mattie Louise MD Primary Care Provider Unavaila [facility], Pcp Primary Care Provider Unavailabl e Encounter Details Date Type Department Care Team Description 10/08/2014 HOSE SUSPENDER CUTTER/[employer] Report Medical Records [address] [place] [address] Abstract, Provider Social History Tobacco Use Types [...] on filedocumented in this encounter Care Teams Network Architect Relationship Specialty Start Date End Date Saman [...]
--- OUTSIDE RECORDS SUMMARY | 2024-05-08 08:05 | XMS_ITS | Encounter Summary ---
Author Organization [facility] Address [address] [place] [address] Care Team Providers Care Material Checker Name Role Phone Mattie Raymundo MD Primary Care Provider [phone] Encounter Details Date Type Department Care Team ([facility] Contact Info) Description 04/08/2024 Refill [facility] Heart & Vascular [place] at [facility] - Cardiology [address] [place] [address] Kartik Freitas PA-C [address] [place] [address] Social History Tobacco Use Types Packs/Day Years [...] tachycardia documented in this encounter Care Teams Material Checker Relationship Specialty Start Date End Date Mattie Raymundo MD [address] [place] [phone] PCP - General Internal Medicine 10/18/23 documented as of this encounter
--- OUTSIDE RECORDS SUMMARY | 2024-05-08 08:05 | XMS_ITS | Clinical Summary ---
Author Organization [facility] Address [address] [place] [address] Care Team Providers Care Major Account Manager Name Role Phone [facility], Pcp Primary Care Provider Unavailabl e Allergies Active Allergy Reactions Severity Noted Date Comments Benzyl Tlr-Rspnwebdthopkdqj-Gbgxpgnim Anaphylaxis 07/12/2013 Medications Medication Sig Dispensed Refills [...] Bottle 5 11/01/2017 Active vitamin D (ERGOCALCIFEROL) 45816 units capsule TAKE ONE CAPSULE BY MOUTH [...] mouth daily. 90 Tab 1 01/07/2020 Active [id number]-BQIXV INE 50-325-40 MG OR TABS (FIORICET, ESGIC) [...] (weakness in shoulder s is aura)-Neuro at [facility] 07/12/2013 Hypothyroidism 07/12/2013 Anxiety 07/12/2013 Seizure [...] HEPATITIS C SCREENING Completed 08/22/2013 Care Teams Major Account Manager Relationship Specialty Start Date End Date Community, Pcp PCP - General Internal Medicine 03/03/21
--- OUTSIDE RECORDS SUMMARY | 2024-05-08 08:05 | XMS_ITS | Encounter Summary ---
Author Organization [facility] Address [address] [place] [address] Care Team Providers Care Band Nailer Name Role Phone Mattie Louise MD Primary Care Provider Unavaila [facility], Pcp Primary Care Provider Unavailabl e Mattie Louise MD Primary Care Provider [facility], Pcp Primary Care Provider Unavailabl e Encounter Details Date Type Department Care Team Description 01/04/2019 Orders Only Medical Records [address] [place] [address] Mattie Louise MD Social History Tobacco Use [...] on filedocumented in this encounter Care Teams Band Nailer Relationship Specialty Start Date End Date Mattie Louise MD PCP - General Internal Medicine 02/16/15 07/06/20 [facility], Pcp PCP - General Internal Medicine 07/07/20 12/10/20 Mattie Louise MD PCP - General Internal Medicine 12/11/20 03/02/21 [facility], Pcp PCP - General Internal Medicine 03/03/21 documented as of this encounter
--- OUTSIDE RECORDS SUMMARY | 2024-05-08 08:05 | XMS_ITS | Encounter Summary ---
Author Organization [employer] [facility] Address [address] [place] [address] Care Team Providers Care Armature Winder Repair Helper Name Role Phone Mattie Louise MD Primary Care Provider Unavaila [facility], Pcp Primary Care Provider Unavailabl e Mattie Louise MD Primary [facility], Pcp Primary Care Provider Unavailabl e Encounter Details Date Type Department Care Team Description 07/06/2018 PNO Controlled Substance Contract Medical Records [address] [place] [phone] Abstract, Provider Social History Tobacco Use Types [...] on filedocumented in this encounter Care Teams Armature Winder Repair Helper Relationship Specialty Start Date End Date Mattie Louise MD PCP - General Internal Medicine 02/16/15 07/06/20 [facility], Pcp PCP - General Internal Medicine 07/07/20 12/10/20 Mattie Louise MD PCP - General Internal Medicine 12/11/20 03/02/21 [facility], Pcp PCP - General Internal Medicine 03/03/21 documented as of this encounter
--- OUTSIDE RECORDS SUMMARY | 2024-05-08 08:05 | XMS_ITS | Encounter Summary ---
Author Organization [facility] Address [address] [place] [address] Care Team Providers Care Form Raiser Name Role Phone Odell Gomes MD Primary Care Provider Saman Villarreal MD Primary Care Provider Unavail able Mattie Louise MD Primary Care Provider Unavaila [facility], Pcp Primary Care Provider Unavailabl e Mattie Louise MD Primary Care Provider [facility], Pcp Primary Care Provider Unavailabl e Encounter Details Date Type Department Care Team Description 09/20/2013 Pt. Non Urgent Medic al Question Medicine/Pediatrics - [address] [phone] Odell Gomes MD Social History Tobacco Use [...] so so much. Brie Curry my cell [phone] documented in this encounter Plan of Treatment Not on file documented as of this encounter Visit Diagnoses Not on filedocumented in this encounter Care Teams Form Raiser Relationship Specialty Start Date End Date Odell [...]
--- OUTSIDE RECORDS SUMMARY | 2024-05-08 08:05 | XMS_ITS | Encounter Summary ---
Author Organization [employer] [facility] Address [address] [place] [address] Care Team Providers Care Environmental Engineering Aide Name Role Phone Saman Gomes MD Primary Care Provider Unavail able Mattie Louise MD Primary Care Provider Unavaila [facility], Pcp Primary Care Provider Unavailabl e Mattie Louise MD [facility] Primary Care Provider Unavailabl e Encounter Details Date Type Department Care Team Description 09/24/2014 Pt. Non Urgent Medic al Question Medicine/Pediatrics - [address] [phone] Saman Gomes MD Social History Tobacco Use [...] (If you have any questions please call [phone]) documented in this encounter Plan of Treatment Not on file documented as of this encounter Visit Diagnoses Not on filedocumented in this encounter Care Teams Environmental Engineering Aide Relationship Specialty Start Date End Date Saman [...]
--- OUTSIDE RECORDS SUMMARY | 2024-05-08 08:05 | XMS_ITS | Encounter Summary ---
Author Organization [employer] [facility] Address [address] [place] [address] Care Team Providers Care Picc Nurse Name Role Phone Mattie Louise MD Primary Care Provider Unavaila [facility], Pcp Primary Care Provider Unavailabl e Mattie Louise MD Primary Care Provider [facility], Pcp Primary Care Provider Unavailabl e Encounter Details Date Type Department Care Team Description 10/27/2015 Orders Only Medicine/Pediatrics - [address] [address] Carlos Cordero PA-C Social History Tobacco Use [...] on filedocumented in this encounter Care Teams Picc Nurse Relationship Specialty Start Date End Date Mattie Louise MD PCP - General Internal Medicine 02/16/15 07/06/20 [facility], Pcp PCP - General Internal Medicine 07/07/20 12/10/20 Mattie Louise MD PCP - General Internal Medicine 12/11/20 03/02/21 [facility], Pcp PCP - General Internal Medicine 03/03/21 documented as of this encounter
--- OUTSIDE RECORDS SUMMARY | 2024-05-08 08:05 | XMS_ITS | Encounter Summary ---
Author Organization [facility] Address [address] [place] [address] Care Team Providers Care Family Readiness Support Assistant Name Role Phone Mattie Louise MD Primary Care Provider [facility], Pcp Primary Care Provider Unavailabl e Mattie Louise MD Primary Care Provider [facility], Pcp Primary Care Provider Unavailabl e Encounter Details Date Type Department Care Team Description 08/30/2016 Pt. Non Urgent Medic al Question Medicine/Pediatrics - [address] [address] Bella Valderrama PA-C Social History Tobacco Use Types Packs/Day Years Used Date Smoking Tobacco: Never Smokeless Tobacco: Never Alcohol Use Standard Drinks/Week Comments No 0 (1 standard drink = 0.6 oz pur e alcohol) Sex Assigned at Date Recorded Not on file documented as of this encounter Progress Notes * Daniela Trevino L.P.N. - 08/30/2016 4:22 PM EDTFrom: Bire Curry To: Bella Valderrama PA-C Sent: 08/30/2016 3:43 PM EDT Subject: test results Dear Dr. Valderrama, Do you have my Iron, B12 and the rest of the results back as well? Thank you so much. Brie documented in this encounter Plan of Treatment Not on file documented as of this encounter Visit Diagnoses Not on filedocumented in this encounter Care Teams Family Readiness Support Assistant Relationship Specialty Start Date End Date Mattie Louise MD PCP - General Internal Medicine 02/16/15 07/06/20 [facility], Pcp PCP - General Internal Medicine 07/07/20 12/10/20 Mattie oLuise MD PCP - General Internal Medicine 12/11/20 03/02/21 [facility], Pcp PCP - General Internal Medicine 03/03/21 documented as of this encounter
--- OUTSIDE RECORDS SUMMARY | 2024-05-08 08:05 | XMS_ITS | Encounter Summary ---
Author Organization [employer] [facility] Address [address] [place] [address] Care Team Providers Care Photoengraving Machine Operator/Tender Name Role Phone Mattie Louise MD Primary Care Provider Unavaila [facility], Pcp Primary Care Provider Unavailabl e Mattie Louise MD Primary Care Provider Unavaila [facility], Pcp Primary Care Provider Unavailabl e Encounter Details Date Type Department Care Team Description 05/11/2020 [facility] Medical Records [address] [place] [id number] Abstract, Provider Social History Tobacco Use Types [...] on filedocumented in this encounter Care Teams Photoengraving Machine Operator/Tender Relationship Specialty Start Date End Date Mattie Louise MD PCP - General Internal Medicine 02/16/15 07/06/20 [facility], Pcp PCP - General Internal Medicine 07/07/20 12/10/20 Mattie Louise MD PCP - General Internal Medicine 12/11/20 03/02/21 [facility], Pcp PCP - General Internal Medicine 03/03/21 documented as of this encounter
--- OUTSIDE RECORDS SUMMARY | 2024-05-08 08:05 | XMS_ITS | Encounter Summary ---
Author Organization [employer] [facility] Address [address] [place] [address] Care Team Providers Care Patent Agent Name Role Phone Odell Gomes MD Primary Care Provider Kiraab Saman Malik MD Primary Care Provider Unavail able Mattie Louise MD Primary Care Provider Unavaila [facility], Pcp Primary Care Provider Unavailabl e Mattie Louise MD Primary Care Provider [facility], Pcp Primary Care Provider Unavailabl e Encounter Details Date Type Department Care Team Description 08/29/2013 Controlled Substance Contract with Plan Medical Records [address] [place] [id number] Abstract, Provider Social History Tobacco Use Types [...] on filedocumented in this encounter Care Teams Patent Agent Relationship Specialty Start Date End Date Odell [...]
--- OUTSIDE RECORDS SUMMARY | 2024-05-08 08:05 | XMS_ITS | Encounter Summary ---
Author Organization [facility] Address [address] [place] [address] Care Team Providers Care Tennis Professional Name Role Phone Mattie Louise MD Primary Care Provider Unavaila [facility], Pcp Primary Care Provider Unavailabl e Mattie Louise MD Primary Care Provider [facility], Pcp Primary Care Provider Unavailabl e Encounter Details Date Type Department Care Team Description 10/01/2018 Orders Only Medicine/Pediatrics - [address] [phone] Mattie Louise MD Lightheaded (Primary Dx); Hypothyroidism, [...] 98 fL 10/01/2018 12:52 PM EDT [facility] CORP[facility] HEMOGLOBIN 28.1 27 - 32 pg 10/01/2018 12:52 PM EDT [facility] HGB CONC 31.5(L) 32 - 37 g/dL 10/01/2018 12:52 PM EDT [facility] RED CELL DISTRIBUTION WIDTH 12.3 11 - 15 % 10/01/2018 12:52 PM [facility] 170 130 - 400 x10-3/uL 10/01/2018 12:52 PM EDT [facility] ME[facility] PLATELET VOLUME 10.8 7 - 11 fL 10/01/2018 12:52 PM EDT [facility] NRBC % AUTO 0.0 <1 % 10/01/2018 12:52 PM EDT [facility] NEUTROPHILS % 52.3 % 10/01/2018 12:52 PM EDT [facility] LYMPH % 35.2 % 10/01/2018 12:52 [...] AM EDT Mattie Louise MD LAB [facility] * FERRITIN ASSAY (10/01/2018 9:19 AM EDT) [facility] FERRITIN 17 8 - 252 ng/mL 10/01/2018 1:27 PM EDT [facility] 10/01/2018 9:19 AM EDT 10/01/2018 9:20 AM EDT Mattie Louise MD LAB [facility] * COMPREHENSIVE METABOLIC PANEL (10/01/2018 9:19 AM EDT) Pathologist [facility] GLUCOSE 90 70 - 100 mg/dL 10/01/2018 1:03 PM EDT [facility] Comment:Reference range appl icable to fasting specimens only CREAT 0.80 0.5 - 1.1 mg/dL 10/01/2018 1:03 PM EDT [facility] GLOMERULAR FILTRATION RATE > 60 10/01/2018 1:03 PM EDT [facility] Comment: If patient is -[place], multiply result by 1.21 Chronic Kidney Disease: [...] AM EDT Mattie Louise MD LAB [facility] * (ABNORMAL) THYROID PROFILE W/TSH (10/01/2018 9:19 AM EDT) TSH CASCADE 4.52(H) 0.40 - 4.00 uIU/ml 10/01/2018 1:11 PM EDT [facility] 10/01/2018 9:19 AM EDT 10/01/2018 9:20 AM EDT Mattie Louise MD LAB [facility] * (ABNORMAL) VITAMIN B-12, ASSAY (10/01/2018 9:19 AM EDT) VITAMIN B12 219(L) 250 - 900 pg/mL 10/01/2018 1:27 PM EDT [facility] 10/01/2018 9:19 AM EDT 10/01/2018 9:20 AM EDT Mattie Louise MD LAB Performing Organization Address City/[facility]/ZIP Co de Phone Number [employer] * IRON/TIBC (10/01/2018 9:19 AM EDT) IRON (FE) 57 40 - 150 ug/dL 10/01/2018 1:03 PM EDT [facility] TOTAL IRON BINDING CAPACITY 342 250 - 450 ug/dL 10/01/2018 1:27 PM EDT [facility] % FE SATURATION 17 15 - 50 % 9 1:27 PM EDT [facility] 10/01/2018 9:19 AM EDT 10/01/2018 9:20 AM EDT Mattie Louise MD LAB Performing Organization Address [facility] Co de Phone Number [employer] documented in this encounter Visit Diagnoses Diagnosis Lightheaded- Primary Dizziness and giddiness Hypothyroidism, unspecified type History of anemia Personal history of diseases of blood and blood-forming organs Scoliosis, unspecified scoliosis type, unspecified spinal region Back pain, unspecified back location, unspecified back pain laterality, unspecified chronicity documented in this encounter Care Teams Tennis Professional Relationship Specialty Start Date End Date Mattie Louise MD PCP - General Internal Medicine 02/16/15 07/06/20 [facility], Pcp PCP - General Internal Medicine 07/07/20 12/10/20 Mattie Louise MD PCP - General Internal Medicine 12/11/20 03/02/21 [facility], Pcp PCP - General Internal Medicine 03/03/21 documented as of this encounter
--- OUTSIDE RECORDS SUMMARY | 2024-05-08 08:05 | XMS_ITS | Encounter Summary ---
Author Organization [facility] Address [address] [place] [address] Care Team Providers Care Final Assembler Name Role Phone Mattie Louise MD Primary Care Provider Unavaila [facility], Pcp Primary Care Provider Unavailabl e Mattie Louise MD Primary Care Provider Unavaila [facility], Pcp Primary Care Provider Unavailabl e Encounter Details Date Type Department Care Team Description 03/04/2016 [facility] Medical Records [address] [place] [id number] Abstract, Provider Social History Tobacco Use Types [...] on filedocumented in this encounter Care Teams Final Assembler Relationship Specialty Start Date End Date Mattie Louise MD PCP - General Internal Medicine 02/16/15 07/06/20 [facility], Pcp PCP - General Internal Medicine 07/07/20 12/10/20 Mattie Louise MD PCP - General Internal Medicine 12/11/20 03/02/21 [facility], Pcp PCP - General Internal Medicine 03/03/21 documented as of this encounter
--- OUTSIDE RECORDS SUMMARY | 2024-05-08 08:05 | XMS_ITS | Encounter Summary ---
Author Organization [facility] Address [address] [place] [address] Care Team Providers Care Manager Business Continuity Name Role Phone Mattie Louise MD Primary Care Provider [facility], Pcp Primary Care Provider Unavailabl e Mattie Louise MD Primary Care Provider [facility], Pcp Primary Care Provider Unavailabl e Encounter Details Date Type Department Care Team Description 03/21/2016 Pt. Non Urgent Medical Question Medicine/Pediatrics - [address] [phone] Mattie Louise MD Social History Tobacco Use [...] on filedocumented in this encounter Care Teams Manager Business Continuity Relationship Specialty Start Date End Date Mattie Louise MD PCP - General Internal Medicine 02/16/15 07/06/20 [facility], Pcp PCP - General Internal Medicine 07/07/20 12/10/20 Mattie Louise MD PCP - General Internal Medicine 12/11/20 03/02/21 [facility], Pcp PCP - General Internal Medicine 03/03/21 documented as of this encounter
--- OUTSIDE RECORDS SUMMARY | 2024-05-08 08:05 | XMS_ITS | Encounter Summary ---
Author Organization [facility] Address [address] [place] [address] Care Team Providers Care Geothermal Heat Pump Machinist Name Role Phone Mattie Louise MD Primary Care Provider [facility], Pcp Primary Care Provider Unavailabl e Mattie Louise MD Primary Care Provider [facility], Pcp Primary Care Provider Unavailabl e Encounter Details Date Type Department Care Team Description 01/14/2019 Pt. Non Urgent Medical Question Medicine/Pediatrics - [address] [phone] Mattie Louise MD Social History Tobacco Use [...] for me. But Dr. Perez will contact [facility] where i had my ultrasound of [...] on filedocumented in this encounter Care Teams Geothermal Heat Pump Machinist Relationship Specialty Start Date End Date Mattie Louise MD PCP - General Internal Medicine 02/16/15 07/06/20 [facility], Pcp PCP - General Internal Medicine 07/07/20 12/10/20 Mattie Louise MD PCP - General Internal Medicine 12/11/20 03/02/21 [facility], Pcp PCP - General Internal Medicine 03/03/21 documented as of this encounter
--- OUTSIDE RECORDS SUMMARY | 2024-05-08 08:05 | XMS_ITS | Encounter Summary ---
Author Organization [employer] [facility] Address [address] [place] [address] Care Team Providers Care Overseer Kosher Kitchen Name Role Phone Mattie Louise MD Primary Care Provider Unavaila [facility], Pcp Primary Care Provider Unavailabl e Mattie Louise MD [facility], Pcp Primary Care Provider Unavailabl e Encounter Details Date Type Department Care Team Description 05/26/2017 [facility] Controlled Substance Contract Medical Records [address] [place] [id number] Abstract, Provider Social History Tobacco Use Types [...] on filedocumented in this encounter Care Teams Overseer Kosher Kitchen Relationship Specialty Start Date End Date Mattie Louise MD PCP - General Internal Medicine 02/16/15 07/06/20 [facility], Pcp PCP - General Internal Medicine 07/07/20 12/10/20 Mattie Louise MD PCP - General Internal Medicine 12/11/20 03/02/21 [facility], Pcp PCP - General Internal Medicine 03/03/21 documented as of this encounter
--- OUTSIDE RECORDS SUMMARY | 2024-05-08 08:05 | XMS_ITS | Encounter Summary ---
Author Organization [facility] Address [address] [place] [address] Care Team Providers Care Risk Control Manager Name Role Phone Mattie Louise MD Primary Care Provider [facility], Pcp Primary Care Provider Unavailabl Mattie Jacobs MD Primary Care Provider [facility], Pcp Primary Care Provider Unavailabl e Encounter Details Date Type Department Care Team Description 03/31/2017 Pt. Non Urgent Medic al Question Medicine/Pediatrics - [address] [phone] Carlos Cordero PA-C Social History Tobacco Use [...] on filedocumented in this encounter Care Teams Risk Control Manager Relationship Specialty Start Date End Date Mattie Louise MD PCP - General Internal Medicine 02/16/15 07/06/20 [facility], Pcp PCP - General Internal Medicine 07/07/20 12/10/20 Mattie Louise MD PCP - General Internal Medicine 12/11/20 03/02/21 [facility], Pcp PCP - General Internal Medicine 03/03/21 documented as of this encounter
--- OUTSIDE RECORDS SUMMARY | 2024-05-08 08:05 | XMS_ITS | Encounter Summary ---
Author Organization [facility] Address [address] [place] [address] Care Team Providers Care Maintenance Service Technician Name Role Phone Mattei Louise MD Primary Care Provider [facility], Pcp Primary Care Provider Unavailabl e Mattie Louise MD Primary Care Provider [facility], Pcp Primary Care Provider Unavailabl e Encounter Details Date Type Department Care Team Description 01/07/2016 Refill ORDERLY - [address] [address] Clare Nick MD Social History Tobacco Use [...] Renewal Request Original authorizing provider: MD Brie Reyse would like a refill of the following medications: clotrimazole-betamethasone (LOTRISONE) cream [Clare Nick MD] Preferred pharmacy: [id number] [place] [address] Comment: please refill. thank you! Medication renewals requested in this message routed to other providers: lorazepam (ATIVAN) 1 MG tablet [Mattie Raymundo MD] documented in this encounter Plan of Treatment Not on file documented as of this encounter Visit Diagnoses Not on filedocumented in this encounter Care Teams Maintenance Service Technician Relationship Specialty Start Date End Date Mattie Louise MD PCP - General Internal Medicine 02/16/15 07/06/20 [facility], Pcp PCP - General Internal Medicine 07/07/20 12/10/20 Mattie Louise MD PCP - General Internal Medicine 12/11/20 03/02/21 Community, Pcp PCP - General Internal Medicine 03/03/21 documented as of this encounter
--- NOTE | 2024-05-08 08:36 | PM.PROC ---
Brief Operative Note Date of procedure: 05/08/24 Pre-op diagnosis: left mid 2.1 cm thyroid nodule FNA biopsy Post-op diagnosis: same Procedure: THYROID FINE NEEDLE ASPIRATION PROCEDURE NOTE ? PROCEDURE PERFORMED: Ultrasound-guided FNA of thyroid nodule ? OPERATORS: Dr. Karen Cosby ? INDICATION:left mid 2.1 cm thyroid nodule ; FNA performed to assess for malignancy ? DESCRIPTION OF PROCEDURE: The indications for FNA (to assess for malignancy) were reviewed with the patient in detail. Potential complications (e.g., bleeding, infection, damage to local structures, absence of clear diagnosis after FNA) were reviewed. Alternatives to FNA including conservative observation or surgery were described. The patient understood and agreed to proceed. This was documented by the signing of the written informed consent form. A time-out was performed to confirm the patient's identity and the site of planned FNA. The nodule of interest was identified using ultrasound (14 MHz linear array probe). The site of FNA was then draped in the usual fashion and carefully cleaned and prepared using alcohol swabs. The skin at the previously-identified site of needle insertion was iced and sprayed with numbing spray. Under ultrasound guidance, 5__ passes were performed using a 1.5-inch, 25-gauge needle, and sample was obtained via capillary action. The needle tip was clearly visualized to be within the nodule at the time of sampling for _5_ of _5_ passes The patient tolerated the procedure well. There were no immediate complications. A small adhesive bandage was applied, and the patient was advised to take acetaminophen (rather than NSAIDs) for any discomfort and to report any signs of inflammation/infection or marked swelling. IMPRESSION: Technically successful ultrasound-guided fine needle aspiration of left mid 2.1 cm thyroid nodule . PLAN: The patient was advised that I will provide follow-up regarding the cytology result and any subsequent plans. Karen Cosby MD Endocrinology Attending Condition: stable Disposition: same day
== END 2024-05-08 07:59 | disposition home or self-care (01) ==
LOC: HO.US 07:58
PROVIDERS: PCP Internal Medicine; Visit Provider Student in an Organized Health Care Education/Training Program
DX: E04.2 Nontoxic multinodular goiter (principal)
CPT/HCPCS: 10005; 88173; 88305

== ENCOUNTER → 2024-05-08 07:58 | Outpatient (BNV) | payer OTHER, SELFPAY | PROVIDERS: PCP Internal Medicine; Visit Provider Student in an Organized Health Care Education/Training Program | DX: E04.1 Nontoxic single thyroid nodule (principal) | CPT/HCPCS: 10005 ==

== ENCOUNTER 2024-06-03 08:51 | Outpatient (AMB) | payer OTHER, SELFPAY ==
[2024-06-03 08:56] VITALS: BP 124/76; PULSE 82; O2SAT 97; BMI 27.3
--- NOTE | 2024-06-03 08:56 | A.OFFVIS_ITS ---
Vital Signs 3 06/03/24 08:56 Height 5 ft 7 in Weight 174 lb 2.643 oz BMI 27.3 BP 124/76 Blood Pressure Location Rt brachial Position Sitting Pulse 82 Pulse Source Pulse Oximeter Pulse Oximetry (%) 97 Oxygen Delivery Method Room Air Intake Visit Reasons: Biopsy f/u Intake Note: Patient presents today for Thyroid Biopsy Results: L Desktop Publisher Required: No Accompanied by: Self / Same As Patient Allergies prochlorperazine [From Compazine] Allergy (Unknown, Verified 06/03/24 08:57) Throat closes Medication List - Last Reconciled 06/03/24 by Karen Cosby MD amoxicillin 2,000 mg (4 x 500 mg) PO ONCE PRN azithromycin For 250 mg dose pack: take 500 mg today (day 1), then 250 mg for 4 days (days 2-5) PO blood sugar diagnostic ([employer] Ultra Test strips) As directed bupropion HCl XL (Wellbutrin XL) 150 mg PO QAM nrerjdsnmi-fcbsgcnkyhkhk-oorh 50-325-40 mg 1 tab PO Q6H PRN 30 days ciclopirox 8% topical clobetasol 0.05% topical DAILY clotrimazole 1% 1 appl topical BID clotrimazole-betamethasone 1-0.05 % 1 appl topical BID duloxetine 60 mg PO DAILY fluticasone propionate 50 mcg/actuation 1 spray intranasal BID levofloxacin 750 mg PO DAILY lorazepam 1 mg PO Q6H PRN 28 days mupirocin 2% 1 appl topical BID 30 days propranolol 20 mg PO TID sertraline 25 mg PO DAILY silver sulfadiazine 1% appl topical HPI Comments Details: 58-year-old female coming in today for follow up of multinodular goiter. HPI from prior visit Hypothyrodism was diagnosed 2016 and fabienne was on levothyroxine 75 mcg daily for a few years but was not very regular with it. She has now been off it for at least a year. blood work from 07/27 showed TSH high at 7.8 and normal free T4 , however she remained off the medication and then labs from 11/30/23 were normal TSH at 3.73. Diagnosed with thyroid nodules in 2013 Was following at [facility] underwent FNA 2013 in [place] she thinks , was benign not sure how many nodules or which side. Ultrasound from September 2023, I reviewed the images myself which show multiple bilateral thyroid nodules. She has a left dominant 2.3 cm solid hypoechoic nodule, TR 4 category, per DAVID this is intermediate suspicion nodule with a 10- 20% chance of malignancy. Meets criteria for FNA. On the right side she has a dominant 1.1 cm right lower pole nodule which is reported as taller than wide and lobulated making it a TR 5 category nodule, however when I look at the images myself, it is not very distinguished nodule, almost appears as if she has a pseudonodule. Given her history of Jelly's/hypothyroidism, she might have pseudonodules. I would like to hold off on biopsy of this nodule for now, we will look at it with the ultrasound briefly when I biopsy her left dominant nodule. Another subcentimeter right lower pole nodule 0.9 cm in maximum dimension does not meet criteria for biopsy, solid, isoechoic, TR 3 nodule, low suspicion category per DAVID guidelines with a 5-10% chance malignancy. Patient currently denies heat or cold intolerance, diarrhea or constipation, hair loss, palpitation, anxiety, weight changes, mood changes, low energy, changes in appearance of eyes or vision changes, tremors, increased diaphoresis or dry skin. Post menopausal since 49. Was recenlty diagnosed with POTs , was having palpitations, tachycardria before but since starting propranolol and other measures for POTS , all of this has resolved. Still reports fatigue. Not worsening. Gained 6 lbs over the summer 2023. Patient denies any difficulty swallowing with food , but just some trouble swallowing with big pills , pain on swallowing or voice changes or difficulty breathing. Patient denies any history of childhood neck radiation. Denies having ever used lithium, amiodarone or biotin supplements. Patient denies any family history of thyroid cancer or thyroid disease. Daughter has thyroid nodules and Hashimotos. Underwent FNA biopsy of the left dominant 2.3 cm nodule on 12/27/2023, which came back as nondiagnostic Tamaroa category 1. labs 12/27/2023 showed normal thyroid function. Repeat FNA of the left dominant 2.3 cm nodule on 04/03/2024 came back as suspicious for follicular neoplasm Tamaroa category 4, however unfortunately Afirma came back as no results due to low RNA yield. Patient is also describing to me that over the past few months she is also having more trouble swallowing pills as well as food. She has the last 1 to finish her food. She is also complaining of some voice raspiness. She is also having more heat intolerance, fatigue. 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[employer] [facility] Physical exam General: sitting comfortably in no acute distress HEENT: normocephalic/atraumatic, EOM intact, moist oral mucosa Neck: supple, symmetrical, palpable left-sided 2 cm nodule Cardiac: normal heart sounds Pulm: normal breath sounds B/L, no added breath sounds Abd: not distended, no tenderness Extremities: no edema, no signs of myxedema Neuro: AAO x3, Speech: normal, no facial droop, moving all 4 extremities Laboratory Tests 12/27/23 09:00 TSH 3.53 Free T4 0.74 Laboratory Tests 04/17/24 15:07 TSH 4.24 H Free T4 0.86 Laboratory Tests 07/20/23 11/28/23 11:22 13:57 TSH 7.86 H 3.73 Free T4 0.74 Laboratory Tests 12/27/23 09:00 TSH 3.53 Free T4 0.74 EXAMINATION: US THYROID 09/2023 CLINICAL INFORMATION: Other specified hypothyroidism. COMPARISON: None available. TECHNIQUE: Linear transducer grayscale and color Doppler examination with attention to the region of the thyroid. FINDINGS: SIZE: Measurements of the thyroid lobes and nodules are given in sagittal, anteroposterior and transverse dimensions respectively. Right Thyroid Lobe: 5.5 x 1.8 x 1.4 cm, volume 7.2 mL. Parenchyma: The gland echotexture is heterogeneous. Thyroid vascularity is increased. Left Thyroid Lobe: 5.0 x 2.0 x 2.0 cm, volume 10.5 mL. Parenchyma: The gland echotexture is heterogeneous. Thyroid vascularity is increased. Isthmus: 0.3 cm in maximum AP dimension. Estimated total number of nodules greater than or equal to 1 cm: 1. Plastic Extrusion Operator nodules are described as follows: 1. Location: Right lower pole. Size: 1.1 x 1.0 x 0.8 cm, volume 0.5 mL. Nodule characteristics: Composition: Solid (2). Echogenicity: Hyperechoic (1). Shape: Taller than wide (3). Margins: Lobulated (2). Echogenic Foci: None (0). ACR TI-RADS total points: 8. ACR TI-RADS category: 5. 2. Location: Right lower pole. Size: 0.9 x 0.8 x 0.9 cm, volume 0.3 mL. Nodule characteristics: Composition: Solid (2). Echogenicity: Isoechoic (1). Shape: Not taller than wide (0). Margins: Smooth (0). Echogenic Foci: None (0). ACR TI-RADS total points: 3. ACR TI-RADS category: 3. 3. Location: Left midpole. Size: 2.3 x 1.6 x 1.7 cm, volume 3.1 mL. Nodule characteristics: Composition: Solid (2). Echogenicity: Hypoechoic (2). Shape: Not taller than wide (0). Margins: Smooth (0). Echogenic Foci: None (0). ACR TI-RADS total points: 4. ACR TI-RADS category: 4. NODES: No lymphadenopathy is seen in the tissue surrounding the thyroid gland. US/US thyroid IMPRESSION: 1.1 cm right TR5 thyroid nodule meets criteria for biopsy. Fine-needle aspiration recommended if not already performed. 2.3 cm left TR4 thyroid nodule meets criteria for biopsy. Fine-needle aspiration recommended if not already performed. This study was presented to me on November 20, 2023 for interpretation. PSA staff will provide results to referring provider at this time. Results provided to referring physician as requested. [facility] Medical History (Updated 06/03/24 @ 09:23 by Karen Cosby MD) Vitamin D deficiency Multinodular goiter Depression Anxiety Psoriasis Headache Peptic ulcer POTS (postural orthostatic tachycardia syndrome) Palpitations Sinusitis Cyst of ovary Surgical History (Updated 06/03/24 @ 09:01 by SOBEIDA Dugan) Hx of dilation and curettage Hx of removal of cyst History of laparoscopic appendectomy Hx of biopsy Family History Father HTN (hypertension) Hypercholesteremia Cardiovascular disease Basal cell carcinoma Mother Hypercholesteremia Thyroid disorder Anxiety Other Mental disorder Social History Housing: House e-Cigarette/Vaping Use: Never Used service: No Current occupational status: employed 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 Current occupational exposures/hazards: No Cognitive needs: No Hearing needs: No Vision needs: Yes (glasses) Physical Exam Vital Signs: Last Vital Signs Pulse 82 06/03/24 08:56 BP 124/76 06/03/24 08:56 Pulse Ox 97 06/03/24 08:56 Oxygen Delivery Method Room Air 06/03/24 08:56 BMI result Body Mass Index 27.3 Assessment & Plan Assessment & Plan (1) Multinodular goiter: Code(s): E04.2 - Nontoxic multinodular goiter Category: Medical Plan: Patient with no personal history of head or neck radiation, with no family history of thyroid cancer who has a history multiple thyroid nodules diagnosed in 2013. She has had a biopsy of at least 1 of these nodules but she is not sure which side was done or what nodule was biopsied. She reports the result was benign. Ultrasound from September 2023, I reviewed the images myself which show multiple bilateral thyroid nodules. She has a left dominant 2.3 cm solid hypoechoic nodule, TR 4 category, per DAVID this is intermediate suspicion nodule with a 10- 20% chance of malignancy. Meets criteria for FNA. On the right side she has a dominant 1.1 cm right lower pole nodule which is reported as taller than wide and lobulated making it a TR 5 category nodule, however when I looked at it myself when I did the biopsy ultrasounds, it is not very distinguished nodule, almost appears as if she has a pseudonodule. Given Another subcentimeter right lower pole nodule 0.9 cm in maximum dimension does not meet criteria for biopsy, solid, isoechoic, TR 3 nodule, low suspicion category per DAVID guidelines with a 5-10% chance malignancy. Underwent FNA biopsy of the left dominant 2.3 cm nodule on 12/27/2023, which came back as nondiagnostic Tamaroa category 1. Repeat FNA of the left dominant 2.3 cm nodule on 04/03/2024 came back as suspicious for follicular neoplasm Tamaroa category 4, however unfortunately Afirma came back as no results due to low RNA yield. FNA again repeated 05/08/2024 of the dominant left midpole 2.3 cm nodule to get molecular testing results which on cytology was now labeled as AUS with nuclear atypia, Tamaroa category 3, Afirma came back as suspicious 50% risk of malignancy Given suspicious Afirma results, next step would be to undergo either left lobectomy versus total thyroidectomy. She has an appointment with Dr. Adali Lawrence at [facility] on 06/20/2024 for surgical evaluation. I discussed with her that it would be fair to have left lobectomy to get diagnostic pathology results and then if she was found to have cancer, proceed with completion thyroidectomy, or she could also choose to have total thyroidectomy given she does have a subcentimeter nodule on the contralateral side. I discussed with her that she is at high-risk of developing hypothyroidism even with just lobectomy given she has had elevated TSH levels. Last TSH level from April 2024 elevated at 4.24, free T4 normal at 0.86. 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 Given planning for surgical evaluation, with the risk of parathyroid injury during surgery, we will check a vitamin-D level. She is not on any vitamin-D supplements. Plan: -scheduled for surgical evaluation with Dr. 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 She was irregular when she was taking it. However she has been off it for about a year, recently she was having some symptoms tachycardia, palpitations, fatigue, however was also diagnosed POTS recently in your symptoms are improved with propranolol. She had blood work done which showed elevated TSH of 7.8 in July 2023 when she was off levothyroxine however continued to remain off it and blood work done in November and December 2023 showed normal TSH . Her weight has remained stable. Her palpitations/tachycardia has resolved she continues to have fatigue which she feels has worsened recently as well as some heat intolerance. Most recent blood work done in April 2024 did show TSH was mildly elevated at 4.24, free T4 normal at 0.86, for now she does not need any levothyroxine treatment. Plan see above Orders: Orders 2 Vitamin D 25-OH Total Today E55.9 - Vitamin D deficiency, unspecified Patient Instructions: Take vitamin D 1000 units daily from now on Do vitamin D blood work Follow up with Dr. 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
== END 2024-06-03 09:32 | disposition home or self-care (01) ==
LOC: HO.ENCR 08:52
PROVIDERS: PCP Internal Medicine; Visit Provider Student in an Organized Health Care Education/Training Program
DX: E04.2 Nontoxic multinodular goiter (principal); E03.8 Other specified hypothyroidism; E06.3 Autoimmune thyroiditis
CPT/HCPCS: 99213

== ENCOUNTER 2024-06-03 09:44 | Outpatient (REF) | payer OTHER, SELFPAY ==
[2024-06-03 11:48] LABS: Free T4 (Free Thyroxine) 0.86 ng/dL (0.71-1.85); TSH reflex Free T4 3.16 uIU/mL (0.32-4.0)
[2024-06-03 11:58] LABS: Vitamin D 25-OH Total 21.3 ng/mL (>30)
== END 2024-06-03 09:45 | disposition home or self-care (01) ==
LOC: HO.10HDL 09:44
PROVIDERS: Visit Provider Student in an Organized Health Care Education/Training Program
DX: E55.9 Vitamin D deficiency, unspecified (principal); E04.1 Nontoxic single thyroid nodule; E04.2 Nontoxic multinodular goiter
CPT/HCPCS: 36415; 82306; 84439; 84443

== ENCOUNTER 2024-08-19 10:47 | Outpatient (REF) | payer OTHER, SELFPAY ==
[2024-08-19 14:42] LABS: Free T4 (Free Thyroxine) 0.85 ng/dL (0.71-1.85); Thyroid Stimulating Hormone 13.47 uIU/mL (0.32-4.0)
== END 2024-08-19 10:48 | disposition home or self-care (01) ==
LOC: HO.WFDLDS 10:47
PROVIDERS: Student in an Organized Health Care Education/Training Program; Visit Provider Student in an Organized Health Care Education/Training Program
DX: E04.2 Nontoxic multinodular goiter (principal)
CPT/HCPCS: 36415; 84439; 84443

== ENCOUNTER 2024-08-20 12:59 | Outpatient (AMB) | payer OTHER, SELFPAY ==
--- NOTE | 2024-08-20 13:00 | A.OFFVIS_ITS ---
Vital Signs 3 08/20/24 13:01 Height 5 ft 7 in Weight 180 lb 8.937 oz BMI 28.3 BP 134/84 Blood Pressure Location Rt brachial Position Sitting Pulse 48 L Pulse Source Pulse Oximeter Pulse Oximetry (%) 96 Oxygen Delivery Method Room Air Intake Visit Reasons: Post op questions Intake Note: Patient present today for post op questions. 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 Petroleum Required: No Accompanied by: Daughter Allergies prochlorperazine [From Compazine] Allergy (Unknown, Verified 08/20/24 13:06) Throat closes Medication List - Last Reconciled 08/20/24 by Karen Cosby MD amoxicillin 2,000 mg (4 x 500 mg) PO ONCE PRN amoxicillin-pot clavulanate 875-125 mg 1 tab PO BID azithromycin For 250 mg dose pack: take 500 mg today (day 1), then 250 mg for 4 days (days 2-5) PO blood sugar diagnostic ([employer] Ultra Test strips) As directed bupropion HCl XL (Wellbutrin XL) 150 mg PO QAM fhytndbxqf-dyuiqtrtaudji-wxug 50-325-40 mg 1 tab PO Q6H PRN 30 days ciclopirox 8% topical clobetasol 0.05% topical DAILY clotrimazole 1% 1 appl topical BID clotrimazole-betamethasone 1-0.05 % 1 appl topical BID duloxetine 60 mg PO DAILY fluticasone propionate 50 mcg/actuation 1 spray intranasal BID levofloxacin 750 mg PO DAILY lorazepam 1 mg PO Q6H PRN 28 days mupirocin 2% 1 appl topical BID 30 days propranolol 20 mg PO TID sertraline 25 mg PO DAILY silver sulfadiazine 1% appl topical tramadol 50 mg PO Q6H PRN HPI Comments Details: 58-year-old female coming in today for follow up of thyroid cancer,Status post left lobectomy and isthmus 07/24/[address] 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 Stage I, pT1b NX. AJCC stage I, DAVID low risk of recurrence. HPI from prior visit Hypothyrodism was diagnosed 2016 and fabienne was on levothyroxine 75 mcg daily for a few years but was not very regular with it. She has now been off it for at least a year. blood work from 07/27 showed TSH high at 7.8 and normal free T4 , however she remained off the medication and then labs from 11/30/23 were normal TSH at 3.73. Diagnosed with thyroid nodules in 2013 Was following at [place] underwent FNA 2014 in [place] she thinks , was benign not sure how many nodules or which side. 09/26: Ultrasound from September 2023, I reviewed the images myself which show multiple bilateral thyroid nodules. She has a left dominant 2.3 cm solid hypoechoic nodule, TR 4 category, per DAVID this is intermediate suspicion nodule with a 10-20% chance of malignancy. Meets criteria for FNA. On the right side she has a dominant 1.1 cm right lower pole nodule which is reported as taller than wide and lobulated making it a TR 5 category nodule, however when I look at the images myself, it is not very distinguished nodule, almost appears as if she has a pseudonodule. Given her history of Jelly's/hypothyroidism, she might have pseudonodules. I would like to hold off on biopsy of this nodule for now, we will look at it with the ultrasound briefly when I biopsy her left dominant nodule. Another subcentimeter right lower pole nodule 0.9 cm in maximum dimension does not meet criteria for biopsy, solid, isoechoic, TR 3 nodule, low suspicion category per DAVID guidelines with a 5-10% chance malignancy. 12/27/2023: Underwent FNA biopsy of the left dominant 2.3 cm nodule on 12/27/2023, which came back as nondiagnostic Horner category 1. labs 12/27/2023 showed normal thyroid function. 04/03/2024: Repeat FNA of the left dominant 2.3 cm nodule on 04/03/2024 came back as suspicious for follicular neoplasm Horner category 4, however unfortunately Afirma came back as no results due to low RNA yield. 05/08/2024: FNA again repeated 05/08/2024 of the dominant left midpole 2.3 cm nodule to get molecular testing results which on cytology was now labeled as AUS with nuclear atypia, Horner category 3, Afirma came back as suspicious 50% risk of malignancy Patient denies any history of childhood neck radiation. Denies having ever used lithium, amiodarone or biotin supplements. Patient denies any family history of thyroid cancer or thyroid disease. Daughter has thyroid nodules and Hashimotos. Interval history 07/24/2024: Status post left lobectomy and isthmus 07/24/[address] 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 Stage I, pT1b NX. AJCC stage I, DAVID low risk of recurrence. 08/19/2024: TSH 13.47, free T4 0.85 Pending completion thyroidectomy, waiting to hear from the surgical office. Overall she did well postoperatively, feels swallowing is better and that voice is also better. No calcium issues after the surgery. 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 [employer] Physical exam General: sitting comfortably in no acute distress HEENT: normocephalic/atraumatic, Neck: supple, surgical scar healing well Cardiac: normal heart sounds Pulm: normal breath sounds B/L, no added breath sounds Abd: not distended, no tenderness Laboratory Tests 12/27/23 09:00 TSH 3.53 Free T4 0.74 Laboratory Tests 04/17/24 15:07 TSH 4.24 H Free T4 0.86 Laboratory Tests 06/03/24 08/19/24 09:58 10:50 25-OH Vitamin D Total 21.3 L TSH 3.16 13.47 H Free T4 0.86 0.85 Laboratory Tests 07/20/23 11/28/23 11:22 13:57 TSH 7.86 H 3.73 Free T4 0.74 Laboratory Tests 12/27/23 09:00 TSH 3.53 Free T4 0.74 EXAMINATION: US THYROID 09/2023 CLINICAL INFORMATION: Other specified hypothyroidism. COMPARISON: None available. TECHNIQUE: Linear transducer grayscale and color Doppler examination with attention to the region of the thyroid. FINDINGS: SIZE: Measurements of the thyroid lobes and nodules are given in sagittal, anteroposterior and transverse dimensions respectively. Right Thyroid Lobe: 5.5 x 1.8 x 1.4 cm, volume 7.2 mL. Parenchyma: The gland echotexture is heterogeneous. Thyroid vascularity is increased. Left Thyroid Lobe: 5.0 x 2.0 x 2.0 cm, volume 10.5 mL. Parenchyma: The gland echotexture is heterogeneous. Thyroid vascularity is increased. Isthmus: 0.3 cm in maximum AP dimension. Estimated total number of nodules greater than or equal to 1 cm: 1. Microfilm Technician nodules are described as follows: 1. Location: Right lower pole. Size: 1.1 x 1.0 x 0.8 cm, volume 0.5 mL. Nodule characteristics: Composition: Solid (2). Echogenicity: Hyperechoic (1). Shape: Taller than wide (3). Margins: Lobulated (2). Echogenic Foci: None (0). ACR TI-RADS total points: 8. ACR TI-RADS category: 5. 2. Location: Right lower pole. Size: 0.9 x 0.8 x 0.9 cm, volume 0.3 mL. Nodule characteristics: Composition: Solid (2). Echogenicity: Isoechoic (1). Shape: Not taller than wide (0). Margins: Smooth (0). Echogenic Foci: None (0). ACR TI-RADS total points: 3. ACR TI-RADS category: 3. 3. Location: Left midpole. Size: 2.3 x 1.6 x 1.7 cm, volume 3.1 mL. Nodule characteristics: Composition: Solid (2). Echogenicity: Hypoechoic (2). Shape: Not taller than wide (0). Margins: Smooth (0). Echogenic Foci: None (0). ACR TI-RADS total points: 4. ACR TI-RADS category: 4. NODES: No lymphadenopathy is seen in the tissue surrounding the thyroid gland. US/US thyroid IMPRESSION: 1.1 cm right TR5 thyroid nodule meets criteria for biopsy. Fine-needle aspiration recommended if not already performed. 2.3 cm left TR4 thyroid nodule meets criteria for biopsy. Fine-needle aspiration recommended if not already performed. This study was presented to me on November 20, 2023 for interpretation. PSA staff will provide results to referring provider at this time. Results provided to referring physician as requested. [facility] Medical History (Updated 08/20/24 @ 14:08 by Karen Cosby MD) Thyroid cancer Vitamin D deficiency Multinodular goiter Depression Anxiety Psoriasis Headache Peptic ulcer POTS (postural orthostatic tachycardia syndrome) Palpitations Sinusitis Cyst of ovary Surgical History (Updated 08/20/24 @ 13:05 by SOBEIDA Schwartz) History of thyroid surgery Hx of dilation and curettage Hx of removal of cyst History of laparoscopic appendectomy Hx of biopsy Family History Father HTN (hypertension) Hypercholesteremia Cardiovascular disease Basal cell carcinoma Mother Hypercholesteremia Thyroid disorder Anxiety Other Mental disorder Social History Housing: House e-Cigarette/Vaping Use: Never Used service: No Current occupational status: employed 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 Current occupational exposures/hazards: No Cognitive needs: No Hearing needs: No Vision needs: Yes (glasses) Physical Exam Vital Signs: Last Vital Signs Pulse 48 L 08/20/24 13:01 BP 134/84 08/20/24 13:01 Pulse Ox 96 08/20/24 13:01 Oxygen Delivery Method Room Air 08/20/24 13:01 BMI result Body Mass Index 28.3 Assessment & Plan Assessment & Plan (1) Thyroid cancer: Code(s): C73 - Malignant neoplasm of thyroid gland Category: Medical Plan: 58-year-old female with no family history of thyroid cancer, with no personal history of head or neck radiation who was found to have multinodular goiter, also with a history of Jelly's disease, coming in today for follow up of thyroid cancer,Status post left lobectomy and isthmus 07/24/[address] 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 Stage I, pT1b NX. AJCC stage I, DAVID low risk of recurrence.07/24/2024: Status post left lobectomy and isthmus 07/24/[address] 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 Stage I, pT1b NX. AJCC stage I, DAVID low risk of recurrence. Given the size of the 2 cm focus less microscopic invasion into the margins, I agree with for surgeons assessment that she would benefit from completion thyroidectomy. Discussed in detail with the patient regarding prognosis of PTC in that it is a slow growing indolent cancer in most cases and that 95% of the people have good prognosis after surgery with less than 5% risk of recurrence. We discussed that depending on her surgical pathology after completion thyroidectomy and postoperative thyroglobulin levels we will determine whether she needs radioactive iodine or not. For now we will start her on low-dose levothyroxine since labs from 08/19/2024 showed TSH elevated at 13.47 and free T4 normal at 0.85. Post completion thyroidectomy depending on postoperative thyroglobulin levels we will determine how much TSH suppression does she need. Plan: -plan for completion thyroidectomy with Dr. Adali Lawrence at [facility] -start levothyroxine 50 mcg daily -TSH and free T4 to be done in 6 weeks -follow up in 3 months All questions were answered, patient verbalized understanding (2) Hypothyroid: Code(s): E03.9 - Hypothyroidism, unspecified Category: Medical Qualifiers: Hypothyroidism type: due to Jelly's thyroiditis Qualified Code(s): E03.8 - Other specified hypothyroidism; E06.3 - Autoimmune thyroiditis Plan: Labs from 08/19/2024: TSH 13.47, free T4, 0.85 Plan: -start levothyroxine 50 mcg daily -TSH and free T4 to be done in 6 weeks Plan I spent 45 minutes in reviewing the record, seeing the patient and documenting in the medical record. Orders: Orders 2 Thyroid Stimulating Hormone 6 Weeks C73 - Malignant neoplasm of thyroid gland, E03.8 - Other specified hypothyroidism, E06.3 - Autoimmune thyroiditis Free T4 (Free Thyroxine) 6 Weeks C73 - Malignant neoplasm of thyroid gland, E03.8 - Other specified hypothyroidism, E06.3 - Autoimmune thyroiditis Medications: New 2 levothyroxine 50 mcg PO DAILY 30 tabs 4RF Patient Instructions: Start levothyroxine 50 mcg daily Do blood work in 6 weeks Follow up in 3 months but once you have date of surgery please let us know and we can adjust appointment to 6 weeks post op Coding Level of Care Code Est Pt Level 5 (31498) Diagnoses Thyroid cancer C73 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
[2024-08-20 13:01] VITALS: BP 134/84; PULSE 48; O2SAT 96; BMI 28.3
== END 2024-08-20 14:15 | disposition home or self-care (01) ==
LOC: HO.ENCR 13:00
PROVIDERS: PCP Internal Medicine; Visit Provider Student in an Organized Health Care Education/Training Program
DX: C73 Malignant neoplasm of thyroid gland (principal); E03.8 Other specified hypothyroidism; E06.3 Autoimmune thyroiditis
CPT/HCPCS: 99215

== ENCOUNTER 2024-10-01 13:17 | Outpatient (AMB) | payer OTHER, SELFPAY ==
--- OUTSIDE RECORDS SUMMARY | 2024-09-25 23:59 | XMS_ITS | Continuity of Care Document ---
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 Fabricator Name Role Phone Breanne BAEZ, Mattie Daugherty Primary Care Physician Encounter [facility] Date(s): 08/26/24 - 09/25/[address] [place], [place] [address] Encounter Type: Triage Allergies, Adverse Reactions, Alerts Substance Criticality Severity Reaction Reaction Severity Status Compazine anaphylactic shock A ctive Other Environmental Allergy pollen and dust Active Immunizations Given and Recorded Vaccine Date Status Refusal Reason SARS-CoV-2 (COVID-19) mRNA BNT-162b2 vac 03/18/21 Recorded SARS-CoV-2 (COVID-19) mRNA BNT-162b2 vac 09/22/20 Recorded SARS-CoV-2 (COVID-19) mRNA BNT-162b2 vac 09/01/20 Recorded Medications acetaminophen/butalbital/caffeine 325 mg-50 mg-40 mg oral tablet See Instructions, TAKE 1 TABLET BY MOUTH EVERY 4 HOURS NEEDED FOR HEADACHES, # 112 tablet, 3 Refills, Maintenance, 05/29/23 4:18:00 PM EDT, [id number], TAKE 1 TABLET BY MOUTH EVERY 4 HOURS NEEDED FOR HEADACHES, 171, cm, 04/27/23 16:25:00 EST, Height, 71, kg, 04/27/23 16:25:00 EST, Dry Weight Start Date: 05/29/23 Status: Ordered Quantity: 112.0 Unit: tablet Repeat number: 4 acetaminophen/butalbital/caffeine 325 mg-50 mg-40 mg oral tablet 1 tablet, By Mouth, Every 4 hours, PRN for headache, # 112 tablet, 0 Refills, Maintenance, 04/26/22 11:58:00 AM EST, Tablet, [facility], Partial fill upon patient request if the prescription is for a schedule II opioid drug., 1 tablet By Mouth Every 4 hours,x28 days,PRN:for headache, 170, cm, 03/18/22 14:05:00 EST, Height Start Date: 04/26/22 Stop Date: 05/24/22 Status: Ordered Quantity: 112.0 Unit: tablet Repeat number: 1 amoxicillin 500 mg oral tablet 4 tablet = 2,000 mg, By Mouth, Once, PRN dental work, # 20 tablet, 3 Refills, Soft Stop, 04/18/23 2:10:00 PM EST, Tablet, [facility], Partial fill upon patient request if the prescription is for a schedule II opioid drug., 171, cm, 03/14/23 12:55:00 EST, Height Start Date: 04/18/23 Status: Ordered Quantity: 20.0 Unit: tablet Repeat number: 4 azelastine 137 mcg/inh (0.1%) nasal spray See Instructions, USE 2 SPRAYS INTO BOTH NOSTRIL DAILY NEEDED FOR ALLERGIES, # 90 Unknown, 1 Refills, Maintenance, 03/17/23 5:27:00 AM EST, [facility], 90, USE 2 SPRAYS INTO BOTH NOSTRIL DAILY NEEDED FOR ALLERGIES, 171, cm, 03/14/23 12:55:00 EST, Height Start Date: 03/17/23 Status: Ordered Quantity: 90.0 Unit: Unknown Repeat number: 2 azithromycin 250 mg oral tablet 1 tablet = 250 mg, By Mouth, Daily, 2 tablets on first day, then one tablet daily for 4 days, # 6 tablet, 0 Refills, Maintenance, 01/03/23 12:20:00 PM EDT, Tablet, [facility], Partial fill upon patient request if the prescription is for a schedule II opioid drug., 171, cm, 09/20/22 14:02:00EDT, Height Start Date: 01/03/23 Status: Ordered Quantity: 6.0 Unit: tablet Repeat number: 1 betamethasone-clotrimazole 0.05%-1% topical cream 1 application, Topically, 2 times a day, # 45 Gm, 3 Refills, Maintenance, 09/20/22 2:42:00 PM EDT, Cream, [facility], Partial fill upon patient request if the prescription is for a schedule IIopioid drug., 1 application Topically 2 times a day, 171, cm, 09/20/22 14:02:00 EDT, Height Start Date: 09/20/22 Status: Ordered Quantity: 45.0 Unit: g Repeat number: 4 buPROPion 150 mg/24 hours (XL) oral tablet, extended release 1 tablet = 150 mg, 0 Refills, Maintenance, 09/20/23 2:15:00 PM EDT, Partial fill upon patient request if the prescription is for a schedule II opioid drug. Start Date: 09/20/23 Status: Ordered Repeat number: 1 ciclopirox 8% topical solution 1 application, Topically, Daily, # 9.9 mL, 3 Refills, Maintenance, 12/19/22 1:04:00 PM EDT, Solution, [facility], Partial fill upon patient request if the prescription is for a schedule II opioid drug., 1 application Topically Daily, 171, cm, 09/20/22 14:02:00 EDT, Height Start Date: 12/19/22 Status: Ordered Quantity: 9.9 Unit: mL Repeat number: 4 Clobetasol (Eqv-Temovate) 0.05% topical cream See Instructions, APPLY A THIN FILM TO AFFECTED AREA, # 30 Gm, 1 Refills, Maintenance, 11/09/22 10:55:00 AM EDT, [id number], 30, APPLY A THIN FILM TO AFFECTED AREA, 171, cm, 09/20/22 14:02:00 EDT,Height Start Date: 11/09/22 Status: Ordered Quantity: 30.0 Unit: g Repeat number: 1 clotrimazole 1% topical cream 1 application, Topically, 2 times a day, apply around the nail daily, # 12 Gm, 0 Refills, Maintenance, 07/05/21 11:28:00 AM EDT, Cream, [facility] #1234, Partial fill upon patient request if the prescription is for a schedule II opioid drug., 1 application Topically 2 times a day,Instr:apply aroundthe nail daily, 170, cm, 04/12/21 10:38:00 EST, Height Start Date: 07/05/21 Status: Ordered Quantity: 12.0 Unit: g Repeat number: 1 duloxetine 60 mg oral enteric coated capsule 1 capsule, By Mouth, Daily, # 90 capsule, 3 Refills, Maintenance, 06/15/23 2:39:00 PM EDT, [facility] [id number], 171, cm, 06/08/23 14:11:00 EDT, Height, 71, kg, 04/27/23 16:25:00 EST, Dry Weight Start Date: 06/15/23 Status: Ordered Quantity: 90.0 Unit: capsule Repeat number: 1 ferrous sulfate 325 mg oral tablet 1 tablet = 325 mg, By Mouth, 3 times a day, 0 Refills, Maintenance, 01/14/19 4:06:24 PM EST Start Date: 01/14/19 Status: Ordered Repeat number: 1 Flonase 50 mcg/inh nasal spray 2 sprays, Nares, Both, Daily in AM, 0 Refills, Maintenance, 01/14/19 4:05:46 PM EST, [place] Start Date: 01/14/19 Status: Ordered Repeat number: 1 ipratropium nasal 42 mcg/inh spray 2 sprays = 84 mcg, Nares, Both, 3 times a day, # 15 mL, 0 Refills, Maintenance, 02/06/23 11:35:00 AMEST, [place], [facility], 2 sprays Nares, Both 3 times a day, 171, cm, 09/20/22 14:02:00 EDT,Height Start Date: 02/06/23 Status: Ordered Quantity: 15.0 Unit: mL Repeat number: 1 Indications: Acute sinusitis, unspecified; levoFLOXacin 750 mg oral tablet 1 tablet = 750 mg, By Mouth, Every 24 hours, 0 Refills, Maintenance, 06/20/24 2:00:00 PM EDT, Partial fill upon patient request if the prescription is for a schedule II opioid drug. Start Date: 4/17/25 Status: Ordered Repeat number: 1 LORazepam 1 mg oral tablet See Instructions, TAKE 1 TABLET BY MOUTH EVERY 6 HOURS NEEDED FOR ANXIETY FOR 28 DAYS, # 112 tablet, 0 Refills, Maintenance, 06/12/23 12:03:00 PM EDT, [facility], 171, cm, 06/08/23 14:11:00 EDT, Height, 71, kg, 04/27/23 16:25:00 EST, Dry Weight Start Date: 06/12/23 Status: Ordered Quantity: 112.0 Unit: tablet Repeat number: 1 One Touch Ultra Test Strips See Instructions, # 200 each, Refills 5, Tot. Refills 5, Maintenance, Take BG every 2 hours as needed for symptoms of low blood glucose, 08/06/22 9:50:00 PM EDT, Supply, 170, cm, 05/16/22 10:13:00 EDT,Height Start Date: 08/06/22 Status: Ordered Quantity: 200.0 Unit: each Repeat number: 6 Indications: Hypoglycemia, unspecified; One Touch UltraSmart Glucose Meter See Instructions, # 1 each, Maintenance, To check blood glucose as needed, 06/08/22 4:36:00 PM EDT, Supply, 170, cm, 05/16/22 10:13:00 EDT, Height Start Date: 06/08/22 Status: Ordered Quantity: 1.0 Unit: each Repeat number: 1 Indications: Hypoglycemia, unspecified; One Touch UltraSoft Lancets See Instructions, # 200 each, Refills 1, Tot. Refills 1, Maintenance, Use to check blood glucose every 2 hours as needed for symptoms of hypoglycemia, 06/08/22 4:38:00 PM EDT, Supply, 170, cm, 05/16/2309:13:00 EDT, Height Start Date: 06/08/22 Status: Ordered Quantity: 200.0 Unit: each Repeat number: 2 Indications: Hypoglycemia, unspecified; propranolol 10 mg oral tablet 20 mg, 2, tablet, By Mouth, 2 times a day, 180 each, 0 Refill(s), TAKE 1 TABLET (10 MG TOTAL) BY MOUTH 2 (TWO) TIMES A DAY. UPON WAKING AND THEN AFTER 8 HOURS, Refills 0, 06/20/24 1:59:00 PM EDT, Partial fill upon patient request if the prescription is for a schedule II opioid drug. Start Date: 06/20/24 Status: Ordered Repeat number: 1 silver sulfADIAZINE 1% topical cream See Instructions, APPLY 1 APPLICATION TOPICALLY TWICE A DAY FOR 14 DAYS, # 85 Gm, 3 Refills, Maintenance, 03/07/23 4:22:00 AM EST, [id number], APPLY 1 APPLICATION TOPICALLY TWICE A DAY FOR 14 DAYS, 171, cm, 09/20/22 14:02:00 EDT, Height Start Date: 03/07/23 Status: Ordered Quantity: 85.0 Unit: g Repeat number: 4 silver sulfADIAZINE 1% topical cream 1 applicator, Topically, 2 times a day, 0 Refills, Maintenance, 01/14/19 4:06:35 PM EST Start Date: 01/14/19 Status: Ordered Repeat number: 1 silver sulfADIAZINE 1% topical cream 1 application, Topically, 2 times a day, # 50 Gm, 3 Refills, Maintenance, 09/20/22 2:42:00 PM EDT, Cream, [facility], Partial fill upon patient request if the prescription is for a schedule IIopioid drug., 1 application Topically 2 times a day, 171, cm, 09/20/22 14:02:00 EDT, Height Start Date: 09/20/22 Status: Ordered Quantity: 50.0 Unit: g Repeat number: 4 traMADol 50 mg oral tablet 0 Refills, Maintenance, 07/22/24 9:14:00 AM EDT, Partial fill upon patient request if the prescription is for a schedule II opioid drug. Start Date: 07/22/24 Status: Ordered Repeat number: 1 Vitamin D 62047 iu oral capsule 50,000 International_Units, 1, capsule, By Mouth, Daily, Refills 0, Maintenance, 01/14/19 4:03:29 PM EST Start Date: 01/14/19 Status: Ordered Repeat number: 1 Zoloft 25 mg oral tablet See Instructions, Take 1/2 oral tab once daily for 7 days then take 1 tab once daily for 90 days, #90 tablet, 3 Refills, Maintenance, 09/20/22 2:52:00 PM EDT, Tablet, [facility], Partial fillupon patient request if the prescription is for a schedule II opioid drug., 171, cm, 09/20/22 14:02:00 EDT, Height Start Date: 09/20/22 Status: Ordered Quantity: 90.0 Unit: tablet Repeat number: 4 Problem List Condition Confirmation Course Effective Dates Status H ealth Status Informant Acute sinusitis Confirmed Active Allergic rhinitis Confirmed 07/12/13 Active Anxiety Confirmed 07/12/13 Active Jelly's disease Confirmed Active Hypothyroidism Confirmed 07/12/13 Active Leukopenia Confirmed 05/23/16 Active Migraine with aura Confirmed 07/12/13 Active POTS (postural orthostatic tachycardia syndrome) Confirmed Active Recurrent sinusitis Confirmed 06/13/18 Active Vitamin D deficiency Confirmed 08/23/13 Active Social History Social History Type Response Smoking Status Never (less than 100 in lifetime) entered on: 04/12/21 Sex Sex Representation Female (finding) Patient Care team information Care Team Personnel Name: Mattie Raymundo MD Position: Reference Physician Member Role: PCP Address: [address] [place] [address] Telecom: Care Team Related Persons Name: LIAM FRANCIS Name: EVELINA FRANCIS Name: EVELINA FRANCIS Insurance Providers Guarantor name: [employer] Health Plan Information #: 1 Payer: [facility] Payer Identifier: NA Member Number: [id number] Group Number: NA Subscriber Identifier: [id number] Relationship to Subscriber: self Coverage Type: Commercial Managed Care - HMO Coverage Verification Date: NA Telecom: NA Address: [facility] Plan Information #: 2 Payer: [facility] NON P HMO P Payer Identifier: NA Member Number: [id number] Group Number: [id number] Subscriber Identifier: [id number] Relationship to Subscriber: self Coverage Type: Other Private Insurance Coverage Verification Date: NA Telecom: Address:
--- NOTE | 2024-10-01 13:28 | A.OFFPC_ITS ---
Vital Signs 10/01/24 13:40 Height 5 ft 7 in Weight 182 lb 6 oz BMI 28.6 BP 122/84 Blood Pressure Location Lt brachial Position Sitting Respiration 14 Pulse 87 Pulse Source Pulse Oximeter Pulse Oximetry (%) 95 Oxygen Delivery Method Room Air Intake Visit Reasons: f/u thyroid surgery Intake Note: Follow up post thyroid surgery. Next thyroid sugery is 10/29/2024. Sxs of sinus infection: post nasal drip, cheek pain, dry cough, yellow discharge, and fatigue. Tested for covid and flu over the weekend, was negative. Test Development Engineer Required: No Allergies prochlorperazine (From Compazine) Allergy (Unknown, Verified 08/20/24 13:06) Throat closes Tobacco use date assessed: 10/01/24 Dental Screening Dental Screen Date: 10/01/24 Did you have a dental visit in the last 12 months?: No Did you have a dental problem in the last 6 months where you did not have access to dental care?: No Was dental information given to patient?: Patient has dentist HPI HPI Comments History of Present Illness Details 59 y/o female with past medical history of recurrent sinusitis, SVT likely POTS, anxiety & depression, hypothyroid, anemia presenting for follow up Thyroid cancer,Status post left lobectomy and isthmus 07/24/[address] 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 Stage I, pT1b NX. AJCC stage I, DAVID low risk of recurrence. Patient will follow for for near complete thyroidectomy. Interval weight gain. Does report some interval fatigue, sweats, shortness of breath. Requests labs. Anxiety/depression: Doing well on wellbutrin, cymbalta combination, lorazepam. off zoloft which she did tolerate. CV: Following with cardiology, Dr Fenton. SVT, POTS. Taking propranolol Recurrent sinus infection-has seen ENT. Current flare ROS see HPI PHYSICAL EXAM: GENERAL: Alert and oriented x 3. NAD EYES: EOMI. Anicteric. HENT: Moist mucous membranes. No scleral icterus. No cervical lymphadenopathy. LUNGS: Clear to auscultation bilaterally. CARDIOVASCULAR: Regular rate and rhythm. No murmur. No JVD. ABDOMEN: Distended, visibly bloated, tender to palptation +bs, no rebound or rigidity EXTREMITIES: No edema. Non-tender. SKIN: No rashes or lesions. Warm. NEUROLOGIC: No focal neurological deficits. CN II-XII grossly intact PSYCHIATRIC: Cooperative. Appropriate mood and affect [facility] Medical History Thyroid cancer Vitamin D deficiency Multinodular goiter Depression Anxiety Psoriasis Headache Peptic ulcer POTS (postural orthostatic tachycardia syndrome) Palpitations Sinusitis Cyst of ovary Surgical History History of thyroid surgery Hx of dilation and curettage Hx of removal of cyst History of laparoscopic appendectomy Hx of biopsy Family History Father HTN (hypertension) Hypercholesteremia Cardiovascular disease Basal cell carcinoma Mother Hypercholesteremia Thyroid disorder Anxiety Other Mental disorder Social History Housing: House Patient Tobacco Use Status: Never used Tobacco e-Cigarette/Vaping Use: Never Used service: No Current occupational status: employed 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 Current occupational exposures/hazards: No Cognitive needs: No Hearing needs: No Vision needs: Yes (glasses) Questionnaire Thrive Questionnaire Date Thrive assessed: 03/14/24 I am a: Patient What is your living situation today?: I have a steady place to live Within the past 12 months, did the food you bought not last and you didn't have the money to get more?: Never true Within the past 12 months, did you worry whether your food would run out before you got money to buy more?: Never true Do you have trouble paying for medicines?: No Do you have trouble getting transportation to medical appointments?: No Do you have trouble paying your heating and electricity bill?: No Do you have trouble taking care of your child, family member or friend?: No Do you have trouble with day-to-day activities such as bathing, preparing meals, shopping, managing finances, etc.?: No Are you currently unemployed and looking for a job?: No Are you interested in more education?: No Please select the resources that you would like help with: None Currently or been in a relationship where the following occur: I choose not to answer THRIVE Score: 0 AUDIT C Alcohol Use Questionnaire (AUDIT-C) 1. How often do you have a drink containing alcohol?: Never 3. How often do you have six or more drinks on one occasion?: Never Total Score: 0 TANVI-7 AMB Questionnaire TANVI-7 Date TANVI - 7 assessed: 09/01/23 Source: Developed by Drs. Konstantin Joy, Cata Romero, Román Cagle and colleagues, with an educational jarett from [employer]. Physical exam (Primary Care) Vital Signs: Last Vital Signs Pulse 87 10/01/24 13:40 Resp 14 10/01/24 13:40 BP 122/84 10/01/24 13:40 Pulse Ox 95 10/01/24 13:40 Oxygen Delivery Method Room Air 10/01/24 13:40 BMI result Body Mass Index 28.6 Tobacco/Smoking Status: Tobacco use Status Tobacco use date assessed 10/01/24 10/01/24 13:31 Patient Tobacco Use Status Never used Tobacco 10/01/24 13:44 e-Cigarette/Vaping Use Never Used 10/01/24 13:31 Thrive Assessment: Date of Thrive Assessment Date Thrive assessed 03/14/24 10/01/24 13:31 Currently or been in a relationship where the following occur: I choose not to answer Coding Level of Care Code Est Pt Level 4 (78802) Complex EM visit Add On G2211 Diagnoses Depression, major, recurrent, in partial remission F33.41 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 E03.8; E06.3 Hypothyroidism type: due to Jelly's thyroiditis Fatigue, unspecified type R53.83 Fatigue type: unspecified Night sweats R61 Assessment & Plan Assessment & Plan (1) Depression, major, recurrent, in partial remission: Code(s): F33.41 - Major depressive disorder, recurrent, in partial remission Category: Medical (2) Hypothyroid: Code(s): E03.9 - Hypothyroidism, unspecified Category: Medical Qualifiers: Hypothyroidism type: due to Jelly's thyroiditis Qualified Code(s): E03.8 - Other specified hypothyroidism; E06.3 - Autoimmune thyroiditis (3) Fatigue: Code(s): R53.83 - Other fatigue Category: Medical Qualifiers: Fatigue type: unspecified Qualified Code(s): R53.83 - Other fatigue (4) Night sweats: Code(s): R61 - Generalized hyperhidrosis Category: Medical Plan Thyroid cancer-continue follow up endocrine, surgery Fatigue, night sweats-labs ordered Subacute sinusitis-doxycycline sent. recent tick bite. Orders: Orders TSH reflex Free T4 10/01/24 C73 - Malignant neoplasm of thyroid gland, R53.83 - Other fatigue, R61 - Generalized hyperhidrosis, R68.89 - Other general symptoms and signs Vitamin B12 and Folate 10/01/24 C73 - Malignant neoplasm of thyroid gland, R53.83 - Other fatigue, R61 - Generalized hyperhidrosis, R68.89 - Other general symptoms and signs Complete Blood Count Auto Diff 10/01/24 C73 - Malignant neoplasm of thyroid gland, R53.83 - Other fatigue, R61 - Generalized hyperhidrosis, R68.89 - Other general symptoms and signs Tick-borne Disease Molecular 10/01/24 C73 - Malignant neoplasm of thyroid gland, R53.83 - Other fatigue, R61 - Generalized hyperhidrosis, R68.89 - Other general symptoms and signs Monotest 10/01/24 R53.83 - Other fatigue IRON PROFILE 10/01/24 C73 - Malignant neoplasm of thyroid gland, R53.83 - Other fatigue, R61 - Generalized hyperhidrosis, R68.89 - Other general symptoms and signs Lyme IgG/IgM w/reflex to WB 10/01/24 C73 - Malignant neoplasm of thyroid gland, R53.83 - Other fatigue, R61 - Generalized hyperhidrosis, R68.89 - Other general symptoms and signs Erythrocyte Sedimentation Rate 10/01/24 C73 - Malignant neoplasm of thyroid gland, R53.83 - Other fatigue, R61 - Generalized hyperhidrosis, R68.89 - Other general symptoms and signs D Dimer High Sensitivity 10/01/24 R06.02 - Shortness of breath Urine Culture 10/01/24 R53.83 - Other fatigue, R61 - Generalized hyperhidrosis Medications: New doxycycline hyclate 100 mg PO BID 20 tabs 0RF tretinoin 0.1% 1 appl topical BEDTIME 45 grams 3RF Refilled lorazepam 1 mg PO Q6H PRN 112 tabs 0RF anxiety 28 days
[2024-10-01 13:40] VITALS: BP 122/84; PULSE 87; RESP 14; O2SAT 95; BMI 28.6
--- OUTSIDE RECORDS SUMMARY | 2024-10-01 14:06 | XMS_ITS | Clinical Summary ---
Author Organization Formerly [facility] Address [address] [place] [address] Care Team Providers Care Actuarial Trainee Name Role Phone Mattie Raymundo MD Primary Care Provider [phone] Allergies Active Allergy Reactions Criticality Noted Date Comments Prochlorperazine Anaphylaxis High 11/14/2023 Medications buPROPion (WELLBUTRIN XL) 150 MG 24 hr tablet Take 1 tablet (150 mg total) by mouth every morning. 4 Active butalbital-acetam inophen-caffeine (FioriCET, ESGIC) 50-325-40 mg tablet Take 1 tablet by mouth 4 times daily (every 6 hours) as needed. 4 Active DULoxetine (CYMBALTA) 60 MG capsule Take 1 capsule (60 mg total) by mouth daily. 4 Active levothyroxine (SYNTHROID, LEVOTHROID) 75 MCG tablet Take 1 tablet (75 mcg total) by mouth daily on an empty stomach. 4 Active LORazepam (ATIVAN) 1 MG tablet Take 1 tablet (1 mg total) by mouth 4 times daily (every 6 hours) as needed for anxiety. 4 Active Ciclopirox (PENLAC) 8 % Kit Apply [...] topically daily. Active propranolol (INDERAL) 10 MG tabletIndications :POTS (postural orthostatic tachycardia syndrome) Take 1 tablet (10 mg total) by mouth 2 (two) times a day. Upon waking and then after 8 hours 60 tablet 5 5 10/06/19 25 Active Social History Tobacco Use Types Packs/Day Years Used Date Smoking Tobacco: Never Assessed Comments Unknown Sex and Gender Information Value Date Recorded Sex Assigned at Female 10/18/2023 10:55 AM EDT Legal Sex Female 6:18 PM EST Gender Identity Female 10/18/2023 10:55 AM EDT [...] 1977 DTaP/Tdap/Td Vaccines (1 - Tdap) 06/22/1983 Pap Smear (Ages 21-65) 1985 Mammogram 2004 Colonoscopy 2009 Pneumococcal Vaccines 50+ (1 of 1 - PCV) 2014 Zoster (Shingles) Vaccine (1 of 2) 2014 COVID-19 Vaccine ( - 2023-2 5 season) 2023 Influenza Vaccine 10/04/2024 RSV Vaccine 60 years and old er and Patients (1 - 1-dose 75+ series) 06/22/2039 Hepatitis B Vaccines Aged Out No long er eligible based on patient's age to complete this topic Insurance [facility] Care Teams Actuarial Trainee Relationship Specialty Start Date End Date Mattie Raymundo MD [address] [place] [phone] PCP - General Internal Medicine 10/18/23
--- OUTSIDE RECORDS SUMMARY | 2024-10-01 14:06 | XMS_ITS ---
Author Name [facility] Organization Unknown History of Medication Use Medication Directions Dispensed Refills Start Date End Date Stat us propranolol (INDERAL) 10 MG tablet Take 1 tablet (10 mg total) by mouth 2 (two) times a day. Upon waking and then after 8 hours 11/14/2023 active buPROPion (WELLBUTRIN XL) 150 MG 24 hr tablet Take 1 tablet (150 mg total) by mouth every morning. 10/21/2023 active clotrimazole (LOTRIMIN) 1 % cream Apply topically 2 (two) times a day. active Allergies Allergen Reaction Severity Comment Documented Date Source Statu s PROCHLORPERAZINE ANAPHYLAXIS 11/14/2023 CCT active Problems Problem Status Onset Date Problem Type Date of Resoluti on Source POTS (postural orthostatic tachycardia syndrome) active EncounterDiagnosisAct CCT Encounters Encounter Type Encounter Reason Primary Diagnosis Location Date Ambulatory [facility] 01/19/2024 Ambulatory Other abnormalities of heart beat Other abnormalities of heart beat [facility] 11/14/2023 Care Team Organization Name Specialty Phone Email Start Date End [facility] Mattie Raymundo Primary Care 11/14/2023 05/23/19 [facility] 10/18/2023 [facility] Matt[facility] Raymundo [facility] 10/18/2023 [facility] Camelia Smith Primary Care 01/11/2022
--- OUTSIDE RECORDS SUMMARY | 2024-10-01 14:06 | XMS_ITS | Encounter Summary ---
Author Organization [employer] [facility] Address [address] [place] [address] Care Team Providers Care Peripheral Equipment Operator Name Role Phone Saman Gomes MD Primary Care Provider Unavail able Mattie Louise MD Primary Care Provider Unavaila ble [facility], Pcp Primary Care Provider Unavailabl e Mattie Louise MD Primary Care Provider Unavaila [facility], Pcp Primary Care Provider Unavailabl e Encounter Details Date Type Department Care Team Description 08/11/2014 Transfer Records Medical Records [address] [place] [address] Social History Tobacco Use Types Packs/Day Years [...] on filedocumented in this encounter Care Teams Peripheral Equipment Operator Relationship Specialty Start Date End Date Saman [...]
== END 2024-10-01 14:26 | disposition home or self-care (01) ==
LOC: HO.HMCFM 13:18
PROVIDERS: PCP Internal Medicine; Visit Provider Internal Medicine
DX: F33.41 Major depressive disorder, recurrent, in partial remission (principal); E03.8 Other specified hypothyroidism; E06.3 Autoimmune thyroiditis; R53.83 Other fatigue; R61 Generalized hyperhidrosis

== ENCOUNTER 2024-10-01 14:32 | Outpatient (REF) | payer OTHER, SELFPAY ==
[2024-10-01 18:03] LABS: MANUAL DIFF FLAG NO
[2024-10-01 18:16] LABS: Hematocrit 37.6 % (37.0-47.0); Hemoglobin 11.4 g/dl (12.0-16.0); Imm Gran Abs Auto 0.02 X10*3/uL (0.00-0.03); Imm Gran Pct Auto 0.4 % (0.0-0.4); Lymphocytes Absolute Auto 1.9 X10*3/uL (1.2-4.9); Mean Corpuscular HGB Conc 30.3 g/dl (31.0-35.0); Mean Corpuscular Hemoglobin 23.6 pg (27.0-33.0); Mean Corpuscular Volume 77.8 fL (80.0-98.0); NRBC Abs Auto 0.000 X10*3/uL (0.0-0.012); NRBC Pct Auto 0.0 /100WBC (0.0-0.2); Platelet Count 291 X10*3/uL (160-400); Red Blood Count 4.83 X10*6/uL (4.20-5.50); White Blood Count 5.7 X10*3/uL (4.8-10.8)
[2024-10-01 18:24] LABS: D Dimer High Sensitivity < 150 NG/ML
[2024-10-01 18:27] LABS: Anion Gap 14 (12-20); Blood Urea Nitrogen 15 mg/dL (9-16); Calcium 8.9 mg/dL (8.4-10.2); Carbon Dioxide 26 mmol/L (22-29); Chloride 105 mmol/L (96-108); Estimated Glomerular Filt Rate 57; Iron 35 mcg/dL (30-160); Percent Iron Saturation 9 % (15-50); Potassium 3.9 mmol/L (3.3-5.1); Sodium 141 mmol/L (135-145); Total Iron Binding Capacity 394 mcg/dL (228-428); Unsaturated Iron Binding 359 ug/dL
[2024-10-01 18:46] LABS: Free T4 (Free Thyroxine) 0.76 ng/dL (0.71-1.85); Thyroid Stimulating Hormone 6.68 uIU/mL (0.32-4.0)
[2024-10-01 18:56] LABS: Folate 7.6 ng/mL (> or = 4.0); Vitamin B12 210 pg/mL (200-900)
[2024-10-02 17:44] LABS: A. Phagocytphilium DNA,RT-PCR NOT DETECTED (NOT DETECTED); Babesia Microti DNA, RT-PCR NOT DETECTED (NOT DETECTED); Borrelia Miyamotoi,DNA RT-PCR NOT DETECTED (NOT DETECTED); E.Chaffeensis DNA RT-PCR NOT DETECTED (NOT DETECTED); Lyme(Borrelia ssp)DNA RT-PCR NOT DETECTED (NOT DETECTED)
[2024-10-02 19:19] LABS: Lyme Abs Screen <0.90 index
== END 2024-10-01 14:33 | disposition home or self-care (01) ==
LOC: HO.WFDLDS 14:32
PROVIDERS: Referring Provider Student in an Organized Health Care Education/Training Program; Visit Provider Internal Medicine
DX: C73 Malignant neoplasm of thyroid gland (principal); E03.8 Other specified hypothyroidism; E06.3 Autoimmune thyroiditis; R14.0 Abdominal distension (gaseous); R61 Generalized hyperhidrosis; R68.89 Other general symptoms and signs; R53.83 Other fatigue; R06.02 Shortness of breath; R10.9 Unspecified abdominal pain
CPT/HCPCS: 36415; 80048; 82607; 82746; 83540; 84439; 84443; 85025; 85379; 85652; 86308; 86617; 86618; 87086; 87468; 87469; 87478; 87484; 87798

== ENCOUNTER 2024-11-29 13:48 | Outpatient (REF) | payer OTHER, SELFPAY ==
--- OUTSIDE RECORDS SUMMARY | 2024-11-29 14:59 | XMS_ITS | Clinical Summary ---
Author Organization [facility] Address [address] [place] [address] Care Team Providers Care Switchman Name Role Phone Mattie Raymundo MD Primary Care Provider [phone] Allergies Active Allergy Reactions Criticality Noted Date [...] then after 8 hours 60 tablet 5 Active Social History Tobacco Use Types Packs/Day [...] Zoster (Shingles) Vaccine (1 of 2) 2014 RSV Vaccine 60 years and old er and Patients (1 - Risk 60-74 years 1-dose series) 2024 Influenza Vaccine 10/04/2024 COVID-19 Vaccine (2023-2 5 season) 2024 Hepatitis B Vaccines Aged Out No long er eligible based on patient's age to complete this topic Insurance [facility] Care Teams Switchman Relationship Specialty Start Date End Date Mattie Raymundo MD [address] [place] [phone] PCP - General Internal Medicine 10/18/23
[2024-11-29 18:49] LABS: Free T4 (Free Thyroxine) 1.05 ng/dL (0.71-1.85); Thyroid Stimulating Hormone 0.28 uIU/mL (0.32-4.0)
[2024-11-30 08:13] LABS: Thyroglobulin 0.2 ng/mL; Thyroglobulin Antibodies <1 IU/mL (< or = 1)
== END 2024-11-29 13:49 | disposition home or self-care (01) ==
LOC: HO.WFDLDS 13:48
PROVIDERS: Visit Provider Student in an Organized Health Care Education/Training Program
DX: C73 Malignant neoplasm of thyroid gland (principal); E06.3 Autoimmune thyroiditis; E03.8 Other specified hypothyroidism
CPT/HCPCS: 36415; 84432; 84439; 84443; 86800

== ENCOUNTER 2024-12-04 14:09 | Outpatient (AMB) | payer OTHER, SELFPAY ==
[2024-12-04 14:16] VITALS: BP 122/80; PULSE 74; O2SAT 97; BMI 29.3
--- NOTE | 2024-12-04 14:16 | A.OFFVIS_ITS ---
Vital Signs 3 12/04/24 14:16 Height 5 ft 7 in Weight 187 lb 6.287 oz BMI 29.3 BP 122/80 Blood Pressure Location Lt brachial Position Sitting Pulse 74 Pulse Source Pulse Oximeter Pulse Oximetry (%) 97 Oxygen Delivery Method Room Air Intake Visit Reasons: Hypothyroid Intake Note: Patient present today for Hypothyroid office visit. Puppy Sitter Required: No Accompanied by: Daughter Allergies prochlorperazine (From Compazine) Allergy (Unknown, Verified 12/04/24 14:20) Throat closes Medication List - Last Reconciled 12/04/24 by Karen Cosby MD blood sugar diagnostic (MiiPharos Ultra Test strips) As directed bupropion HCl XL (Wellbutrin XL) 150 mg PO QAM qbtwyzskpi-smbmtkdddxnlr-jhag 50-325-40 mg 1 tab PO Q6H PRN 30 days clobetasol 0.05% topical DAILY clotrimazole-betamethasone 1-0.05 % 1 appl topical BID duloxetine 60 mg PO DAILY fluticasone propionate 50 mcg/actuation 1 spray intranasal BID levothyroxine (Synthroid) 125 mcg PO DAILY lorazepam 1 mg PO Q6H PRN 28 days propranolol 10 mg PO BID sertraline 25 mg PO DAILY silver sulfadiazine 1% appl topical tramadol 50 mg PO Q6H PRN tretinoin 0.1% 1 appl topical BEDTIME HPI Comments Details: 59-year-old female coming in today for follow up of thyroid cancer,Status post left lobectomy and isthmus 07/24/[address] 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 Status post completion right thyroidectomy 10/29/24 with pathology benign Stage I, pT1b NX. AJCC stage I, DAVID low versus low-intermediate risk of recurrence. HPI from prior visit Hypothyrodism was diagnosed 2016 and fabienne was on levothyroxine 75 mcg daily for a few years but was not very regular with it. She has now been off it for at least a year. blood work from 07/27 showed TSH high at 7.8 and normal free T4 , however she remained off the medication and then labs from 11/30/23 were normal TSH at 3.73. Diagnosed with thyroid nodules in 2013 Was following at [place] underwent FNA 2014 in [place] she thinks , was benign not sure how many nodules or which side. 09/26: Ultrasound from September 2023, I reviewed the images myself which show multiple bilateral thyroid nodules. She has a left dominant 2.3 cm solid hypoechoic nodule, TR 4 category, per DAVID this is intermediate suspicion nodule with a 10-20% chance of malignancy. Meets criteria for FNA. On the right side she has a dominant 1.1 cm right lower pole nodule which is reported as taller than wide and lobulated making it a TR 5 category nodule, however when I look at the images myself, it is not very distinguished nodule, almost appears as if she has a pseudonodule. Given her history of Jlely's/hypothyroidism, she might have pseudonodules. I would like to hold off on biopsy of this nodule for now, we will look at it with the ultrasound briefly when I biopsy her left dominant nodule. Another subcentimeter right lower pole nodule 0.9 cm in maximum dimension does not meet criteria for biopsy, solid, isoechoic, TR 3 nodule, low suspicion category per DAVID guidelines with a 5-10% chance malignancy. 12/27/2023: Underwent FNA biopsy of the left dominant 2.3 cm nodule on 12/27/2023, which came back as nondiagnostic [place] category 1. labs 12/27/2023 showed normal thyroid function. 04/03/2024: Repeat FNA of the left dominant 2.3 cm nodule on 04/03/2024 came back as suspicious for follicular neoplasm [place] category 4, however unfortunately Afirma came back as no results due to low RNA yield. 05/08/2024: FNA again repeated 05/08/2024 of the dominant left midpole 2.3 cm nodule to get molecular testing results which on cytology was now labeled as AUS with nuclear atypia, [place] category 3, Afirma came back as suspicious 50% risk of malignancy Patient denies any history of childhood neck radiation. Denies having ever used lithium, amiodarone or biotin supplements. Patient denies any family history of thyroid cancer or thyroid disease. Daughter has thyroid nodules and Hashimotos. 07/24/2024: Status post left lobectomy and isthmus 07/24/[address] 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 Stage I, pT1b NX. AJCC stage I, DAVID low risk of recurrence. 08/19/2024: TSH 13.47, free T4 0.85 Pending completion thyroidectomy, waiting to hear from the surgical office. Overall she did well postoperatively, feels swallowing is better and that voice is also better. No calcium issues after the surgery. Interval history 10/29/2024 status post right completion thyroidectomy which showed benign results with follicular nodular disease and Jelly's thyroiditis Post surgery started on levothyroxine 125 mcg daily. 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[facility] [employer] Physical exam General: sitting comfortably in no acute distress HEENT: normocephalic/atraumatic, Neck: supple, surgical scar healing well Cardiac: normal heart sounds Pulm: normal breath sounds B/L, no added breath sounds Abd: not distended, no tenderness Laboratory Tests 12/27/23 09:00 TSH 3.53 Free T4 0.74 Laboratory Tests 04/17/24 15:07 TSH 4.24 H Free T4 0.86 Laboratory Tests 06/03/24 08/19/24 09:58 10:50 25-OH Vitamin D Total 21.3 L TSH 3.16 13.47 H Free T4 0.86 0.85 Laboratory Tests 11/29/24 13:56 TSH 0.28 L Free T4 1.05 Thyroglobulin 0.2 H Thyroglobulin Antibody <1 Laboratory Tests 07/20/23 11/28/23 11:22 13:57 TSH 7.86 H 3.73 Free T4 0.74 Laboratory Tests 12/27/23 09:00 TSH 3.53 Free T4 0.74 EXAMINATION: US THYROID 09/2023 CLINICAL INFORMATION: Other specified hypothyroidism. COMPARISON: None available. TECHNIQUE: Linear transducer grayscale and color Doppler examination with attention to the region of the thyroid. FINDINGS: SIZE: Measurements of the thyroid lobes and nodules are given in sagittal, anteroposterior and transverse dimensions respectively. Right Thyroid Lobe: 5.5 x 1.8 x 1.4 cm, volume 7.2 mL. Parenchyma: The gland echotexture is heterogeneous. Thyroid vascularity is increased. Left Thyroid Lobe: 5.0 x 2.0 x 2.0 cm, volume 10.5 mL. Parenchyma: The gland echotexture is heterogeneous. Thyroid vascularity is increased. Isthmus: 0.3 cm in maximum AP dimension. Estimated total number of nodules greater than or equal to 1 cm: 1. Drilling Machine Operator nodules are described as follows: 1. Location: Right lower pole. Size: 1.1 x 1.0 x 0.8 cm, volume 0.5 mL. Nodule characteristics: Composition: Solid (2). Echogenicity: Hyperechoic (1). Shape: Taller than wide (3). Margins: Lobulated (2). Echogenic Foci: None (0). ACR TI-RADS total points: 8. ACR TI-RADS category: 5. 2. Location: Right lower pole. Size: 0.9 x 0.8 x 0.9 cm, volume 0.3 mL. Nodule characteristics: Composition: Solid (2). Echogenicity: Isoechoic (1). Shape: Not taller than wide (0). Margins: Smooth (0). Echogenic Foci: None (0). ACR TI-RADS total points: 3. ACR TI-RADS category: 3. 3. Location: Left midpole. Size: 2.3 x 1.6 x 1.7 cm, volume 3.1 mL. Nodule characteristics: Composition: Solid (2). Echogenicity: Hypoechoic (2). Shape: Not taller than wide (0). Margins: Smooth (0). Echogenic Foci: None (0). ACR TI-RADS total points: 4. ACR TI-RADS category: 4. NODES: No lymphadenopathy is seen in the tissue surrounding the thyroid gland. US/US thyroid IMPRESSION: 1.1 cm right TR5 thyroid nodule meets criteria for biopsy. Fine-needle aspiration recommended if not already performed. 2.3 cm left TR4 thyroid nodule meets criteria for biopsy. Fine-needle aspiration recommended if not already performed. This study was presented to me on November 20, 2023 for interpretation. [facility] staff will provide results to referring provider at this time. Results provided to referring physician as requested. [facility] Medical History Thyroid cancer Vitamin D deficiency Multinodular goiter Depression Anxiety Psoriasis Headache Peptic ulcer POTS (postural orthostatic tachycardia syndrome) Palpitations Sinusitis Cyst of ovary Surgical History History of thyroid surgery Hx of dilation and curettage Hx of removal of cyst History of laparoscopic appendectomy Hx of biopsy Family History Father HTN (hypertension) Hypercholesteremia Cardiovascular disease Basal cell carcinoma Mother Hypercholesteremia Thyroid disorder Anxiety Other Mental disorder Social History Housing: House Patient Tobacco Use Status: Never used Tobacco e-Cigarette/Vaping Use: Never Used service: No Current occupational status: employed 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 Current occupational exposures/hazards: No Cognitive needs: No Hearing needs: No Vision needs: Yes (glasses) Physical Exam Vital Signs: Last Vital Signs Pulse 74 12/04/24 14:16 BP 122/80 12/04/24 14:16 Pulse Ox 97 12/04/24 14:16 Oxygen Delivery Method Room Air 12/04/24 14:16 BMI result Body Mass Index 29.3 Assessment & Plan Assessment & Plan (1) Thyroid cancer: Code(s): C73 - Malignant neoplasm of thyroid gland Category: Medical Plan: 59-year-old female with no family history of thyroid cancer, with no personal history of head or neck radiation who was found to have multinodular goiter, also with a history of Jelly's disease, coming in today for follow up of thyroid cancer,Status post left lobectomy and isthmus 07/24/[address] 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 Status post completion thyroidectomy 10/29/2024: With a benign pathology. Stage I, pT1b NX. AJCC stage I, DAVID low versus low-intermediate risk of recurrence because of positive margins. She did not have any surgical complications, did not require any calcium supplements, postoperative parathyroid hormone level was [facility] at [facility]. This is reassuring. She is having some trouble with weight gain, insomnia, anxiety since the surgery, voice is improving slowly. Labs done 5 weeks postoperatively 11/29/2024: TSH 0.28, free T4 1.05, TG 0.2, TG antibody less than 1 I had a detailed discussion with the patient today, that given low versus low- intermediate risk of recurrence, with TG level being so reassuring 5 weeks postoperatively, for now we can consider holding off on the radioactive iodine ablation and monitor thyroglobulin levels closely. In patients with low risk of recurrence disease, remnant ablation has not shown improvement with regards to reducing risk of recurrence or disease specific mortality. I explained to her what is involved in radioactive iodine ablation and common risks of sialadenitis, radiation thyroiditis, rare possibility of increased secondary risk of cancer. I explained to her that if we do to do remnant ablation it is a very small dose in the risk of secondary cancers as very minimal. However that we also have the option of holding off on remnant ablation for now in monitoring her closely. Patient understands the risk of recurrence with a low versus low intermediate risk of recurrence, however feels comfortable with the us monitoring her closely for now. Given low/low intermediate risk of recurrence with a detectable but low TG, for now we will try to keep TSH between 0.1-0.5. Plan: -continue levothyroxine 125 mcg daily -repeat TSH, free T4, TG, TG antibody levels in 4 weeks -follow up in 3 months All questions were answered, patient verbalized understanding (2) Hypothyroid: Code(s): E03.9 - Hypothyroidism, unspecified Category: Medical Qualifiers: Hypothyroidism type: due to Jelly's thyroiditis Qualified Code(s): E03.8 - Other specified hypothyroidism; E06.3 - Autoimmune thyroiditis Plan: Given low/low intermediate risk of recurrence with a detectable but low TG, for now we will try to keep TSH between 0.1-0.5. Plan: -continue levothyroxine 125 mcg daily -repeat TSH, free T4, TG, TG antibody levels in 4 weeks Plan I spent 45 minutes in reviewing the record, seeing the patient and documenting in the medical record. Orders: Orders 2 Thyroglobulin Tumor Marker 4 Weeks C73 - Malignant neoplasm of thyroid gland, E03.8 - Other specified hypothyroidism, E06.3 - Autoimmune thyroiditis Thyroglobulin Antibodies 4 Weeks C73 - Malignant neoplasm of thyroid gland, E03.8 - Other specified hypothyroidism, E06.3 - Autoimmune thyroiditis Thyroid Stimulating Hormone 4 Weeks C73 - Malignant neoplasm of thyroid gland, E03.8 - Other specified hypothyroidism, E06.3 - Autoimmune thyroiditis Free T4 (Free Thyroxine) 4 Weeks C73 - Malignant neoplasm of thyroid gland, E03.8 - Other specified hypothyroidism, E06.3 - Autoimmune thyroiditis Thyroid Peroxidase Antibodies 4 Weeks C73 - Malignant neoplasm of thyroid gland, E03.8 - Other specified hypothyroidism, E06.3 - Autoimmune thyroiditis Medications: New 2 levothyroxine (Synthroid) 125 mcg PO DAILY 90 tabs 2RF Patient Instructions: Continue levothyroxine 125 mcg daily Do blood work in 4 weeks which would be the last week of December, please expect a call from us with the results Follow up in April 2025 Coding Level of Care Code Est Pt Level 5 (39270) Complex EM visit Add On G2211 Diagnoses Thyroid cancer C73 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
--- OUTSIDE RECORDS SUMMARY | 2024-12-04 15:27 | XMS_ITS | Clinical Summary ---
Author Organization [facility] Address [address] [place] [address] Care Team Providers Care Financial Analyst Accountant Name Role Phone Mattie Raymundo MD Primary Care Provider [phone] Allergies Active Allergy Reactions Criticality Noted Date [...] patient's age to complete this topic Insurance [facility] Care Teams Financial Analyst Accountant Relationship Specialty Start Date End Date Mattie Raymundo MD [address] [place] [phone] PCP - General Internal Medicine 10/18/23
== END 2024-12-04 15:05 | disposition home or self-care (01) ==
LOC: HO.ENCR 14:10
PROVIDERS: PCP Internal Medicine; Visit Provider Student in an Organized Health Care Education/Training Program
DX: C73 Malignant neoplasm of thyroid gland (principal); E03.8 Other specified hypothyroidism; E06.3 Autoimmune thyroiditis
CPT/HCPCS: 99215

== ENCOUNTER 2024-12-30 12:23 | Outpatient (REF) | payer OTHER, SELFPAY ==
--- OUTSIDE RECORDS SUMMARY | 2024-12-25 23:59 | XMS_ITS | Continuity of Care Document ---
Author Organization [facility] Address [address] [place] [address] [address] [place] [address]- Care Team Providers Care Retort Operator Name Role Phone Breanne BAEZ, Mattie Daugherty Primary Care Physician Encounter [facility] Date(s): 11/25/24 - 12/25/[address] [place], [place] [id number] Encounter Type: Triage Allergies, Adverse Reactions, Alerts [...] Dry Weight Start Date: 05/29/23 Status: Ordered Medication Dispense Status: Completed Quantity: 112.0 Unit: tablet Total Allowed Fills: 4 Fills Dispensed: 0 acetaminophen/butalbital/caffeine 325 mg-50 mg-40 mg oral tablet [...] Date: 04/26/22 Stop Date: 05/24/22 Status: Ordered Medication Dispense Status: Completed Quantity: 112.0 Unit: tablet Total Allowed Fills: 1 Fills Dispensed: 0 amoxicillin 500 mg oral tablet 4 tablet = 2,000 mg, By Mouth, Once, PRN dental work, # 20 tablet, 3 Refills, Soft Stop, 04/18/23 2:10:00 PM EST, Tablet, [id number], Partial fill upon patient request if the prescription is for a schedule II opioid drug., 171, cm, 03/14/23 12:55:00 EST, Height Start Date: 04/18/23 Status: Ordered Medication Dispense Status: Completed Quantity: 20.0 Unit: tablet Total Allowed Fills: 4 Fills Dispensed: 0 aspirin 325 mg oral capsule 1 capsule = 325 mg, By Mouth, Every 4 hours, 0 Refills, Maintenance, 10/21/24 12:51:00 PM EDT, Partial fill upon patient request if the prescription is for a schedule II opioid drug. Start Date: 10/21/24 Status: Ordered Medication Dispense Status: Completed Total Allowed Fills: 1 Fills Dispensed: 0 azelastine 137 mcg/inh (0.1%) nasal spray See Instructions, USE 2 SPRAYS INTO BOTH NOSTRIL DAILY NEEDED FOR ALLERGIES, # 90 Unknown, 1 Refills, Maintenance, 03/17/23 5:27:00 AM EST, [id number], 90, USE 2 SPRAYS INTO BOTH NOSTRIL DAILY NEEDED FOR ALLERGIES, 171, cm, 03/14/23 12:55:00 EST, Height Start Date: 03/17/23 Status: Ordered Medication Dispense Status: Completed Quantity: 90.0 Unit: Unknown Total Allowed Fills: 2 Fills Dispensed: 0 betamethasone-clotrimazole 0.05%-1% topical cream 1 application, Topically, 2 times a day, # 45 Gm, 3 Refills, Maintenance, 09/20/22 2:42:00 PM EDT, Cream, [facility], Partial fill upon patient request if the prescription is for a schedule IIopioid drug., 1 application Topically 2 times a day, 171, cm, 09/20/22 14:02:00 EDT, Height Start Date: 09/20/22 Status: Ordered Medication Dispense Status: Completed Quantity: 45.0 Unit: g Total Allowed Fills: 4 Fills Dispensed: 0 buPROPion 150 mg/24 hours (XL) oral tablet, extended release 1 tablet = 150 mg, 0 Refills, Maintenance, 09/20/23 2:15:00 PM EDT, Partial fill upon patient request if the prescription is for a schedule II opioid drug. Start Date: 09/20/23 Status: Ordered Medication Dispense Status: Completed Total Allowed Fills: 1 Fills Dispensed: 0 ciclopirox 8% topical solution 1 application, Topically, Daily, # 9.9 mL, 3 Refills, Maintenance, 12/19/22 1:04:00 PM EDT, Solution, [facility], Partial fill upon patient request if the prescription is for a schedule II opioid drug., 1 application Topically Daily, 171, cm, 09/20/22 14:02:00 EDT, Height Start Date: 12/19/22 Status: Ordered Medication Dispense Status: Completed Quantity: 9.9 Unit: mL Total Allowed Fills: 4 Fills Dispensed: 0 Clobetasol (Eqv-Temovate) 0.05% topical cream See Instructions, APPLY A THIN FILM TO AFFECTED AREA, # 30 Gm, 1 Refills, Maintenance, 11/09/22 10:55:00 AM EDT, [id number], 30, APPLY A THIN FILM TO AFFECTED AREA, 171, cm, 09/20/22 14:02:00 EDT,Height Start Date: 11/09/22 Status: Ordered Medication Dispense Status: Completed Quantity: 30.0 Unit: g Total Allowed Fills: 1 Fills Dispensed: 0 clotrimazole 1% topical cream 1 application, Topically, 2 times a day, apply around the nail daily, # 12 Gm, 0 Refills, Maintenance, 07/05/21 11:28:00 AM EDT, Cream, [facility] #1234, Partial fill upon patient request if the prescription is for a schedule II opioid drug., 1 application Topically 2 times a day,Instr:apply aroundthe nail daily, 170, cm, 04/12/21 10:38:00 EST, Height Start Date: 07/05/21 Status: Ordered Medication Dispense Status: Completed Quantity: 12.0 Unit: g Total Allowed Fills: 1 Fills Dispensed: 0 duloxetine 60 mg oral enteric coated capsule 1 capsule, By Mouth, Daily, # 90 capsule, 3 Refills, Maintenance, 06/15/23 2:39:00 PM EDT, [facility] [id number], 171, cm, 06/08/23 14:11:00 EDT, Height, 71, kg, 04/27/23 16:25:00 EST, Dry Weight Start Date: 06/15/23 Status: Ordered Medication Dispense Status: Completed Quantity: 90.0 Unit: capsule Total Allowed Fills: 1 Fills Dispensed: 0 Flonase 50 mcg/inh nasal spray 2 sprays, Nares, Both, Daily in AM, 0 Refills, Maintenance, 01/14/19 4:05:46 PM EST, [place] Start Date: 01/14/19 Status: Ordered Medication Dispense Status: Completed Total Allowed Fills: 1 Fills Dispensed: 0 ipratropium nasal 42 mcg/inh spray 2 sprays = 84 mcg, Nares, Both, 3 times a day, # 15 mL, 0 Refills, Maintenance, 02/06/23 11:35:00 AMEST, [place], [facility], 2 sprays Nares, Both 3 times a day, 171, cm, 09/20/22 14:02:00 EDT,Height Start Date: 02/06/23 Status: Ordered Medication Dispense Status: Completed Quantity: 15.0 Unit: mL Total Allowed Fills: 1 Fills Dispensed: 0 Indications: Acute sinusitis, unspecified; levothyroxine 125 mcg (0.125 mg) oral tablet 1 tablet = 125 mcg, By Mouth, Daily, # 30 tablet, 2 Refills, Maintenance, 10/29/24 3:56:00 PM EDT, Tablet, [facility] #1234, Partial fill upon patient request if the prescription is for a schedule II opioid drug., 170.18, cm, 10/29/24 13:34:00 EDT, Height, 82.3, kg, 10/29/24 13:34:00 EDT, Dry Weight Start Date: 10/29/24 Stop Date: 01/27/25 Status: Ordered Medication Dispense Status: Completed Quantity: 30.0 Unit: tablet Total Allowed Fills: 3 Fills Dispensed: 0 levothyroxine 50 mcg (0.05 mg) oral capsule 1 capsule = 50 mcg, By Mouth, Daily, # 30 capsule, 0 Refills, Maintenance, 10/21/24 12:56:00 PM EDT,Capsule, Partial fill upon patient request if the prescription is for a schedule II opioid drug. Start Date: 10/21/24 Status: Ordered Medication Dispense Status: Completed Quantity: 30.0 Unit: capsule Total Allowed Fills: 1 Fills Dispensed: 0 LORazepam 1 mg oral tablet See Instructions, TAKE 1 TABLET BY MOUTH EVERY 6 HOURS NEEDED FOR ANXIETY FOR 28 DAYS, # 112 tablet, 0 Refills, Maintenance, 06/12/23 12:03:00 PM EDT, [facility] #1234, 171, cm, 06/08/23 14:11:00 EDT, Height, 71, kg, 04/27/23 16:25:00 EST, Dry Weight Start Date: 06/12/23 Status: Ordered Medication Dispense Status: Completed Quantity: 112.0 Unit: tablet Total Allowed Fills: 1 Fills Dispensed: 0 One Touch Ultra Test Strips See Instructions, # 200 each, Refills 5, Tot. Refills 5, Maintenance, Take BG every 2 hours as needed for symptoms of low blood glucose, 08/06/22 9:50:00 PM EDT, Supply, 170, cm, 05/16/22 10:13:00 EDT,Height Start Date: 08/06/22 Status: Ordered Medication Dispense Status: Completed Quantity: 200.0 Unit: each Total Allowed Fills: 6 Fills Dispensed: 0 Indications: Hypoglycemia, unspecified; One Touch UltraSmart Glucose Meter See Instructions, # 1 each, Maintenance, To check blood glucose as needed, 06/08/22 4:36:00 PM EDT, Supply, 170, cm, 05/16/22 10:13:00 EDT, Height Start Date: 06/08/22 Status: Ordered Medication Dispense Status: Completed Quantity: 1.0 Unit: each Total Allowed Fills: 1 Fills Dispensed: 0 Indications: Hypoglycemia, unspecified; One Touch UltraSoft Lancets See Instructions, # 200 each, Refills 1, Tot. Refills 1, Maintenance, Use to check blood glucose every 2 hours as needed for symptoms of hypoglycemia, 06/08/22 4:38:00 PM EDT, Supply, 170, cm, 05/16/2309:13:00 EDT, Height Start Date: 06/08/22 Status: Ordered Medication Dispense Status: Completed Quantity: 200.0 Unit: each Total Allowed Fills: 2 Fills Dispensed: 0 Indications: Hypoglycemia, unspecified; propranolol 10 mg oral [...] opioid drug. Start Date: 06/20/24 Status: Ordered Medication Dispense Status: Completed Total Allowed Fills: 1 Fills Dispensed: 0 silver sulfADIAZINE 1% topical cream See Instructions, APPLY 1 APPLICATION TOPICALLY TWICE A DAY FOR 14 DAYS, # 85 Gm, 3 Refills, Maintenance, 03/07/23 4:22:00 AM EST, [facility]/pharmacy #1234, APPLY 1 APPLICATION TOPICALLY TWICE A DAY FOR 14 DAYS, 171, cm, 09/20/22 14:02:00 EDT, Height Start Date: 03/07/23 Status: Ordered Medication Dispense Status: Completed Quantity: 85.0 Unit: g Total Allowed Fills: 4 Fills Dispensed: 0 silver sulfADIAZINE 1% topical cream 1 applicator, Topically, 2 times a day, 0 Refills, Maintenance, 01/14/19 4:06:35 PM EST Start Date: 01/14/19 Status: Ordered Medication Dispense Status: Completed Total Allowed Fills: 1 Fills Dispensed: 0 silver sulfADIAZINE 1% topical cream 1 application, Topically, 2 times a day, # 50 Gm, 3 Refills, Maintenance, 09/20/22 2:42:00 PM EDT, Cream, [facility], Partial fill upon patient request if the prescription is for a schedule IIopioid drug., 1 application Topically 2 times a day, 171, cm, 09/20/22 14:02:00 EDT, Height Start Date: 09/20/22 Status: Ordered Medication Dispense Status: Completed Quantity: 50.0 Unit: g Total Allowed Fills: 4 Fills Dispensed: 0 traMADol 50 mg oral tablet 0 Refills, Maintenance, 07/22/24 9:14:00 AM EDT, Partial fill upon patient request if the prescription is for a schedule II opioid drug. Start Date: 07/22/24 Status: Ordered Medication Dispense Status: Completed Total Allowed Fills: 1 Fills Dispensed: 0 Zoloft 25 mg oral tablet See Instructions, Take 1/2 oral tab once daily for 7 days then take 1 tab once daily for 90 days, #90 tablet, 3 Refills, Maintenance, 09/20/22 2:52:00 PM EDT, Tablet, [facility], Partial fillupon patient request if the prescription is for a schedule II opioid drug., 171, cm, 09/20/22 14:02:00 EDT, Height Start Date: 09/20/22 Status: Ordered Medication Dispense Status: Completed Quantity: 90.0 Unit: tablet Total Allowed Fills: 4 Fills Dispensed: 0 Problem List Condition Confirmation Course Effective Dates [...] than 100 in lifetime) entered on: 04/12/21 Sexual Orientation Self described orien tation: ; Straight or heterosexual Sex Sex Representation Female (finding) Patient Care team information Care Team Personnel Name: Mattie Raymundo MD Position: Reference Physician Member Role: PCP Address: [address] [place] [id number] Telecom: Care Team Related Persons Name: MARITZALIAM Foster Name: EVELINA FRANCIS Name: EVELINA FRANCIS Insurance Providers Guarantor name: KACI Health Plan Information #: 1 [facility] Payer Identifier: NA Member Number: [id number] Group Number: NA Subscriber Identifier: NA Relationship to Subscriber: self Coverage Type: Commercial Managed Care - HMO Coverage Verification Date: NA Telecom: NA Address: Health Plan Information #: 2 Payer: [facility] NON P HMO P Payer Identifier: NA Member Number: [id number] Group Number: NA Subscriber Identifier: NA Relationship to Subscriber: self Coverage Type: Other Private Insurance Coverage Verification Date: NA Telecom: NA Address:
[2024-12-30 14:12] LABS: MANUAL DIFF FLAG NO
[2024-12-30 14:23] LABS: Hematocrit 35.6 % (37.0-47.0); Hemoglobin 10.4 g/dl (12.0-16.0); Imm Gran Abs Auto 0.01 X10*3/uL (0.00-0.03); Imm Gran Pct Auto 0.2 % (0.0-0.4); Lymphocytes Absolute Auto 1.8 X10*3/uL (1.2-4.9); Mean Corpuscular HGB Conc 29.2 g/dl (31.0-35.0); Mean Corpuscular Hemoglobin 22.7 pg (27.0-33.0); Mean Corpuscular Volume 77.6 fL (80.0-98.0); NRBC Abs Auto 0.000 X10*3/uL (0.0-0.012); NRBC Pct Auto 0.0 /100WBC (0.0-0.2); Platelet Count 258 X10*3/uL (160-400); Red Blood Count 4.59 X10*6/uL (4.20-5.50); White Blood Count 5.6 X10*3/uL (4.8-10.8)
[2024-12-30 15:18] LABS: Folate 6.8 ng/mL (> or = 4.0); Vitamin B12 201 pg/mL (200-900)
[2024-12-30 15:23] LABS: Alanine Aminotransferase 10 U/L (0-31); Albumin Level 4.2 g/dL (3.5-5.0); Alkaline Phosphatase 90 U/L (39-117); Anion Gap 11 (12-20); Aspartate Amino Transferase 18 U/L (5-31); Blood Urea Nitrogen 13 mg/dL (9-16); Calcium 8.8 mg/dL (8.4-10.2); Carbon Dioxide 27 mmol/L (22-29); Chloride 109 mmol/L (96-108); Estimated Glomerular Filt Rate > 60; Iron 30 mcg/dL (30-160); Percent Iron Saturation 9 % (15-50); Potassium 4.2 mmol/L (3.3-5.1); Sodium 143 mmol/L (135-145); Total Iron Binding Capacity 346 mcg/dL (228-428); Total Protein 7.1 g/dL (6.5-8.0); Unsaturated Iron Binding 316 ug/dL
[2024-12-30 15:29] LABS: Free T4 (Free Thyroxine) 1.19 ng/dL (0.71-1.85); Thyroid Stimulating Hormone 0.22 uIU/mL (0.32-4.0)
--- OUTSIDE RECORDS SUMMARY | 2024-12-30 15:44 | XMS_ITS | Clinical Summary ---
Author Organization [facility] Address [address] [place] [address] Care Team Providers Care Child Welfare Caseworker Name Role Phone Mattie Raymundo MD Primary Care Provider [phone] Allergies Active Allergy Reactions Criticality Noted Date [...] 50+ (1 of 1 - PCV) 2014 RSV Vaccine 50 years and old er and Patients (1 - Risk 50-74 years 1-dose series) 2014 Zoster (Shingles) Vaccine (1 of 2) 2014 Influenza Vaccine 10/04/2024 COVID-19 Vaccine ( - 2023-2 5 season) 2024 Hepatitis B Vaccines Aged Out No long er eligible based on patient's age to complete this topic Insurance [facility] Care Teams Child Welfare Caseworker Relationship Specialty Start Date End Date Mattie Raymundo MD [address] [place] [phone] PCP - General Internal Medicine 10/18/23
[2024-12-31 22:18] LABS: Thyroglobulin Antibodies 1 IU/mL (< or = 1)
[2025-01-03 22:53] LABS: VITAMIN D (1,25 OH) D3 71 pg/mL; Vit D (1,25-Dihydroxy) Total 80 pg/mL (18-72); Vitamin D (1,25 OH) D2 9 pg/mL
== END 2024-12-30 12:24 | disposition home or self-care (01) ==
LOC: HO.WFDLDS 12:23
PROVIDERS: Referring Provider Student in an Organized Health Care Education/Training Program; Visit Provider Internal Medicine
DX: C73 Malignant neoplasm of thyroid gland (principal); E03.8 Other specified hypothyroidism; E06.3 Autoimmune thyroiditis; R53.83 Other fatigue
CPT/HCPCS: 36415; 80053; 82607; 82652; 82746; 83540; 84432; 84439; 84443; 85025; 86376; 86800

== ENCOUNTER 2025-01-06 15:22 | Outpatient (AMB) | payer OTHER, SELFPAY ==
[2025-01-06 15:25] VITALS: BP 118/78; PULSE 78; RESP 14; TEMP 36.4; O2SAT 96; BMI 29.3
--- NOTE | 2025-01-06 15:25 | MHC.PC.OV ---
Vital Signs 01/06/25 15:25 Height 5 ft 7 in Weight 187 lb 2 oz BMI 29.3 BP 118/78 Blood Pressure Location Lt brachial Position Sitting Respiration 14 Pulse 78 Pulse Source Pulse Oximeter Temp 97.5 F Temp Source Oral Pulse Oximetry (%) 96 Oxygen Delivery Method Room Air Intake Visit Reasons: follow up Intake Note: Follow up Allergies prochlorperazine (From Compazine) Allergy (Unknown, Verified 01/06/25 15:26) Throat closes Tobacco use date assessed: 01/06/25 Dental Screening Dental Screen Date: 10/01/24 HPI HPI Comments History of Present Illness Details 59 y/o female with past medical history of recurrent sinusitis, SVT likely POTS, anxiety & depression, hypothyroid, anemia presenting for follow up Thyroid cancer: following [facility] endocrine. Status post right thyriodectomy 10/2024, left lobectomy and isthmus 07/24/[address] 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 Stage I, pT1b NX. AJCC stage I, DAVID low risk of recurrence. Anxiety/depression: Doing well on wellbutrin, cymbalta combination, lorazepam. off zoloft which she did tolerate. CV: Following with cardiology at [facility]. SVT, POTS. Taking propranolol She has gained weight during the last year. Feels that her buttocks, thighs and legs are tight. Not frankly painful. GI: Leans toward consipation. Worse recently. More abdominal bloating. Now has hemorroids -brbpr intermittently. She is anemic. Low iron and b12. Has not recently been taking iron. Had cologuard a few years ago will repeat but also willing to discuss with GI Recurrent sinus infection-has seen ENT. Current flare ROS see HPI PHYSICAL EXAM: GENERAL: Alert and oriented x 3. NAD EYES: EOMI. Anicteric. HENT: Moist mucous membranes. Boggy nasal mucosa LUNGS: Clear to auscultation bilaterally. CARDIOVASCULAR: Regular rate and rhythm. No murmur. No JVD. ABDOMEN: Distended, visibly bloated, tender to palptation +bs, no rebound or rigidity EXTREMITIES: No edema. Non-tender. SKIN: No rashes or lesions. Warm. NEUROLOGIC: No focal neurological deficits. CN II-XII grossly intact PSYCHIATRIC: Cooperative. Appropriate mood and affect [facility] Medical History Thyroid cancer Vitamin D deficiency Multinodular goiter Depression Anxiety Psoriasis Headache Peptic ulcer POTS (postural orthostatic tachycardia syndrome) Palpitations Sinusitis Cyst of ovary Surgical History History of thyroid surgery Hx of dilation and curettage Hx of removal of cyst History of laparoscopic appendectomy Hx of biopsy Family History Father HTN (hypertension) Hypercholesteremia Cardiovascular disease Basal cell carcinoma Mother Hypercholesteremia Thyroid disorder Anxiety Other Mental disorder Social History Housing: House Patient Tobacco Use Status: Never used Tobacco e-Cigarette/Vaping Use: Never Used service: No Current occupational status: employed 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 Current occupational exposures/hazards: No Cognitive needs: No Hearing needs: No Vision needs: Yes (glasses) Questionnaire Thrive Questionnaire Date Thrive assessed: 03/14/24 I am a: Patient What is your living situation today?: I have a steady place to live Within the past 12 months, did the food you bought not last and you didn't have the money to get more?: Never true Within the past 12 months, did you worry whether your food would run out before you got money to buy more?: Never true Do you have trouble paying for medicines?: No Do you have trouble getting transportation to medical appointments?: No Do you have trouble paying your heating and electricity bill?: No Do you have trouble taking care of your child, family member or friend?: No Do you have trouble with day-to-day activities such as bathing, preparing meals, shopping, managing finances, etc.?: No Are you currently unemployed and looking for a job?: No Are you interested in more education?: No Please select the resources that you would like help with: None Currently or been in a relationship where the following occur: I choose not to answer THRIVE Score: 0 AUDIT C Alcohol Use Questionnaire (AUDIT-C) 1. How often do you have a drink containing alcohol?: Never 3. How often do you have six or more drinks on one occasion?: Never Total Score: 0 TANVI-7 AMB Questionnaire TANVI-7 Date TANVI - 7 assessed: 09/01/23 Source: Developed by Drs. Konstantin Joy, Cata Romero, Román Cagle and colleagues, with an educational jarett from [employer]. Physical exam (Primary Care) Vital Signs: Last Vital Signs Temp 97.5 F 01/06/25 15:25 Pulse 78 01/06/25 15:25 Resp 14 01/06/25 15:25 BP 118/78 01/06/25 15:25 Pulse Ox 96 01/06/25 15:25 Oxygen Delivery Method Room Air 01/06/25 15:25 BMI result Body Mass Index 29.3 Tobacco/Smoking Status: Tobacco use Status Tobacco use date assessed 01/06/25 01/06/25 15:30 Patient Tobacco Use Status Never used Tobacco 01/06/25 15:30 e-Cigarette/Vaping Use Never Used 01/06/25 15:30 Thrive Assessment: Date of Thrive Assessment Date Thrive assessed 03/14/24 01/06/25 15:30 Currently or been in a relationship where the following occur: I choose not to answer Coding Level of Care Code Est Pt Level 4 (74127) Complex EM visit Add On G2211 Diagnoses Thyroid cancer C73 Change in bowel function R19.8 Depression, major, recurrent, in partial remission F33.41 Assessment & Plan Assessment & Plan (1) Thyroid cancer: Code(s): C73 - Malignant neoplasm of thyroid gland Category: Medical (2) Change in bowel function: Code(s): R19.8 - Other specified symptoms and signs involving the digestive system and abdomen Category: Medical (3) Depression, major, recurrent, in partial remission: Code(s): F33.41 - Major depressive disorder, recurrent, in partial remission Category: Medical Plan Anemia-chronic, however with bowel changes recommend colonoscopy. Referral placed to GI. cologuard also ordered Thyroid cancer s/p near total thyroidectomy-TSH suppressed on current dosing Anxiety & depression are stable Sinusitis, subacute-azithromycin sent Orders: Orders Magnesium 01/06/25 R25.2 - Cramp and spasm Referrals Cologuard Test Z12.11 - Encounter for screening for malignant neoplasm of colon, Z12.12 - Encounter for screening for malignant neoplasm of rectum Gastroenterology Referral D64.9 - Anemia, unspecified, Z12.11 - Encounter for screening for malignant neoplasm of colon Medications: New polyethylene glycol 3350 (Miralax) 17 grams PO DAILY 510 grams 3RF azithromycin 500 mg PO DAILY 5 tabs 3RF 5 days Changed From propranolol 10 mg PO BID 180 tabs 1RF To propranolol 10 mg PO TID 270 tabs 1RF
--- OUTSIDE RECORDS SUMMARY | 2025-01-06 16:38 | XMS_ITS | Clinical Summary ---
Author Organization [facility] Address [address] [place] [address] Care Team Providers Care Ad Taker Name Role Phone Mattie Raymundo MD Primary Care Provider [phone] Allergies Active Allergy Reactions Criticality Noted Date [...] patient's age to complete this topic Insurance [facility] Care Teams Ad Taker Relationship Specialty Start Date End Date Mattie Raymundo MD [address] [place] [phone] PCP - General Internal Medicine 10/18/23
== END 2025-01-06 15:57 | disposition home or self-care (01) ==
LOC: HO.HMCFM 15:24
PROVIDERS: PCP Internal Medicine; Visit Provider Internal Medicine
DX: C73 Malignant neoplasm of thyroid gland (principal); R19.8 Other specified symptoms and signs involving the digestive system and abdomen; F33.41 Major depressive disorder, recurrent, in partial remission